=== PATIENT | male | born 1955 | race Caucasian/White ===

== ENCOUNTER 2019-07-28 12:46 | Outpatient (RCR) | payer OTHER, SELFPAY ==
[2019-07-28 13:01] VITALS: BMI 48.0
== END 2019-10-26 23:59 | disposition home or self-care (01) ==
LOC: ANHDMC 12:46
PROVIDERS: PCP Internal Medicine; Visit Provider Internal Medicine Endocrinology, Diabetes & Metabolism
DX: E11.65 Type 2 diabetes mellitus with hyperglycemia (principal); Z71.3 Dietary counseling and surveillance
CPT/HCPCS: 97802

== ENCOUNTER 2020-04-01 16:06 | Emergency (ER) | payer OTHER, SELFPAY ==
--- NOTE | ~2020-04-01 | XR_ITS ---
EXAMINATION: XR chest 2V DATE: 04/01/2020 18:16 INDICATION: Chest pain. TECHNIQUE: Frontal and lateral views of the chest were obtained. COMPARISON: Chest 2 views 03/15/2011 FINDINGS: The chest demonstrates clear lungs without pneumonia, pleural effusion, or pneumothorax. Th e heart size is normal. IMPRESSION: 1. No acute cardiopulmonary disease. Reviewed, dictated and finalized at location A.
[2020-04-01 16:33] VITALS: BP 143/88; PULSE 99; RESP 20; TEMP 36.3; O2SAT 98
--- NOTE | 2020-04-01 16:39 | ECG_ITS ---
Measurements Intervals [place] Rate: 92 P: 24 MS: 147 QRS: -38 QRSD: 88 T: 37 QT: 340 QTc: 422 Interpretive Statements SINUS RHYTHM LEFT AXIS DEVIATION LOW QRS VOLTAGE IN PRECORDIAL LEADS POOR R WAVE PROGRESSION, ANTERIOR LEADS BORDERLINE ECG Electronically Signed On 04-01-2020 20:28:48 CDT by Wai Bernal D.O.
[2020-04-01 16:51] LABS: Basophils Absolute Auto 0.1 K/mm3 (0.0-0.1); Basophils Percent Auto 0.6 % (0.2-1.2); Eosinophils Absolute Auto 0.3 K/mm3 (0-0.3); Eosinophils Percent Auto 3.8 % (0-4.4); Hematocrit 42.1 % (42.0-52.0); Hemoglobin 14.5 g/dL (14.0-18.0); Immature Granulocyte Absolute 0.02 K/mm3 (0.00-0.031); Immature Granulocyte Percent A 0.2 % (0-0.5); Lymphocytes Absolute Auto 3.57 K/mm3 (0.9-3.2); Lymphocytes Percent Auto 43.8 % (18.3-44.2); Mean Corpuscular HGB Conc 34.4 g/dl (32-36); Mean Corpuscular Hemoglobin 31.6 pg (26-34); Mean Corpuscular Volume 91.7 fl (80-100); Mean Platelet Volume 9.6 fl (7.4-10.4); Monocytes Absolute Auto 0.8 K/mm3 (0.1-0.6); Monocytes Percent Auto 9.2 % (2.6-8.5); Neutrophils Absolute Auto 3.5 K/mm3 (1.3-6.7); Neutrophils Percent Auto 42.4 % (45.5-73.1); Platelet Count Result 265 k/mm3 (150-375); Red Blood Count 4.59 M/mm3 (4.6-6.20); Red Cell Distribution Width 12.6 % (11.5-14.5); White Blood Count 8.2 K/mm3 (4.5-10.0)
[2020-04-01 17:02] LABS: Prothrombin Time 13.1 Seconds (11.1-14.7)
[2020-04-01 17:03] LABS: Partial Thromboplastin Time 30.9 SECONDS (22.3-36.8)
[2020-04-01 17:06] LABS: Anion Gap 10 mmol/L (8-16); Blood Urea Nitrogen 20 mg/dL (9-20); Calcium 10.3 mg/dL (8.4-10.2); Carbon Dioxide 24 mmol/L (22-30); Chloride 103 mmol/L (98-107); Estimated CRCL calculation 104 ml/min; Estimated Glomerular Filt Rate > 60; Glucose 203 mg/dL (75-110); Potassium 4.2 mmol/L (3.4-5.0); Sodium 137 mmol/L (137-145)
[2020-04-01 17:17] LABS: Troponin I < 0.012 ng/mL (0.000-0.034)
--- NOTE | 2020-04-01 18:50 | PC.NURSE ---
PT REFUSING IV AT THIS TIME DESPITE HAVING RATIONALE FOR IV IN CARDIAC PT EXPLAINED
--- NOTE | 2020-04-01 18:51 | ED.ARRPALP ---
HPI - Arrhythmia/Palpitations General Chief Complaint: Arrhythmia/Palpitations Stated Complaint: heart racing Time Seen by Provider: 04/01/20 18:40 Source: patient Mode of arrival: ambulatory Limitations: no limitations History of Present Illness HPI narrative: Patient is a 64-year-old male who presents to emergency department for evaluation of an episode of feeling like his heart was racing after walking from the bathroom to the bedroom lasted 20 minutes and resolved patient notes he felt slightly dyspneic during this.. Patient notes he has had resolution of his symptoms since then denies any complaints at this time symptoms occurred at approximately 3:00 today. Related Data Home Medications Medication Instructions Recorded Confirmed aspirin 81 mg tablet,delayed 81 mg PO DAILY 07/27/19 12/29/19 release glucosamine sulfate 500 mg tablet 500 mg PO DAILY tablet 07/27/19 12/29/19 Allergies Allergy/AdvReac Type Severity Reaction Status Date / Time No Known Allergies Allergy Verified 04/01/20 18:52 Review of Systems Review of Systems: All systems reviewed & are unremarkable except as noted in HPI and below PMFSH Social History Social History Smoking packs per day: 3 Smoking cigarettes per day: 60.0 Years smoked: 45 Smoking pack-years: 135.00 Smoking status: Current every day smoker Tobacco type: cigarettes Second hand tobacco smoke exposure: Yes Alcohol intake: never Gender identity (if verbalized by the patient): Male Sexual Orientation (if Verbalized by the Patient): Straight or Heterosexual Spiritual care concerns: No Exam Narrative: Exam Narrative: GENERAL: Well-appearing, obese, and in no acute distress. HEAD: Normocephalic, atraumatic. EYES: PERRLA and EOMI. ENT: Nares clear, no rhinorrhea or epistaxis. Mucous membranes moist. Oropharynx without tonsillar hypertrophy exudate or other lesions. NECK: Supple. No adenopathy or masses. No carotid bruits or JVD CHEST: Clear to auscultation. No respiratory distress. No wheezes rales or rhonchi HEART: Regular rate and rhythm. No murmur heard. Normal peripheral pulses. ABDOMEN: Soft, nontender, nondistended EXTREMITIES: Normal range of motion. No edema. SKIN: Warm, dry, no rash. NEURO: No focal deficits. Alert and oriented x3. Cranial nerves II through XII grossly intact PSYCH: Normal mood and affect. Course Course Emergency Course: Has been asymptomatic since onset felt appropriate for outpatient reevaluation made aware of case findings treatment plan and diagnosis patient in the room in no distress Vital Signs Vital signs: Vital Signs Temperature 97.3 F L 04/01/20 16:33 Pulse Rate 99 04/01/20 16:33 Respiratory Rate 20 04/01/20 16:33 Blood Pressure 143/88 H 04/01/20 16:33 Pulse Oximetry 98 04/01/20 16:33 Temperature 97.3 F L 04/01/20 16:33 Pulse Rate 82 04/01/20 18:54 Respiratory Rate 16 04/01/20 18:54 Blood Pressure 157/98 H 04/01/20 18:54 Pulse Oximetry 98 04/01/20 18:54 MDM - Arrhythmia/Palpitations MDM Narrative Medical decision making narrative: Patients EKGs and labs are without significant high risk changes. Cardiac risk factors were reviewd. Pain was not suddne or maximal in onset without tearing or ripping. quality. No other signs or symptoms to suggest aortic dissection. A low-risk Wells criteria is noted. PE is felt to be unlikely. No pneumonia or URI symptoms were seen on evaluation today. Patient is felt to b resonable for continued evaluation as an outpatient. Lab Data Result diagrams: 04/01/20 16:42 04/01/20 16:42 Labs: Lab Results 04/01/20 04/01/20 04/01/20 Range/Units 16:42 16:42 16:42 WBC 8.2 (4.5-10.0) K/mm3 RBC 4.59 L (4.6-6.20) M/mm3 Hgb 14.5 (14.0-18.0) g/dL Hct 42.1 (42.0-52.0) % MCV 91.7 (80-100) fl MCH 31.6 (26-34) pg MCHC 34.4 (32-36) g/dl
[2020-04-01 18:54] VITALS: BP 157/98; PULSE 82; RESP 16; O2SAT 98
[2020-04-01 19:57] LABS: Troponin I 0.025 ng/mL (0.000-0.034)
[2020-04-01 20:16] VITALS: BP 148/86; PULSE 78; RESP 16; TEMP 36.7; O2SAT 98
== END 2020-04-01 20:33 | disposition home or self-care (01) ==
PROVIDERS: Emergency Medicine; Emergency Provider Emergency Medicine; PCP Internal Medicine
DX: R00.2 Palpitations (principal); F17.210 Nicotine dependence, cigarettes, uncomplicated; Z79.82 Long term (current) use of aspirin; R07.9 Chest pain, unspecified
CPT/HCPCS: 36415; 71046; 80048; 84484; 85025; 85610; 85730; 93005; 99284

== ENCOUNTER 2020-06-15 13:45 | Outpatient (CLI) | payer OTHER, SELFPAY ==
--- NOTE | ~2020-06-15 | CT_ITS ---
EXAMINATION: CT abdomen pelvis wo/w con DATE: 06/15/2020 14:44 INDICATION: Gross hematuria TECHNIQUE: Computed tomography (CT) of the abdomen and pelvis was performed without intravenous contr ast. CT of the abdomen and pelvis was then performed with a total of 130 mL Omnipaque-350 intravenous contrast using a double-bolus technique for simultaneous opacification of the renal parenchyma and r enal collecting system. Automated exposure control and iterative reconstruction technique were employ ed. The dose-length product was 2837.50 mGy-cm. COMPARISON: 08/23/2016 FINDINGS: Lung bases are clear. Heart size is normal. No pericardial or pleural effusion. Liver, gallbladder, s pleen, pancreas and bilateral adrenal glands are normal. There is mild colonic diverticulosis with a sigmoid predominance. There is no adjacent inflammatory change to suggest diverticulitis. Small marilee l and a tiny appendix are normal. Fat-containing umbilical hernia measuring 5 x 4 x 3.8 cm. No free i ntraperitoneal gas or fluid. No pathologically enlarged abdominal or pelvic lymphadenopathy. Moderate to severe lower lumbar facet osteoarthritis. [place]'s disease. There are bridging osteophytes at mu ltiple levels in the lower thoracic spine, consistent with diffuse idiopathic skeletal hyperostosis ( DISH). Bilateral nephrolithiasis. There are couple obstructing 4 mm stones in the proximal right ureter with moderate right hydronephrosis. There are numerous (likely 20-30) 1-3 mm stones in the dependent aspe ct of both a middle and lower calyx of the right kidney. 5 mm nonobstructing stone at the left ureter opelvic junction with no left-sided hydronephrosis. Additional 1 mm stone at a lower pole of the left kidney. Bilateral kidneys enhance symmetrically. 1.4 cm right renal cyst. There is a small amount of excreted contrast layering in the dependent calyces and renal pelvis of the right kidney. The left r enal collecting system proximal to mid left ureter beyond the stone at the ureterovesicular junction are opacified with contrast and appear unremarkable with no urothelial irregularities. Bladder is nor mal. IMPRESSION: 1. Bilateral nephrolithiasis with large numerous 1-3 mm right renal stones and a couple larger 4 mm o bstructing stones in the proximal right ureter resulting in moderate right hydronephrosis. 2. 5 mm nonobstructing stone at the left ureteropelvic junction with only a single additional 1 mm le ft renal stone. 3. Moderate-sized fat-containing umbilical hernia. Reviewed, dictated and finalized at location A. TAL CAMPAIGN FUNDRAISER IMPRESSION: 1. Bilateral nephrolithiasis with large numerous 1-3 mm right renal stones and a couple larger 4 mm obstructing stones in the proximal right ureter resulting in moderate right hydronephrosis. 2. 5 mm nonobstructing stone at the left ureteropelvic junction with only a sin gle additional 1 mm left renal stone. 3. Moderate-sized fat-containing umbilical hernia.
--- NOTE | ~2020-06-15 | XR_ITS ---
XR abdomen/kub 1V 06/15/2020 14:11 INDICATION: Gross hematuria TECHNIQUE: KUB COMPARISON: Comparison to multiple prior studies sequentially, with oldest reviewed study dated 10/31. FINDINGS: Bowel gas pattern is normal. There is no evidence of free air, mass, organomegaly, ascites or obstruction. There are calcifications on the right at the L4 level, compatible with ureteral ston es. The bones appear intact. Lung bases are unremarkable. There are clustered stones in the lower amos e of the right kidney. IMPRESSION: 1: Right mid ureteral stones at the L4 level. 2: Right renal stones.. Reviewed, dictated and finalized at location B. TYPE MACHINIST
[2020-06-15 14:25] LABS: Estimated Glomerular Filt Rate > 60
== END 2020-06-15 13:46 | disposition home or self-care (01) ==
PROVIDERS: PCP Internal Medicine; Visit Provider Nurse Practitioner Adult Health
DX: N13.4 Hydroureter (principal); K42.9 Umbilical hernia without obstruction or gangrene; N20.2 Calculus of kidney with calculus of ureter
CPT/HCPCS: 74018; 74178; Q9967

== ENCOUNTER 2020-06-24 13:02 | Outpatient (CLI) | payer OTHER, SELFPAY ==
[2020-06-24 13:49] LABS: INR 0.9; Prothrombin Time 13.2 Seconds (11.1-14.7)
[2020-06-24 13:50] LABS: Partial Thromboplastin Time 32.6 SECONDS (22.3-36.8)
[2020-06-24 13:57] LABS: Anion Gap 10 mmol/L (8-16); Blood Urea Nitrogen 19 mg/dL (9-20); Carbon Dioxide 28 mmol/L (22-30); Chloride 101 mmol/L (98-107); Estimated Glomerular Filt Rate > 60; Glucose 263 mg/dL (75-110); Potassium 4.3 mmol/L (3.4-5.0); Sodium 139 mmol/L (137-145)
== END 2020-06-24 13:03 | disposition home or self-care (01) ==
LOC: ANHSURGERY 13:03
PROVIDERS: Anesthesiology; PCP Internal Medicine; Visit Provider Urology
DX: Z01.818 Encounter for other preprocedural examination (principal); E11.65 Type 2 diabetes mellitus with hyperglycemia; N20.1 Calculus of ureter
CPT/HCPCS: 36415; 80048; 85610; 85730; 87086; 87088

== ENCOUNTER 2020-06-28 02:19 | Outpatient (CLI) | payer OTHER, SELFPAY ==
[2020-06-28 22:41] LABS: SARS-CoV-2 RNA PCR Negative
== END 2020-06-28 02:20 | disposition home or self-care (01) ==
LOC: ANHCOVIDDT 02:19
PROVIDERS: PCP Internal Medicine; Visit Provider Urology
DX: Z01.812 Encounter for preprocedural laboratory examination (principal); Z20.828 Contact with and (suspected) exposure to other viral communicable diseases
CPT/HCPCS: 87635; C9803; U0003

== ENCOUNTER 2020-07-26 01:29 | Outpatient (CLI) | payer OTHER, SELFPAY ==
[2020-07-26 19:22] LABS: SARS-CoV-2 RNA PCR Negative
== END 2020-07-26 01:30 | disposition home or self-care (01) ==
LOC: ANHCOVIDDT 01:30
PROVIDERS: PCP Internal Medicine; Visit Provider Urology
DX: Z01.812 Encounter for preprocedural laboratory examination (principal); Z20.822 Contact with and (suspected) exposure to COVID-19
CPT/HCPCS: C9803; U0003; U0005

== ENCOUNTER 2020-07-26 08:57 | Outpatient (CLI) | payer OTHER, SELFPAY ==
[2020-07-26 09:32] LABS: Prothrombin Time 13.3 Seconds (11.1-14.7)
[2020-07-26 09:33] LABS: Partial Thromboplastin Time 29.6 SECONDS (22.3-36.8)
== END 2020-07-26 08:58 | disposition home or self-care (01) ==
LOC: ANHSURGERY 08:59
PROVIDERS: PCP Internal Medicine; Visit Provider Urology
DX: Z01.818 Encounter for other preprocedural examination (principal); N20.1 Calculus of ureter
CPT/HCPCS: 36415; 85610; 85730; 87086; C9803; U0003; U0005

== ENCOUNTER 2020-07-29 02:30 | Day surgery (SDC) | payer OTHER, SELFPAY ==
[2020-06-22 15:33] VITALS: BMI 47.7
--- NOTE | 2020-06-30 10:00 | WPDANESEPPF ---
Anes - Initial Pre Proc Eval Procedure: Operation Date: 07/01/20 07:30 Proposed Procedures p Right Extracorporeal Shock Wave Lithotripsy - Timur Romo MD s Possible Cystoscopy, Possible Bilateral Ureteroscopy with Stone Extraction,Possible Bilateral Retrograde Pyelogram - Timur Romo MD s Possible Holmium Laser Procedure, Possible Bilateral Stent Placement - Timur Romo MD Date/Time: 06/30/20 10:00 Surgeon: Timur Romo MD Pre Op Diagnosis: bilateral ureteral stones Patient Data Age: 64 Gender: M Height: 1.68 m Weight: 134 kg Allergies Allergy/AdvReac Type Severity Reaction Status Date / Time No Known Allergies Allergy Verified 06/22/20 15:29 Home Medications Medication Instructions Recorded Confirmed Type blood sugar diagnostic #300 each 07/24/19 06/21/20 Rx aspirin 81 mg tablet,delayed 81 mg PO DAILY 07/27/19 06/22/20 History release glucosamine sulfate 500 mg tablet 500 mg PO HS tablet 07/27/19 06/22/20 History lancets 33 gauge See Rx Instructions .ROUTE 10/26/19 06/22/20 Rx .COMPLEX #300 unspecified metformin 500 mg tablet,extended 1,000 mg PO BID #360 tablet 03/28/20 06/22/20 Rx release 24 hr atorvastatin 10 mg PO QAM 06/22/20 06/22/20 History cetirizine [All Day Allergy 10 mg PO HS 06/22/20 06/22/20 History (cetirizine)] meloxicam 15 mg PO HS 06/22/20 06/22/20 History ycxxnwrf-pwb-CM-lycopen-lutein 1 tablet PO DAILY 06/22/20 06/22/20 History [Centrum Silver Men] quinapril-hydrochlorothiazide 1 tablet PO HS 06/22/20 06/22/20 History PMFSH Past Medical History Medical History (Updated 06/30/20 @ 10:00 by Maximo Vega DO) Benign essential hypertension Hyperlipidemia LDL goal <100 Morbid obesity Obstructive sleep apnea CPAP Type 2 diabetes mellitus with hyperglycemia Family History Family History Sibling Diabetes mellitus Patient's sister is in good health Patient's brother is in good health Family history of cardiovascular disease Father Family history of cardiovascular disease, Onset Age: 80 Mother Family history of cardiovascular disease, Onset Age: 90 Other Cerebrovascular accident Family history of arthritis Family history of lung disease Hypertension Social History Social History Smoking packs per day: 3 Smoking cigarettes per day: 60.0 Years smoked: 45 Smoking pack-years: 135.00 Smoking status: Current every day smoker Tobacco type: cigarettes Second hand tobacco smoke exposure: Yes Additional smoking assessment comments: STATES SMOKES 3-4 CIGS/DAY/45-50YRS Alcohol intake: never Substance use: never Substance use type: does not use Gender identity (if verbalized by the patient): Male Spiritual care concerns: No Anes - Eval Final PreProcedure Day of Procedure 06/30/20 10:00 Patient weight: morbidly obese Heart: regular rate and rhythm Lungs: clear to auscultation and normal air movement Airway: Mallampati scale class II Neurological: alert and oriented Last oral intake: >/= 8 hours ASA classification: III Emergent: no Anesthetic plan: proceed Anesthesia type and monitoring: general LMA and standard monitoring Informed Consent: The patient's anesthetic plan and its attendant risks and benefits were discussed with the patient/family/POA. Questions were solicited and answers provided to the satisfaction of the patient/family/POA.
[2020-07-25 15:58] VITALS: BMI 45.8
[2020-07-29] VITALS (7 sets, daily range): BP systolic 120–171; BP diastolic 67–98; PULSE 64–75; RESP 12–20; TEMP 36.1–36.6; O2SAT 94–99
--- NOTE | ~2020-07-29 | XR_ITS ---
EXAMINATION: XR abdomen/kub 1V INDICATION: Urolithiasis and hematuria TECHNIQUE: Supine views of the abdomen were obtained on 2 radiographs. COMPARISON: CT, 06/15/2020 FINDINGS: An 8 mm stone projects in the expected location of the left ureteropelvic junction. Stones measuring 2.8 and 2.2 cm are seen in the lower pole of the right kidney. Two adjacent stones measurin g 10 mm in total size project in the right mid ureter between the L4 and L5 transverse processes. The bowel gas pattern is normal. Prostatic calcifications are noted. IMPRESSION: 1. Stones at the left ureteropelvic junction, in the right mid ureter, and in the right kidney lower pole. Reviewed, dictated and finalized at location A. T PLANNER IMPRESSION: 1. Stones at the left ureteropelvic junction, in the right mid ureter, and in t he right kidney lower pole.
--- NOTE | 2020-07-29 06:55 | PM.HPGS ---
History of Present Illness History of Present Illness Consent: Risks, benefits, and alternatives have been discussed and questions answered. Patient agrees to proceed with procedure. Chief complaint: bilateral ureteral stones Narrative: Adi Estrella Jr. is a 64 year old male who recently underwent evaluation for hematuria. CT scan of the abdomen and pelvis revealed multiple renal and ureteral calculi. Specifically he has multiple small stones right kidney, an obstructing 6-7 mm right mid ureteral stone and a 5 mm left renal pelvic stone. Review of Systems Cardiovascular: Cardiovascular: Denies chest pain, Denies lightheadedness, Denies palpitations and Denies dyspnea Respiratory: Respiratory: Denies dyspnea Gastrointestinal: Gastrointestinal: Denies diarrhea, Denies nausea and Denies vomiting Genitourinary: Genitourinary: Denies hematuria and Denies dysuria Endocrine: Endocrine: Denies palpitations [facility] Past Medical History Medical History Benign essential hypertension Hyperlipidemia LDL goal <100 Morbid obesity Obstructive sleep apnea CPAP Type 2 diabetes mellitus with hyperglycemia Family History Family History Sibling Diabetes mellitus Patient's sister is in good health Patient's brother is in good health Family history of cardiovascular disease Father Family history of cardiovascular disease, Onset Age: 80 Mother Family history of cardiovascular disease, Onset Age: 90 Other Cerebrovascular accident Family history of arthritis Family history of lung disease Hypertension Social History Social History Smoking packs per day: 0.25 Smoking cigarettes per day: 5.0 Years smoked: 50 Smoking pack-years: 12.50 Smoking status: Current every day smoker Tobacco type: cigarettes Second hand tobacco smoke exposure: Yes Additional smoking assessment comments: STATES SMOKES 3-4 CIGS/DAY/45-50YRS Alcohol intake: never Alcohol use details: SOCIALLY YEARS AGO Substance use: never Substance use type: does not use Living arrangements: with family Additional living arrangements comments: Gender identity (if verbalized by the patient): Male Spiritual care concerns: No Meds Home Medications and Allergies Home Medications Medication Instructions Recorded Confirmed Type blood sugar diagnostic #300 each 07/24/19 07/25/20 Rx aspirin 81 mg tablet,delayed 81 mg PO DAILY 07/27/19 07/25/20 History release glucosamine sulfate 500 mg tablet 500 mg PO HS tablet 07/27/19 07/25/20 History lancets 33 gauge See Rx Instructions .ROUTE 10/26/19 07/25/20 Rx .COMPLEX #300 unspecified atorvastatin 10 mg PO QAM 06/22/20 07/25/20 History cetirizine [All Day Allergy 10 mg PO HS 06/22/20 07/25/20 History (cetirizine)] meloxicam 15 mg PO HS 06/22/20 07/25/20 History pzkdrogh-ydn-PZ-lycopen-lutein 1 tablet PO DAILY 06/22/20 07/25/20 History [Centrum Silver Men] quinapril-hydrochlorothiazide 1 tablet PO HS 06/22/20 07/25/20 History metformin 500 mg tablet,extended 1,000 mg PO BID #360 tablet 07/11/20 07/25/20 Rx release 24 hr Allergies Allergy/AdvReac Type Severity Reaction Status Date / Time No Known Allergies Allergy Verified 07/25/20 15:53 Exam Const: General: no acute distress Resp: Effort & Inspection: normal respiratory effort GI: Inspection: non-distended GI Palp: No abdominal tenderness and No Guarding due to palpation present (GI) Auscultation: normal bowel sounds Assessment and Plan Assessment and plan (1) Bilateral renal stones: Code(s): N20.0 - Calculus of kidney Status: Acute (2) Right ureteral stone: Code(s): N20.1 - Calculus of ureter Status: Acute Assessment and Plan: Cystoscopy, right ureteral stent plac
[2020-07-29 07:55] LABS: Glucose Point of Care 155 (65-105)
[2020-07-29] MEDS: LACTATED RINGERS 1,000 ML 30 ML IV CONT ×2 (08:06→11:14)
--- NOTE | 2020-07-29 08:25 | WPDHPUPDATE1 ---
History and Physical Update Update Date/Time: 07/29/20 08:25 History and Physical has been reviewed, including an updated exam of the patient. There are NO changes in the patient's condition. Risks, benefits, and alternatives have been discussed and questions answered. Patient agrees to proceed with procedure.
--- NOTE | 2020-07-29 09:08 | WPDANESEPPF ---
Anes - Initial Pre Proc Eval Procedure: Operation Date: 07/29/20 09:30 Proposed Procedures p Right Extracorporeal Shock Wave Lithotripsy - Timur Romo MD s Possible Cystoscopy, Possible Bilateral Ureteroscopy with Stone Extraction,Possible Bilateral Retrograde Pyelogram - Timur Romo MD s Possible Holmium Laser Procedure, Possible Bilateral Stent Placement - Timur Romo MD Date/Time: 07/29/20 09:08 Surgeon: Timur Romo MD Pre Op Diagnosis: bilateral ureteral stones Patient Data Age: 64 Gender: M Height: 5 ft 6 in Weight: 131.2 kg Last Vital Signs Temp 36.6 C 07/29/20 08:12 Pulse 75 07/29/20 08:12 Resp 16 07/29/20 08:12 BP 150/78 H 07/29/20 08:12 Pulse Ox 97 07/29/20 08:12 Allergies Allergy/AdvReac Type Severity Reaction Status Date / Time No Known Allergies Allergy Verified 07/29/20 07:45 Home Medications Medication Instructions Recorded Confirmed Type blood sugar diagnostic #300 each 07/24/19 07/25/20 Rx aspirin 81 mg tablet,delayed 81 mg PO DAILY 07/27/19 07/29/20 History release glucosamine sulfate 500 mg tablet 500 mg PO HS tablet 07/27/19 07/29/20 History lancets 33 gauge See Rx Instructions .ROUTE 10/26/19 07/25/20 Rx .COMPLEX #300 unspecified atorvastatin 10 mg PO QAM 06/22/20 07/29/20 History cetirizine [All Day Allergy 10 mg PO DAILY 06/22/20 07/29/20 History (cetirizine)] meloxicam 15 mg PO HS 06/22/20 07/29/20 History dgewskxt-phi-IA-lycopen-lutein 1 tablet PO DAILY 06/22/20 07/29/20 History [Centrum Silver Men] quinapril-hydrochlorothiazide 1 tablet PO DAILY 06/22/20 07/29/20 History metformin 500 mg tablet,extended 1,000 mg PO BID #360 tablet 07/11/20 07/29/20 Rx release 24 hr Laboratory Tests 07/29/20 07:53 POC Capillary Glucose 155 mg/dl H mg/dl (65-105) Patient hx anesthesia problems: none Family hx anesthesia problems: none PMFSH Past Medical History Medical History Benign essential hypertension Hyperlipidemia LDL goal <100 Morbid obesity Obstructive sleep apnea CPAP Type 2 diabetes mellitus with hyperglycemia Family History Family History Sibling Diabetes mellitus Patient's sister is in good health Patient's brother is in good health Family history of cardiovascular disease Father Family history of cardiovascular disease, Onset Age: 80 Mother Family history of cardiovascular disease, Onset Age: 90 Other Cerebrovascular accident Family history of arthritis Family history of lung disease Hypertension Social History Social History Smoking packs per day: 0.25 Smoking cigarettes per day: 5.0 Years smoked: 50 Smoking pack-years: 12.50 Smoking status: Current every day smoker Tobacco type: cigarettes Second hand tobacco smoke exposure: Yes Additional smoking assessment comments: STATES SMOKES 3-4 CIGS/DAY/45-50YRS Alcohol intake: never Alcohol use details: SOCIALLY YEARS AGO Substance use: never Substance use type: does not use Living arrangements: with family Additional living arrangements comments: Gender identity (if verbalized by the patient): Male Spiritual care concerns: No Anes - Eval Final PreProcedure Day of Procedure 07/29/20 09:08 Patient weight: morbidly obese Heart: regular rate and rhythm Lungs: clear to auscultation Airway: Mallampati scale class II Neurological: alert and oriented Last oral intake: >/= 8 hours ASA classification: III Emergent: no Anesthetic plan: proceed Anesthesia type and monitoring: general LMA and standard monitoring Informed Consent: The patient's anesthetic plan and its attendant risks and benefits were discussed with the patient/family/POA. Questions were solicited and answers provided to the satisfaction of t
[2020-07-29] MEDS: ceFAZolin 3 GM/D5W 100 ML 100 ML IVPB (09:41)
[2020-07-29] MEDS: LIDOCAINE HCL 2% GEL UROJET 10 ML PKG MUCOUS MEM (10:00)
--- NOTE | 2020-07-29 10:56 | PM.PROC ---
Procedure Note - Detailed Date of procedure: 07/29/20 Pre-op diagnosis: bilateral ureteral stones Post-op diagnosis: same Procedure performed: 1. Cystoscopy with left ureteroscopy, laser lithotripsy and stone extraction 2. Bilateral ureteral stent placement 3. Right ureteral ESWL Description of procedure: patient is brought to the operative suite where he has prepped and draped in routine sterile fashion while in a dorsal lithotomy position. 2% xylocaine jelly was introduced intraurethrally and general anesthesia administered per the anesthesia department. Twenty-one F rigid cystoscope was placed in his bladder. He has moderate lateral lobe hyperplasia without a significant median lobe. There is no intravesical foreign body or neoplasm. His a single orthotopic ureteral orifice bilaterally. A 0.035 in glidewire was advanced into the left renal pelvis under fluoroscopy. Distal ureters dilated with an 8 F / 10 F dilator and a 12 F/ 14 F ureteral access sheath is placed. Left ureteroscopy was undertaken with a 7.5 F flexible ureteral scope. His 6-7 mm left UPJ stone is changed into a mid-pole calyx. Using a 273 micron holmium laser fiber fractured into tiny pieces in removed all sizable pieces with a 1.9 F disposable Escape basket. I then placed bilateral 4.8 F ureteral stents with the proximal coils in the renal pelvis and distal coils in the bladder. He has and placed in a supine position in the focal point of the Lithotripter was placed in his 7 mm right mid ureteral calculus. Total of 3000 shocks were delivered at a power setting of 5. Patient tolerated this procedure well was taken recovery room good condition. Anesthesia: GLMA Surgeon: Timur Romo MD Estimated blood loss (mL): 0 Drains: Yes (Bilateral 4.8F ureteral stents) Packing: No Pathology: none sent Complications: No immediate complications Condition: stable Disposition: PACU
[2020-07-29 11:24] LABS: Glucose Point of Care 139 (65-105)
== END 2020-07-29 13:05 | disposition home or self-care (01) ==
PROVIDERS: PCP Internal Medicine; Visit Provider Urology
PROC: (CPT 50590; principal; 2020-07-29 09:30)
PROC: (CPT 52352; 2020-07-29 09:30)
PROC: (CPT 50590; 2020-07-29 09:30)
DX: N20.2 Calculus of kidney with calculus of ureter (principal); Z79.82 Long term (current) use of aspirin; F17.210 Nicotine dependence, cigarettes, uncomplicated; I10 Essential (primary) hypertension; G47.33 Obstructive sleep apnea (adult) (pediatric); E11.65 Type 2 diabetes mellitus with hyperglycemia; E78.5 Hyperlipidemia, unspecified; E66.8 Other obesity; Z68.42 Body mass index [BMI] 45.0-49.9, adult; Z79.84 Long term (current) use of oral hypoglycemic drugs
CPT/HCPCS: 50590; 52332; 52356; 74018; 82365; 88300; A9270; C1769; C1894; C2617; J0690; J2250; J2405; J2704; J3010; J7120; Q9966

== ENCOUNTER 2020-08-09 11:33 | Outpatient (CLI) | payer OTHER, SELFPAY ==
--- NOTE | ~2020-08-09 | XR_ITS ---
EXAMINATION: XR abdomen/kub 1V EXAM DATE: 08/09/2020 11:50 INDICATION: Bilateral kidney stones. TECHNIQUE: Frontal projection of the upper abdomen, frontal projection lower abdomen/pelvis for inter pretation. Comparison is made to prior examination from 07/29/2019. FINDINGS: There are multiple stone fragments identified in right calyces and also along the proximal aspect of the right ureteral stent. Both right and left ureteral stents appear in expected position. Nonobstructive bowel gas pattern. Mild to moderate bony degenerative changes. IMPRESSION: Right proximal ureteral, inferior calyceal stone fragments. Reviewed, dictated and finalized at location A. PORTER
== END 2020-08-09 11:34 | disposition home or self-care (01) ==
PROVIDERS: Family Provider Internal Medicine; PCP Internal Medicine; Visit Provider Nurse Practitioner Adult Health
DX: N20.2 Calculus of kidney with calculus of ureter (principal)
CPT/HCPCS: 74018

== ENCOUNTER 2020-09-08 16:14 | Outpatient (CLI) | payer OTHER, SELFPAY ==
--- NOTE | ~2020-09-08 | XR_ITS ---
EXAMINATION: XR abdomen/kub 1V DATE: 09/08/2020 17:08 INDICATION: Left kidney stone. TECHNIQUE: A supine view of the abdomen on 2 radiographs was obtained. COMPARISON: CT abdomen and pelvis 06/15/2020 FINDINGS: There are no dilated loops of bowel. There is a right internal ureteral stent in expected p osition. There are approximately 3 stones in proximal right ureter measuring up to 5 mm. There are in numerable stones measuring up to 3 mm in right kidney lower pole. IMPRESSION: 1. Stones in the proximal right ureter and right kidney. Right internal ureteral stent in expected po sition. Reviewed, dictated and finalized at location A. PER OPERATOR IMPRESSION: 1. Stones in the proximal right ureter and right kidney. Right internal uretera l stent in expected position.
== END 2020-09-08 16:15 | disposition home or self-care (01) ==
PROVIDERS: PCP Internal Medicine; Visit Provider Urology
DX: N20.0 Calculus of kidney (principal)
CPT/HCPCS: 74018

== ENCOUNTER 2020-10-03 12:32 | Outpatient (CLI) | payer OTHER, SELFPAY ==
--- NOTE | ~2020-10-03 | XR_ITS ---
XR abdomen/kub 1V DATE: 10/03/2020 12:44 INDICATION: Ureteral calculus TECHNIQUE: AP projection, 2 views COMPARISON: 09/08/2020 KUB FINDINGS: A right internal urinary stent is present, the proximal pigtail overlying the superior pole infundibulum of the right kidney, the distal pigtail overlying the right side of the urinary bladder . There is an approximately 6.7 cm linear array of calculi at the proximal right ureter (Steinstrasse). There are innumerable calcified calculi of the lower pole of the right kidney. The psoas shadows are intact. There is a prominent amount of fecal material in the right and transver se colon. No bowel obstruction is evident. Diffuse idiopathic skeletal hyperostosis of the thoracic spine. IMPRESSION: Numerous right lower pole renal calcified calculi 6.7 cm [address] of proximal right ureter Right internal urinary stent Reviewed, dictated and finalized at [facility]. Reviewed, dictated and finalized at [facility].
== END 2020-10-03 12:33 | disposition home or self-care (01) ==
LOC: ANHIMG 12:34
PROVIDERS: PCP Internal Medicine; Visit Provider Urology
DX: N20.1 Calculus of ureter (principal); N20.0 Calculus of kidney; Z96.0 Presence of urogenital implants
CPT/HCPCS: 74018

== ENCOUNTER 2020-10-28 14:21 | Outpatient (CLI) | payer OTHER, SELFPAY ==
[2020-10-28 15:01] LABS: Anion Gap 8 mmol/L (8-16); Blood Urea Nitrogen 18 mg/dL (9-20); Calcium 9.8 mg/dL (8.4-10.2); Carbon Dioxide 28 mmol/L (22-30); Chloride 105 mmol/L (98-107); Estimated Glomerular Filt Rate > 60; Glucose 234 mg/dL (75-110); Potassium 4.3 mmol/L (3.4-5.0); Sodium 141 mmol/L (137-145)
[2020-10-28 15:02] LABS: Prothrombin Time 13.8 Seconds (11.1-14.7)
[2020-10-28 15:03] LABS: Partial Thromboplastin Time 27.9 SECONDS (22.3-36.8)
== END 2020-10-28 14:22 | disposition home or self-care (01) ==
PROVIDERS: Anesthesiology; PCP Internal Medicine; Visit Provider Urology
DX: Z01.818 Encounter for other preprocedural examination (principal); N20.1 Calculus of ureter; E11.9 Type 2 diabetes mellitus without complications
CPT/HCPCS: 36415; 80048; 85610; 85730; 87086; 87088

== ENCOUNTER → 2020-11-01 03:44 | Outpatient (CLI) | payer OTHER, SELFPAY ==
[2020-11-01 20:31] LABS: SARS-CoV-2 RNA PCR Negative
== END ==
PROVIDERS: PCP Internal Medicine; Visit Provider Urology
DX: Z01.812 Encounter for preprocedural laboratory examination (principal); Z20.822 Contact with and (suspected) exposure to COVID-19
CPT/HCPCS: C9803; U0003; U0005

== ENCOUNTER 2020-11-04 02:02 | Day surgery (SDC) | payer OTHER, SELFPAY ==
[2020-10-25 13:31] VITALS: BMI 21.3
--- NOTE | 2020-10-27 08:09 | PM.HPGS ---
History of Present Illness History of Present Illness Consent: Risks, benefits, and alternatives have been discussed and questions answered. Patient agrees to proceed with procedure. Chief complaint: right ureteral steinstrasse Narrative: Adi Estrella Jr. is a 65 year old male with recurrent urolithiasis. In July 2020 he underwent left ureteroscopy with stone extraction and right ESWL. Unfortunately, the stone fragments in the right mid ureter have failed to pass and he presents now for a 2nd ESWL treatment. He is aware of the risk including, limited to, retroperitoneal bleeding, injury to the kidney, persistent fragments. Review of Systems Cardiovascular: Cardiovascular: Denies chest pain, Denies lightheadedness, Denies palpitations and Denies dyspnea Respiratory: Respiratory: Denies dyspnea Gastrointestinal: Gastrointestinal: Denies diarrhea, Denies nausea and Denies vomiting Genitourinary: Genitourinary: Denies hematuria and Denies dysuria Endocrine: Endocrine: Denies palpitations PMFSH Past Medical History Medical History Benign essential hypertension Hyperlipidemia LDL goal <100 Morbid obesity Obstructive sleep apnea CPAP Type 2 diabetes mellitus with hyperglycemia Family History Family History Sibling Diabetes mellitus Patient's sister is in good health Patient's brother is in good health Family history of cardiovascular disease Father Family history of cardiovascular disease, Onset Age: 80 Mother Family history of cardiovascular disease, Onset Age: 90 Other Cerebrovascular accident Family history of arthritis Family history of lung disease Hypertension Social History Social History Smoking packs per day: 0.25 Smoking cigarettes per day: 5.0 Years smoked: 50 Smoking pack-years: 12.50 Smoking status: Current every day smoker Tobacco type: cigarettes Second hand tobacco smoke exposure: Yes Additional smoking assessment comments: STATES SMOKED 3-4 CIGARETTS/DAY/45-50YRS Alcohol intake: never Substance use: never Substance use type: does not use Additional living arrangements comments: Gender identity (if verbalized by the patient): Male Spiritual care concerns: No Meds Home Medications and Allergies Home Medications Medication Instructions Recorded Confirmed Type blood sugar diagnostic #300 each 07/24/19 10/25/20 Rx aspirin 81 mg tablet,delayed 81 mg PO DAILY 07/27/19 10/25/20 History release glucosamine sulfate 500 mg tablet 500 mg PO HS tablet 07/27/19 10/25/20 History lancets 33 gauge See Rx Instructions .ROUTE 10/26/19 10/25/20 Rx .COMPLEX #300 unspecified All Day Allergy (cetirizine) 10 mg PO DAILY 06/22/20 10/25/20 History Centrum Silver Men 1 tablet PO DAILY 06/22/20 10/25/20 History meloxicam 15 mg PO HS 06/22/20 10/25/20 History quinapril-hydrochlorothiazide 1 tablet PO DAILY 06/22/20 10/25/20 History metformin 500 mg tablet,extended 1,000 mg PO BID #360 tablet 10/03/20 10/25/20 Rx release 24 hr atorvastatin 10 mg tablet 10 mg PO QAM #90 tablet 10/18/20 10/25/20 Rx Allergies Allergy/AdvReac Type Severity Reaction Status Date / Time No Known Allergies Allergy Verified 10/25/20 13:25 Exam Const: General: no acute distress Resp: Effort & Inspection: normal respiratory effort GI: Inspection: non-distended GI Palp: No abdominal tenderness and No Guarding due to palpation present (GI) Auscultation: normal bowel sounds Assessment and Plan Assessment and plan (1) Right ureteral stone: Code(s): N20.1 - Calculus of ureter Status: Acute Assessment and Plan: Right ESWL
--- NOTE | 2020-11-03 10:06 | WPDANESEPPF ---
Anes - Initial Pre Proc Eval Procedure: Operation Date: 11/04/20 08:30 Proposed Procedures p Right Extracorporeal Shock Wave Lithotripsy - Timur Romo MD Date/Time: 11/03/20 10:06 Surgeon: Timur Romo MD Pre Op Diagnosis: right ureteral steinstrasse Patient Data Age: 65 Gender: M Height: 1.68 m Weight: 60 kg Allergies Allergy/AdvReac Type Severity Reaction Status Date / Time No Known Allergies Allergy Verified 11/04/20 07:15 Home Medications Medication Instructions Recorded Confirmed Type blood sugar diagnostic #300 each 07/24/19 11/04/20 Rx aspirin 81 mg tablet,delayed 81 mg PO DAILY 07/27/19 11/04/20 History release glucosamine sulfate 500 mg tablet 500 mg PO HS tablet 07/27/19 11/04/20 History lancets 33 gauge See Rx Instructions .ROUTE 10/26/19 11/04/20 Rx .COMPLEX #300 unspecified All Day Allergy (cetirizine) 10 mg PO DAILY 06/22/20 11/04/20 History Centrum Silver Men 1 tablet PO DAILY 06/22/20 11/04/20 History meloxicam 15 mg PO HS 06/22/20 11/04/20 History quinapril-hydrochlorothiazide 1 tablet PO DAILY 06/22/20 11/04/20 History metformin 500 mg tablet,extended 1,000 mg PO BID #360 tablet 10/03/20 11/04/20 Rx release 24 hr atorvastatin 10 mg tablet 10 mg PO QAM #90 tablet 10/18/20 11/04/20 Rx Patient hx anesthesia problems: none Family hx anesthesia problems: none PMFSH Past Medical History Medical History Benign essential hypertension Hyperlipidemia LDL goal <100 Morbid obesity Obstructive sleep apnea CPAP Type 2 diabetes mellitus with hyperglycemia Family History Family History Sibling Diabetes mellitus Patient's sister is in good health Patient's brother is in good health Family history of cardiovascular disease Father Family history of cardiovascular disease, Onset Age: 80 Mother Family history of cardiovascular disease, Onset Age: 90 Other Cerebrovascular accident Family history of arthritis Family history of lung disease Hypertension Social History Social History Smoking packs per day: 0.25 Smoking cigarettes per day: 5.0 Years smoked: 50 Smoking pack-years: 12.50 Smoking status: Current every day smoker Tobacco type: cigarettes Second hand tobacco smoke exposure: Yes Additional smoking assessment comments: STATES SMOKED 3-4 CIGARETTS/DAY/45-50YRS Alcohol intake: never Substance use: never Substance use type: does not use Living arrangements: with family Additional living arrangements comments: Gender identity (if verbalized by the patient): Male Spiritual care concerns: No Anes - Eval Final PreProcedure Day of Procedure 11/03/20 10:06 Patient weight: obese Heart: regular rate and rhythm Lungs: clear to auscultation and normal air movement Airway: Mallampati scale class II Neurological: alert and oriented Last oral intake: >/= 8 hours ASA classification: III Emergent: no Anesthetic plan: proceed Anesthesia type and monitoring: general LMA Informed Consent: The patient's anesthetic plan and its attendant risks and benefits were discussed with the patient/family/POA. Questions were solicited and answers provided to the satisfaction of the patient/family/POA.
[2020-11-04] VITALS (7 sets, daily range): BP systolic 126–155; BP diastolic 67–92; PULSE 66–82; RESP 12–26; TEMP 37–37.3; O2SAT 96–99
--- NOTE | ~2020-11-04 | XR_ITS ---
XR abdomen/kub 1V DATE: 11/04/2020 06:35 INDICATION: Lithotripsy TECHNIQUE: 2 AP views of the abdomen COMPARISON: 10/03/2020 KUB FINDINGS: A right internal urinary stent is again noted, the proximal pigtail overlying the right christian al pelvis, distal pigtail overlying the urinary bladder right of midline. There are innumerable calcifications overlying the lower pole of the right kidney. There are numerous calcifications overlying the right ureteropelvic and proximal ureteral area (Steinstrasse). No left renal calcifications are evident. The psoas shadows are intact. No visceromegaly is evident. The bowel gas pattern is unremarkable, wit hout evidence of obstruction. IMPRESSION: Right internal urinary stent Numerous right lower pole renal calcifications, numerous calcifications the right ureteropelvic junct ion and proximal right ureter (Steinstrasse) Reviewed, dictated and finalized at [facility]. Reviewed, dictated and finalized at [facility]. IMPRESSION: Right internal urinary stent Numerous right lower pole renal calcifications, numerous calcifications the rig ht ureteropelvic junction and proximal right ureter (Steinstrasse)
--- NOTE | 2020-11-04 07:00 | WPDHPUPDATE1 ---
History and Physical Update Update Date/Time: 11/04/20 07:00 History and Physical has been reviewed, including an updated exam of the patient. There are NO changes in the patient's condition. Risks, benefits, and alternatives have been discussed and questions answered. Patient agrees to proceed with procedure.
[2020-11-04] MEDS: LACTATED RINGERS 1,000 ML 30 ML IV CONT (07:03)
[2020-11-04 07:06] LABS: Glucose Point of Care 120 (65-105)
[2020-11-04] MEDS: ceFAZolin 3 GM/D5W 100 ML 100 ML IVPB (08:38)
--- NOTE | 2020-11-04 08:55 | PM.PROC ---
Procedure Note - Detailed Date of procedure: 11/04/20 Pre-op diagnosis: right ureteral steinstrasse Post-op diagnosis: same Procedure performed: Right ESWL Description of procedure: The patient was brought to the operative suite where he was placed in the supine position on the Dornier lithotripsy table. The focal point of the lithotripter was placed at 2 contiguous 4-5mm continguous stone fragments. A total of 3000 shocks were delivered at a power setting of 6. There appeared to be good fragmentation of the stone. The patient tolerated the procedure well and was taken to the recovery room in good condition. Anesthesia: GLMA Surgeon: Timur Romo MD Drains: No Packing: No Pathology: none sent Complications: No immediate complications Condition: stable Disposition: PACU
[2020-11-04 09:36] LABS: Glucose Point of Care 140 (65-105)
== END 2020-11-04 11:01 | disposition home or self-care (01) ==
PROVIDERS: PCP Internal Medicine; Visit Provider Urology
PROC: (CPT 50590; principal; 2020-11-04 08:30)
DX: N20.1 Calculus of ureter (principal); E78.5 Hyperlipidemia, unspecified; G47.33 Obstructive sleep apnea (adult) (pediatric); E11.65 Type 2 diabetes mellitus with hyperglycemia; F17.210 Nicotine dependence, cigarettes, uncomplicated; Z79.82 Long term (current) use of aspirin; Z79.84 Long term (current) use of oral hypoglycemic drugs; E66.9 Obesity, unspecified; Z68.42 Body mass index [BMI] 45.0-49.9, adult; I10 Essential (primary) hypertension
CPT/HCPCS: 50590; 36415; 74018; 80048; 82948; 85610; 85730; 87086; 87088; C9803; J0690; J1100; J2405; J2704; J7120; U0003; U0005

== ENCOUNTER 2020-11-18 12:06 | Outpatient (CLI) | payer OTHER, SELFPAY ==
--- NOTE | ~2020-11-18 | XR_ITS ---
EXAMINATION: XR abdomen/kub 1V DATE: 11/18/2020 12:21 INDICATION: Right ureteral Steinstrasse TECHNIQUE: A supine view of the abdomen on 2 radiographs was obtained. COMPARISON: CT abdomen and pelvis 06/15/2020, abdomen radiographs 11/04/2020 FINDINGS: There are no dilated loops of bowel. There is a right internal ureteral stent in expected p osition. There are innumerable stones in right kidney. There are multiple stones in proximal right ur eter measuring up to 5 mm. IMPRESSION: 1. Stones in the right kidney and proximal right ureter with right internal ureteral stent in expecte d position. Reviewed, dictated and finalized at [facility]. IMPRESSION: 1. Stones in the right kidney and proximal right ureter with right internal ure teral stent in expected position.
== END 2020-11-18 12:07 | disposition home or self-care (01) ==
LOC: ANHIMG 12:11
PROVIDERS: PCP Internal Medicine; Visit Provider Urology
DX: N20.1 Calculus of ureter (principal); N20.0 Calculus of kidney; Z96.0 Presence of urogenital implants
CPT/HCPCS: 74018

== ENCOUNTER 2020-12-07 12:50 | Outpatient (CLI) | payer OTHER, SELFPAY ==
--- NOTE | ~2020-12-07 | XR_ITS ---
EXAMINATION: XR abdomen/kub 1V DATE: 12/07/2020 13:07 INDICATION: Ureteral calculus with right flank pain and hematuria post recent right-sided lithotripsy . TECHNIQUE: A supine view of the abdomen on 2 radiographs was obtained. COMPARISON: 11/18/2020 FINDINGS: Unchanged right internal ureteral stent with loops formed over the expected location of the right christian al pelvis and the bladder. Innumerable small round stone/stone fragments are seen clustered in dilate d calyces in the mid and inferior right kidney which appear to measure between 1 mm and 4 mm in maxim al diameter. There are a pair of 4-5 mm stones in the proximal left ureter and pair of 5 mm and 7 mm stones are also seen along side the catheter in the mid right ureter. No definitive left-sided urolit hiasis. Normal bowel gas pattern. Visualized lung bases are clear. There are bridging osteophytes at multiple levels in the spine, consistent with diffuse idiopathic skeletal hyperostosis (DISH). Severe lower lumbar facet osteoarthritis. IMPRESSION: 1. Right internal ureteral stent remains in expected position with no significant interval change in multiple stones in the proximal to mid right ureter and in dilated calyces in the mid to lower right kidney. Reviewed, dictated and finalized at [facility]. IMPRESSION: 1. Right internal ureteral stent remains in expected position with no significa nt interval change in multiple stones in the proximal to mid right ureter and i n dilated calyces in the mid to lower right kidney.
== END 2020-12-07 12:51 | disposition home or self-care (01) ==
LOC: ANHIMG 12:54
PROVIDERS: PCP Internal Medicine; Visit Provider Urology
DX: N20.1 Calculus of ureter (principal); M47.816 Spondylosis without myelopathy or radiculopathy, lumbar region
CPT/HCPCS: 74018

== ENCOUNTER 2020-12-29 10:26 | Outpatient (CLI) | payer OTHER, SELFPAY ==
[2020-12-29 10:52] LABS: Anion Gap 10 mmol/L (8-16); Blood Urea Nitrogen 19 mg/dL (9-20); Carbon Dioxide 26 mmol/L (22-30); Chloride 105 mmol/L (98-107); Estimated Glomerular Filt Rate > 60; Glucose 201 mg/dL (75-110); Potassium 4.2 mmol/L (3.4-5.0); Sodium 141 mmol/L (137-145)
== END 2020-12-29 10:27 | disposition home or self-care (01) ==
LOC: ANHSURGERY 10:29
PROVIDERS: Anesthesiology; PCP Internal Medicine; Visit Provider Urology
DX: Z01.812 Encounter for preprocedural laboratory examination (principal); E11.9 Type 2 diabetes mellitus without complications
CPT/HCPCS: 36415; 80048

== ENCOUNTER → 2021-01-02 00:29 | Outpatient (CLI) | payer OTHER, SELFPAY ==
[2021-01-04 13:25] LABS: SARS-CoV-2 RNA PCR Negative
== END ==
PROVIDERS: PCP Internal Medicine; Visit Provider Urology
DX: Z01.812 Encounter for preprocedural laboratory examination (principal); Z20.822 Contact with and (suspected) exposure to COVID-19
CPT/HCPCS: C9803; U0003; U0005

== ENCOUNTER 2021-01-05 00:57 | Day surgery (SDC) | payer OTHER, SELFPAY ==
[2020-12-22 14:05] VITALS: BMI 43.5
--- NOTE | 2021-01-02 16:13 | PM.HPGS ---
History of Present Illness History of Present Illness Consent: Risks, benefits, and alternatives have been discussed and questions answered. Patient agrees to proceed with procedure. Chief complaint: right ureteral stones Narrative: Adi Estrella Jr. is a 65 year old male who has undergone ESWL to a large right renal calculus on 2 occasions. He has residual stone fragments along the right ureter which have failed to pass despite a course of conservative management. He continues to have an indwelling right ureteral stent. Review of Systems Cardiovascular: Cardiovascular: Denies chest pain, Denies lightheadedness, Denies palpitations and Denies dyspnea Respiratory: Respiratory: Denies dyspnea Gastrointestinal: Gastrointestinal: Denies diarrhea, Denies nausea and Denies vomiting Genitourinary: Genitourinary: Denies hematuria and Denies dysuria Endocrine: Endocrine: Denies palpitations PMFSH Past Medical History Medical History Benign essential hypertension Hyperlipidemia LDL goal <100 Morbid obesity Obstructive sleep apnea CPAP Right ureteral stone Type 2 diabetes mellitus with hyperglycemia Family History Family History Sibling Diabetes mellitus Patient's sister is in good health Patient's brother is in good health Family history of cardiovascular disease Father Family history of cardiovascular disease, Onset Age: 80 Mother Family history of cardiovascular disease, Onset Age: 90 Other Cerebrovascular accident Family history of arthritis Family history of lung disease Hypertension Social History Social History Smoking packs per day: 0.5 Smoking cigarettes per day: 10.0 Years smoked: 50 Smoking pack-years: 25.00 Smoking status: Current every day smoker Tobacco type: cigarettes Second hand tobacco smoke exposure: Yes Additional smoking assessment comments: CURRENTLY SMOKES 3-5 CIGARETTES PER DAY Alcohol intake: never Substance use: never Substance use type: does not use Additional living arrangements comments: Gender identity (if verbalized by the patient): Male Spiritual care concerns: No Meds Home Medications and Allergies Home Medications Medication Instructions Recorded Confirmed Type blood sugar diagnostic #300 each 07/24/19 12/20/20 Rx aspirin 81 mg tablet,delayed 81 mg PO DAILY 07/27/19 12/22/20 History release glucosamine sulfate 500 mg tablet 1,000 mg PO HS tablet 07/27/19 12/22/20 History All Day Allergy (cetirizine) 10 mg PO DAILY 06/22/20 12/22/20 History Centrum Silver Men 1 tablet PO DAILY 06/22/20 12/22/20 History meloxicam 15 mg PO HS 06/22/20 12/22/20 History quinapril-hydrochlorothiazide 1 tablet PO DAILY 06/22/20 12/22/20 History metformin 500 mg tablet,extended 1,000 mg PO BID #360 tablet 10/03/20 12/22/20 Rx release 24 hr atorvastatin 10 mg tablet 10 mg PO QAM #90 tablet 10/18/20 12/22/20 Rx Allergies Allergy/AdvReac Type Severity Reaction Status Date / Time No Known Allergies Allergy Verified 12/22/20 13:48 Exam Const: General: no acute distress Resp: Effort & Inspection: normal respiratory effort GI: Inspection: non-distended GI Palp: No abdominal tenderness and No Guarding due to palpation present (GI) Auscultation: normal bowel sounds Assessment and Plan Assessment and plan (1) Right ureteral calculus: Code(s): N20.1 - Calculus of ureter Status: Acute Assessment and Plan: Cystoscopy, right ureteroscopy with stone extraction and possible stent replacement
--- NOTE | 2021-01-04 13:16 | WPDANESEPPF ---
Anes - Initial Pre Proc Eval Procedure: Operation Date: 01/05/21 13:15 Proposed Procedures p Cystoscopy, Right Ureteroscopy, - Timur Romo MD s Holmium Laser Lithotripsy with Right Stone Extraction - Timur Romo MD Date/Time: 01/04/21 13:16 Surgeon: Timur Romo MD Pre Op Diagnosis: right ureteral stones Patient Data Age: 65 Gender: M Height: 1.68 m Weight: 122.47 kg Allergies Allergy/AdvReac Type Severity Reaction Status Date / Time No Known Allergies Allergy Verified 12/22/20 13:48 Home Medications Medication Instructions Recorded Confirmed Type blood sugar diagnostic #300 each 07/24/19 12/20/20 Rx aspirin 81 mg tablet,delayed 81 mg PO DAILY 07/27/19 12/22/20 History release glucosamine sulfate 500 mg tablet 1,000 mg PO HS tablet 07/27/19 12/22/20 History All Day Allergy (cetirizine) 10 mg PO DAILY 06/22/20 12/22/20 History Centrum Silver Men 1 tablet PO DAILY 06/22/20 12/22/20 History meloxicam 15 mg PO HS 06/22/20 12/22/20 History quinapril-hydrochlorothiazide 1 tablet PO DAILY 06/22/20 12/22/20 History metformin 500 mg tablet,extended 1,000 mg PO BID #360 tablet 10/03/20 12/22/20 Rx release 24 hr atorvastatin 10 mg tablet 10 mg PO QAM #90 tablet 10/18/20 12/22/20 Rx Patient hx anesthesia problems: none Family hx anesthesia problems: none PMFSH Past Medical History Medical History Benign essential hypertension Hyperlipidemia LDL goal <100 Morbid obesity Obstructive sleep apnea CPAP Right ureteral stone Type 2 diabetes mellitus with hyperglycemia Family History Family History Sibling Diabetes mellitus Patient's sister is in good health Patient's brother is in good health Family history of cardiovascular disease Father Family history of cardiovascular disease, Onset Age: 80 Mother Family history of cardiovascular disease, Onset Age: 90 Other Cerebrovascular accident Family history of arthritis Family history of lung disease Hypertension Social History Social History Smoking packs per day: 0.5 Smoking cigarettes per day: 10.0 Years smoked: 50 Smoking pack-years: 25.00 Smoking status: Current every day smoker Tobacco type: cigarettes Second hand tobacco smoke exposure: Yes Additional smoking assessment comments: CURRENTLY SMOKES 3-5 CIGARETTES PER DAY Alcohol intake: never Substance use: never Substance use type: does not use Living arrangements: with family Additional living arrangements comments: Gender identity (if verbalized by the patient): Male Spiritual care concerns: No Anes - Eval Final PreProcedure Day of Procedure 01/04/21 13:16 Patient weight: morbidly obese Heart: regular rate and rhythm Lungs: clear to auscultation and normal air movement Airway: Mallampati scale class II Neurological: alert and oriented Last oral intake: >/= 8 hours ASA classification: III Emergent: no Anesthetic plan: proceed Anesthesia type and monitoring: general LMA Informed Consent: The patient's anesthetic plan and its attendant risks and benefits were discussed with the patient/family/POA. Questions were solicited and answers provided to the satisfaction of the patient/family/POA.
[2021-01-05] VITALS (7 sets, daily range): BP systolic 134–165; BP diastolic 69–94; PULSE 65–79; RESP 14–20; TEMP 35.9–36.2; O2SAT 94–100
--- NOTE | ~2021-01-05 | XR_ITS ---
EXAMINATION: XR retrograde pyelo w/stent RT DATE: 01/05/2021 13:42 INDICATION: Right internal ureteral stent placement. TECHNIQUE: Fluoroscopic images from a right internal ureteral stent placement are submitted for luis e watt 125 seconds of fluoroscopy time. FINDINGS: There is a right double-J internal ureteral stent projecting in expected position, with proximal [place] loop at the level of the renal pelvis and distal loop in the pelvis within the bladder lumen. IMPRESSION: 1. Right internal ureteral stent placement. Please refer to real-time procedural findings for russel ls. Reviewed, dictated and finalized at [facility]. IMPRESSION: 1. Right internal ureteral stent placement. Please refer to real-time procedu ral findings for details.
--- NOTE | 2021-01-05 06:24 | WPDHPUPDATE1 ---
History and Physical Update Update Date/Time: 01/05/21 06:24 History and Physical has been reviewed, including an updated exam of the patient. There are NO changes in the patient's condition. Risks, benefits, and alternatives have been discussed and questions answered. Patient agrees to proceed with procedure.
[2021-01-05] MEDS: LACTATED RINGERS 1,000 ML 30 ML IV CONT (12:04)
[2021-01-05 12:08] LABS: Glucose Point of Care 174 mg/dl (65-105)
[2021-01-05] MEDS: ceFAZolin 3 GM/D5W 100 ML 100 ML IVPB (12:39)
--- NOTE | 2021-01-05 13:39 | W.PM.PROC2 ---
Procedure Note - Detailed Date of Procedure 01/05/21 Pre-op Diagnosis Right ureteral stones Post-op Diagnosis same Procedure Performed Cystoscopy, right ureteral stent removal, right ureteroscopy with laser lithotripsy, right retrograde pyelogram, stone extraction and stent replacement Surgeon Timur Romo MD Anesthesia general Findings Retained right mid ureteral stone fragments Description of Procedure Patient brought to the op suite was prepped draped in routine sterile fashion while in dorsal lithotomy position after the uneventful induction of a general LMA anesthetic. Cystoscopy is undertaken with the 19 F rigid cystoscope. The tip of the indwelling stent was grasped and is brought to the external urethral meatus and removed with ease. 0.035 in glidewire was advanced in the right renal pelvis. Distal ureters dilated with an 8 F 10 F dilator and a 12 14 F ureteral access sheath was placed. A did distal ureteroscopy with the aid of a semi rigid ureteral scope. There were no notable fragments in the distal ureter. Replaced that with 7.5 F flexible ureteral scope. The couple mid ureteral fragments which were fraction use of holmium laser into multiple tiny pieces. A couple pieces were removed left in the rest washed either with irrigation or back into the renal pelvis and should pass easily with time. I performed a retrograde pyelogram to ensure that a 4.8 F ureteral stent was positioned with the proximal coil collecting system and distal coil in the bladder. Scopes were removed and the patient was taken recovery room good condition Estimated Blood Loss 0 Drains Yes (4.8F right ureteral stent) Packing No Pathology yes Complications No immediate complications Condition stable Disposition PACU
[2021-01-05 13:53] LABS: Glucose Point of Care 147 mg/dl (65-105)
== END 2021-01-05 15:04 | disposition home or self-care (01) ==
PROVIDERS: PCP Internal Medicine; Visit Provider Urology
PROC: (CPT 52352; principal; 2021-01-05 13:15)
PROC: (CPT 52356; 2021-01-05 13:15)
DX: N20.1 Calculus of ureter (principal); I10 Essential (primary) hypertension; E78.5 Hyperlipidemia, unspecified; G47.33 Obstructive sleep apnea (adult) (pediatric); E11.9 Type 2 diabetes mellitus without complications; E66.01 Morbid (severe) obesity due to excess calories; Z68.42 Body mass index [BMI] 45.0-49.9, adult; Z79.82 Long term (current) use of aspirin; Z79.84 Long term (current) use of oral hypoglycemic drugs; F17.210 Nicotine dependence, cigarettes, uncomplicated
CPT/HCPCS: 52356; 36415; 74420; 80048; 82365; 82948; 88300; A9270; C1769; C1887; C1894; C2617; C9803; J0690; J2250; J3010; J7120; U0003; U0005

== ENCOUNTER 2021-01-23 15:44 | Outpatient (CLI) | payer OTHER, SELFPAY ==
--- NOTE | ~2021-01-23 | XR_ITS ---
EXAMINATION: XR abdomen/kub 1V DATE: 01/23/2021 16:04 INDICATION: Calculus of ureter. TECHNIQUE: A supine view of the abdomen on 2 radiographs was obtained. COMPARISON: Abdomen radiographs 12/07/2020, CT abdomen and pelvis 06/15/2020 FINDINGS: There are no dilated loops of bowel. There is a right internal ureteral stent in expected p osition. There are greater than 10 stones in a cluster in proximal right ureter measuring up to at le ast 3 mm. There are greater than 20 stones in right kidney measuring up to at least 4 mm. IMPRESSION: 1. Stones in the right kidney and proximal right ureter with right internal ureteral stent in expecte d position. Reviewed, dictated and finalized at location [facility]. IMPRESSION: 1. Stones in the right kidney and proximal right ureter with right internal ure teral stent in expected position.
== END 2021-01-23 15:45 | disposition home or self-care (01) ==
LOC: ANHIMG 15:48
PROVIDERS: PCP Internal Medicine; Visit Provider Urology
DX: N20.2 Calculus of kidney with calculus of ureter (principal)
CPT/HCPCS: 74018

== ENCOUNTER 2021-02-07 00:28 | Observation (INO) | payer OTHER, SELFPAY ==
[2021-02-07] VITALS (13 sets, daily range): BP systolic 125–159; BP diastolic 66–95; PULSE 80–205; RESP 12–33; TEMP 36.6–37.4; O2SAT 94–98
--- NOTE | 2021-02-07 | ECHO_ITS ---
Patient Info Name: Adi Estrella Age: 65 years : 1955 Gender: Male Ht: 67 in Wt: 292 lbs BSA: 2.57 m2 HR: 84 bpm BP: 129 / 66 mmHg Heart Rhythm: Sinus Rhythm Exam Date: 02/07/2021 11:26 AM Exam Location: [facility] Pulmonary Patient Status: Inpatient Admit Date: 02/07/2021 Staff Ordering Physician: Agnes Newman MD Collar Separator: Td Santoyo RDCS, RT Attending Provider: Kenny Andrade MD Exam Type: CA echo dop color flow w con Study Info Indications I21.4 - Non-ST elevation (NSTEMI) myocardial infarction Complete two-dimensional, color flow and Doppler transthoracic echocardiogram is performed with contrast to opacify the left ventricle and to improve the deliniation of the left ventricle endocardial borders. Summary 1. Left ventricular chamber size, systolic function and diastolic function are normal with no regional wall motion abnormalities with an estimated ejection fraction of >70%. Moderate LVH is present. 2. Borderline pulmonary hypertension, estimated pulmonary arterial systolic pressure is 36 mmHg. 3. No significant valve disease. 4. Normal sinus rhythm. Left Ventricle Left ventricular chamber dimension is normal. Left ventricular systolic function is normal, estimated at >70%. There is moderately increased left ventricular wall thickness. Left ventricular septal wall motion is normal. The left ventricular diastolic function is normal. Left ventricular chamber size, systolic function and diastolic function are normal with no regional wall motion abnormalities with an estimated ejection fraction of >70%. Moderate LVH is present. Right Ventricle Right ventricular chamber dimension is normal. Right ventricular systolic function is normal. Left Atria Left atrial chamber dimension is normal. Right Atria Right atrial chamber dimension is normal. Aortic Valve The aortic valve is trileaflet. There is no aortic valve sclerosis. There is no aortic valve stenosis. There is no aortic valve regurgitation. Pulmonic Valve The pulmonic valve is normal. There is no pulmonic valve stenosis. There is no pulmonic regurgitation. Mitral Valve The mitral valve has normal leaflets. There is no mitral valve stenosis. There is no mitral valve regurgitation. Tricuspid Valve The tricuspid valve leaflets are normal. There is no significant tricuspid valve stenosis. There is trace tricuspid valve regurgitation. Borderline pulmonary hypertension, estimated pulmonary arterial systolic pressure is 36 mmHg. Pericardium/Pleural The pericardium appears normal. There is no pericardial effusion. Inferior Vena Cava Normal inferior vena cava with >50% collapse upon inspiration consistent with Empty right atrial pressure, 10 mmHg. Aorta The aortic root size at the sinus of Valsalva is normal. The prox ascending aorta size is normal. Left Ventricular Outflow Tract Name Value Normal LVOT 2D LVOT Diameter 2.06 cm LVOT Doppler LVOT Peak Gradient 3 mmHg LVOT Mean Gradient 2 mmHg LVOT VTI 15.86 cm
--- NOTE | ~2021-02-07 | XR_ITS ---
XR chest 2V 02/07/2021 01:44 Indication: SVT. Midsternal chest pain. Procedure: PA and lateral views of the chest Comparison: 04/01/2020 Findings: Heart size normal. No focal air space disease, pulmonary edema, pleural effusion or suspect ed pneumothorax. No acute osseous abnormality. Impression: 1: No acute cardiopulmonary disease. Reviewed, dictated and finalized at location A. Impression: 1: No acute cardiopulmonary disease.
--- NOTE | ~2021-02-07 | NM_ITS ---
EXAMINATION: NM brianne stress w perfusion DATE: 02/07/2021 16:53 INDICATION: Chest pain. Elevated troponins. TECHNIQUE: Rest images were obtained following intravenous administration of 9.735 mCi Tc99m tetrofos min (Myoview). The patient was infused intravenously with Lexiscan (Regadenoson). Then, 30.4 mCi Tc99 m tetrofosmin (Myoview) was administered intravenously, and stress images were obtained. Data was rec onstructed into short axis and horizontal and vertical long axis SPECT images. Gated SPECT images wer e also obtained. COMPARISON: None. FINDINGS: There is no definite reversible or fixed perfusion abnormality to suggest ischemia or infar ction. There is normal left ventricular chamber size, wall motion and ejection fraction. Left ventr icular ejection fraction measures >70%. IMPRESSION: 1. Normal myocardial perfusion at rest and during stress. 2. Left ventricular ejection fraction measuring >70%. Reviewed, dictated and finalized at location A.
--- NOTE | 2021-02-07 00:43 | ECG_ITS ---
Measurements Intervals [place] Rate: 198 P: [place]: 0 QRS: -52 QRSD: 120 T: 12 QT: 254 QTc: 462 Interpretive Statements WIDE COMPLEX TACHYCARDIA, PROBABLY SUPRAVENTRICULAR TACHYCARDIA RIGHT BUNDLE BRANCH BLOCK BASELINE ARTIFACT- II, V3-V6 ABNORMAL ECG Electronically Signed On 02-07-2021 6:35:13 CDT by Wai Bernal D.O.
--- NOTE | 2021-02-07 00:45 | ED.SOB ---
HPI - SOB/Dyspnea General Chief Complaint: Shortness of Breath/Dyspnea Stated Complaint: SOB Time Seen by Provider: 02/07/21 00:43 Source: patient Mode of arrival: ambulatory Limitations: no limitations History of Present Illness HPI Narrative: Patient is a 65-year-old male with history of hypertension, type 2 diabetes who presents for evaluation of shortness of breath. Patient states he has been feeling unwell over the past 36 hours, states that he felt slightly febrile with chills yesterday. Thought perhaps his blood sugar was low, but never ended up checking it. Today, he has had increasing shortness of breath this evening. He denies any palpitations. He does report chest tightness. He denies any nausea or vomiting. Patient denies any history of heart attack or heart problems. States he has been compliant with his medications. Patient states that he was outside mowing the grass today, states the chest tightness did begin after he was mowing, and did resolve when he came into rest. Of note, patient states this happened once previously, by the time they came to the emergency department, patient felt improved and was told his EKG was normal. Related Data Home Medications Medication Instructions Recorded Confirmed aspirin 81 mg tablet,delayed 81 mg PO DAILY 07/27/19 01/05/21 release glucosamine sulfate 500 mg tablet 1,000 mg PO HS tablet 07/27/19 01/05/21 All Day Allergy (cetirizine) 10 mg PO DAILY 06/22/20 01/05/21 Centrum Silver Men 1 tablet PO DAILY 06/22/20 01/05/21 meloxicam 15 mg PO HS 06/22/20 01/05/21 Allergies Allergy/AdvReac Type Severity Reaction Status Date / Time No Known Allergies Allergy Verified 01/05/21 12:08 [facility] Past Medical History Medical History Benign essential hypertension Hyperlipidemia LDL goal <100 Morbid obesity Obstructive sleep apnea CPAP Right ureteral stone Type 2 diabetes mellitus with hyperglycemia Family History Family History Sibling Diabetes mellitus Patient's sister is in good health Patient's brother is in good health Family history of cardiovascular disease Father Family history of cardiovascular disease, Onset Age: 80 Mother Family history of cardiovascular disease, Onset Age: 90 Other Cerebrovascular accident Family history of arthritis Family history of lung disease Hypertension Social History Social History Smoking packs per day: 0.5 Smoking cigarettes per day: 10.0 Years smoked: 50 Smoking pack-years: 25.00 Smoking status: Current every day smoker Tobacco type: cigarettes Second hand tobacco smoke exposure: Yes Additional smoking assessment comments: CURRENTLY SMOKES 3-5 CIGARETTES PER DAY Alcohol intake: never Alcohol use details: SOCIALLY YEARS AGO Substance use: never Substance use type: does not use Additional living arrangements comments: Gender identity (if verbalized by the patient): Male Spiritual care concerns: No Exam Narrative: Exam Narrative: GENERAL: Awake, alert, conversant HEAD: Normocephalic, atraumatic. EYES: PERRLA and EOMI. ENT: Nares clear, no rhinorrhea or epistaxis. Mucous membranes moist. NECK: Supple. CHEST: No respiratory distress, mild tachypnea, breathing is even, no wheezing or crackles HEART: Tachycardic rate ABDOMEN:Non distended, non tender EXTREMITIES: Normal range of motion. No edema. No calf tenderness bilaterally. SKIN: Warm, dry, no rash. NEURO:No focal deficits. Alert and oriented x3 Course Vital Signs Vital signs: Vital Signs Pulse Rate 205 H 02/07/21 00:31 Respiratory Rate 32 H 02/07/21 00:31 Blood Pressure 158/95 H 02/07/21 00:31 Pulse Oximetry 97 02/07/21 00:31 Temperature 36.6 C 02/07/21 01:31 Pulse Rate 103 H 02/07/21 01:03 Respirator
[2021-02-07 00:51] LABS: Glucose Point of Care 250 mg/dl (65-105)
[2021-02-07] MEDS: SODIUM CHLORIDE 0.9% IV 1,000 ML 999 ML IV CONT (00:51)
[2021-02-07 00:59] LABS: Basophils Absolute Auto 0.1 K/mm3 (0.0-0.1); Basophils Percent Auto 0.3 % (0.2-1.2); Eosinophils Percent Auto 0.2 % (0-4.4); Hemoglobin 13.2 g/dL (14.0-18.0); Immature Granulocyte Absolute 0.09 K/mm3 (0.00-0.031); Immature Granulocyte Percent A 0.5 % (0-0.5); Lymphocytes Absolute Auto 4.17 K/mm3 (0.9-3.2); Lymphocytes Percent Auto 21.4 % (18.3-44.2); Mean Corpuscular Hemoglobin 29.7 pg (26-34); Mean Corpuscular Volume 89.9 fl (80-100); Mean Platelet Volume 9.9 fl (7.4-10.4); Monocytes Percent Auto 10.3 % (2.6-8.5); Neutrophils Absolute Auto 13.1 K/mm3 (1.3-6.7); Neutrophils Percent Auto 67.3 % (45.5-73.1); Platelet Count Result 295 k/mm3 (150-375); Red Blood Count 4.45 M/mm3 (4.6-6.20); Red Cell Distribution Width 12.9 % (11.5-14.5); White Blood Count 19.5 K/mm3 (4.5-10.0)
--- NOTE | 2021-02-07 01:02 | PC.NURSE ---
gave pt. 6mg of adenosine per YIN Box.
[2021-02-07 01:09] LABS: Anion Gap 16 mmol/L (8-16); Blood Urea Nitrogen 27 mg/dL (9-20); Calcium 10.3 mg/dL (8.4-10.2); Carbon Dioxide 18 mmol/L (22-30); Chloride 103 mmol/L (98-107); Estimated Glomerular Filt Rate > 60; Glucose 262 mg/dL (65-110); Potassium 4.1 mmol/L (3.4-5.0); Sodium 137 mmol/L (137-145)
[2021-02-07 01:12] LABS: Prothrombin Time 12.7 Seconds (11.1-14.7)
[2021-02-07 01:13] LABS: Partial Thromboplastin Time 30.5 SECONDS (22.3-36.8)
[2021-02-07 01:34] LABS: NT Pro B Type Natriuretic Pept 739 pg/mL (5-100); Troponin I 0.084 ng/mL (0.000-0.034)
--- NOTE | 2021-02-07 03:17 | PM.IMHP ---
H&P: HPI History of Present Illness Date/Time: 02/07/21 03:17 Chief Complaint: CHEST PAIN Narrative: THIS IS A 65-YEAR-OLD MALE WITH PAST MEDICAL HISTORY SIGNIFICANT FOR HYPERTENSION ON TYPE 2 DIABETES MELLITUS DEGENERATIVE JOINT DISEASE. PATIENT PRESENTED TO THE EMERGENCY ROOM DUE TO CHEST PAIN HE WAS MOWING THE LAWN PRIOR TO THESE FELT INTENSE HEAT AND ONCE INSIDE THE HOUSE FELT CHEST PAIN HE THOUGHT THAT HE WAS GETTING BRONCHITIS DUE TO THE CHANGE OF HOT TO COLD. THE PAIN WENT AWAY AND HE DECIDED TO GO BACK OUTSIDE WHEN HE FELT PAIN AGAIN THEN DECIDED TO COME TO THE EMERGENCY ROOM UPON ARRIVAL TO THE EMERGENCY ROOM HE WAS FOUND TO HAVE A HEART RATE OF 198 HE RECEIVED AT LEXIE VELÁSQUEZ 6 MG WHICH BROKE THE RHYTHM AND HE WAS BACK TO [facility]. PATIENT STATES THAT HE HAD A SIMILAR EPISODE A FEW DAYS AGO BUT DID NOT THOUGHT MUCH OF IT. HE DENIES ANY KNOWN NAUSEA VOMITING DIARRHEA ABDOMINAL PAIN SYNCOPE OR NEAR SYNCOPE DIZZINESS LIGHTHEADEDNESS PND OR ORTHOPNEA NO LEG SWELLING NO CLAUDICATION NO COUGH NO SPUTUM PRODUCTION NO FEVERS NO RIGORS NO CHILLS. PRELIMINARY WORKUP IN EMERGENCY ROOM WAS ESSENTIALLY NONREVEALING. Review of Systems Review of Systems: Narrative: CHEST PAIN Constitutional: Constitutional: Denies chills, Denies fever(s), Denies malaise, Denies night sweats and Denies weakness Eyes: Eyes: Denies change in vision ENT: Denies dysphagia, Denies vertigo and Denies dizziness Cardiovascular: Cardiovascular: Reports chest pain, Denies syncope, Denies pedal edema, Denies irregular heart rhythm, Denies claudication, Denies lightheadedness, Denies radiating jaw, neck or arm pain, Denies palpitations, Denies dyspnea on exertion and Denies orthopnea Respiratory: Respiratory: Denies cough and Denies dyspnea Gastrointestinal: Gastrointestinal: Denies dyspepsia, Denies heartburn, Denies nausea and Denies vomiting Genitourinary: Genitourinary: Reports no additional male genitourinary complaints Musculoskeletal: Musculoskeletal: Reports no additional musculoskeletal complaints Integumentary/Breasts: Skin/Breast: Reports system reviewed and no additional complaints, except as docu Neurologic: Reports system reviewed and no additional complaints, except as documented Psychiatric: Psychiatric: Reports no additional psychiatric complaints Endocrine: Endocrine: Reports no additional endocrine complaints Hematologic/Lymphatic: Hematologic/Lymphatic: Reports no additional hematologic/lymphatic complaints Allergic/Immunologic: Allergic/Immunologic: Reports no additional allergic/immunologic complaints PMFSH Past Medical History Medical History Benign essential hypertension Hyperlipidemia LDL goal <100 Morbid obesity Obstructive sleep apnea CPAP Right ureteral stone Type 2 diabetes mellitus with hyperglycemia Family History Family History Sibling Diabetes mellitus Patient's sister is in good health Patient's brother is in good health Family history of cardiovascular disease Father Family history of cardiovascular disease, Onset Age: 80 Mother Family history of cardiovascular disease, Onset Age: 90 Other Cerebrovascular accident Family history of arthritis Family history of lung disease Hypertension Social History Social History Smoking packs per day: 0.5 Smoking cigarettes per day: 10.0 Years smoked: 50 Smoking pack-years: 25.00 Smoking status: Current every day smoker Tobacco type: cigarettes Second hand tobacco smoke exposure: Yes Additional smoking assessment comments: CURRENTLY SMOKES 3-5 CIGARETTES PER DAY Alcohol intake: never Alcohol use details: SOCIALLY YEARS AGO Substance use: never Substance use type: does not use Additional living arrangements comments: Gender identity (if roosevelt
--- NOTE | 2021-02-07 04:02 | PC.NURSE ---
notified pediatric doctor of pt in room
--- NOTE | 2021-02-07 04:31 | PC.NURSE ---
This patient, Adi Estrella Jr., was admitted to IMU Room 206-02 on 02/07/21 at 0430. Patient/family oriented to hospital policies and general routines including ID bracelet, bed and alarms, visiting hours, pain management, procedures, bathroom and other care routines, personal items, smoking policy, room service/diet, and visiting hours. Information on how to activate the Rapid Response Team has been discussed. Patient/Family are encouraged to report perceived risks to care and to ask questions if they do not understand what they are told or what they should do.
[2021-02-07 05:31] LABS: Troponin I 0.116 ng/mL (0.000-0.034)
[2021-02-07 08:08] LABS: Troponin I 0.142 ng/mL (0.000-0.034)
[2021-02-07 08:09] LABS: Glucose Point of Care 184 mg/dl (65-105)
--- NOTE | 2021-02-07 10:38 | ECG_ITS ---
Measurements Intervals [place] Rate: 105 P: 41 NM: 140 QRS: -28 QRSD: 88 T: -38 QT: 283 QTc: 375 Interpretive Statements SINUS TACHYCARDIA NONSPECIFIC ST & T-WAVE ABNORMALITY- LAT/HIGH LAT LEADS BASELINE ARTIFACT- II, III, AVR, AVF, V2-V6 ABNORMAL ECG Electronically Signed On 02-07-2021 10:45:44 CDT by Wai Bernal D.O.
[2021-02-07] MEDS: PERFLUTREN LIPID MICROSPHERES 1.5 ML VIAL DILUTED TO 10 ML TOTAL VOLUME IV PUSH (12:14)
[2021-02-07 12:38] LABS: Glucose Point of Care 145 mg/dl (65-105)
[2021-02-07] MEDS: ENOXAPARIN 100 MG/ML SYRINGE SUB-Q (12:44)
[2021-02-07] MEDS: ATORVASTATIN 10 MG TABLET PO (12:45)
[2021-02-07] MEDS: hydroCHLOROthiazide 12.5 MG CAPSULE PO (12:45)
[2021-02-07] MEDS: ENOXAPARIN 30 MG/0.3 ML SYRINGE SUB-Q (12:45)
[2021-02-07] MEDS: lisinopriL 20 MG TABLET PO (12:45)
--- NOTE | 2021-02-07 13:11 | PM.CNCAR ---
Assessment and Plan Assessment and plan (1) SVT (supraventricular tachycardia): Code(s): I47.1 - Supraventricular tachycardia Status: Acute Assessment and Plan: Patient admitted with very rapid SVT Which responded promptly to Adenocard. Surprisingly did not feel any palpitations. Unusual that patient should have new onset of SVT this late in life but possible. Might have had 1 episode in March 2020 which resolved by the time he came to the ER. It is unclear when the SVT started; whether the entire episode of chest tightness etc. was from SVT or whether the SVT occurred later in the course of the day. Discussed treatment of SVT with medication (beta-isaac, Cardizem or verapamil) versus ablation. For now I think we can discharge him with low-dose beta-isaac (metoprolol succ 25 mg qd) and if his echo and adenosine stress test are okay, for outpatient follow-up. If significant reversible ischemia, then consider heart cath. (2) Type 2 NV (myocardial infarction): Code(s): I21.A1 - Myocardial infarction type 2 Status: Acute Assessment and Plan: Probable type 2 NV secondary to SVT. However he has multiple risk factors for CAD and is possible he may have had myocardial ischemia provoking the chest tightness, and SVT. Discussed with patient, I have ordered a Lexiscan for today. (3) Type 2 diabetes mellitus: Qualifiers: Diabetes mellitus fdc insulin use: without fdc use Diabetes mellitus complication status: without complication Qualified Code(s): E11.9 - Type 2 diabetes mellitus without complications Code(s): E11.9 - Type 2 diabetes mellitus without complications Status: Acute Assessment and Plan: Treatment per hospitalist (4) Benign essential hypertension: Code(s): I10 - Essential (primary) hypertension Status: Acute Assessment and Plan: controlled (5) Tobacco use: Code(s): Z72.0 - Tobacco use Status: Acute Assessment and Plan: Encouraged to quit smoking completely. History of Present Illness History of Present Illness Consult date/time: 02/07/21 13:11 Requesting physician: Kenny Andrade MD Consult reason: Other (Arrhythmia) Reason For Visit: SVT Narrative: Adi Estrella Is a 65-year-old male whom I was asked to see at the request of the hospitalist for my advice and opinion regarding his arrhythmia, in consultation Pt was in his normal state of health yesterday morning. Around 10:00 a.m. he went outside to cut his grass with a riding mower. He worked about 3 hours but felt overheated. He came in and undress for continued to feel hot, and then developed tightness in his chest. The tightness persisted. Around 7:00 p.m. he went outside to put away his lawn care equipment and felt bad, with ongoing tightness and sweats. It felt like he had a bronchial problems so he tried some cough drops and decongestants as well as Sprite and Tylenol. He felt a little lightheaded and his breathing did not feel right. He never felt any palpitations at all. He went to bed but could not sleep so asked his to take him to the emergency room. In the ER he was in SVT rate 198, he was given Adenocard and converted to sinus rhythm. His troponins have been rising, now up to 0.14. No history of thyroid disease, excessive caffeine or alcohol use. Patient came to the emergency room in March 2020 for palpitations at that time he was in sinus rhythm with heart rate in the 90s. however that felt different, with no tightness, and he could feel fast heartbeats. He has been able to cut his grass this and summer with no trouble with chest tightness before. No history of heart disease but does have hypertension, hyperlipidemia and diabetes. Family history of some heart
--- NOTE | 2021-02-07 13:50 | EST_ITS ---
Patient Info Name: Adi Estrella Age: 65 years : 1955 Gender: Male Ht: 67 in Wt: 285 lbs BSA: 2.54 m2 HR: 82 bpm BP: 115 / 67 mmHg Heart Rhythm: Sinus Rhythm Exam Date: 02/07/2021 3:58 PM Exam Location: [facility] Stress Patient Status: Inpatient Admit Date: 02/07/2021 Staff Ordering Physician: Ashley Roman MD Attending Provider: Kenny Andrade MD Exercise Technologist: My Wolfe CT Exercise Physician: Ashley Roman MD Exam Type: CA stress brianne w NM Study Info A regadenoson stress test was performed. Summary 1. No abnormal ST-T wave changes with lexiscan. 2. Nuclear test results to follow. Protocol: Lexiscan Stress ECG Details Stage: REST Duration (min): 1 min : 26 sec HR (bpm): 82 SBP (mmHg): 115 DBP (mmHg): 67 Stage: REST Duration (min): 6 min : 48 sec HR (bpm): 82 SBP (mmHg): 115 DBP (mmHg): 67 Stage: STAGE 1 Duration (min): 1 min : 0 sec HR (bpm): 95 SBP (mmHg): 114 DBP (mmHg): 57 Stage: RECOVERY Duration (min): 1 min : 0 sec HR (bpm): 94 SBP (mmHg): 114 DBP (mmHg): 57 Stage: RECOVERY Duration (min): 2 min : 0 sec HR (bpm): 94 SBP (mmHg): 114 DBP (mmHg): 57 Stage: RECOVERY Duration (min): 3 min : 0 sec HR (bpm): 92 SBP (mmHg): 147 DBP (mmHg): 66 Stage: RECOVERY Duration (min): 3 min : 10 sec HR (bpm): 91 SBP (mmHg): 147 DBP (mmHg): 66 Rest HR: 82 bpm Peak HR: 96 bpm Rest Sys BP: 115 mmHg Peak Sys BP: 147 mmHg Max Pred HR: 153 bpm % Max Pred HR: 63 % Target HR: 130 bpm Max RPP: 14,112 bpm*mmHg BP Response: Normal blood pressure response Termination Reason: Completed protocol Cardiac Symptoms: None Total Time: 1 min : 0 sec Rest Moser BP: 67 mmHg Peak Moser BP: 66 mmHg Total Dose: 0.4 mg Resting ECG Normal sinus rhythm low voltage. Stress ECG No abnormal ST/T wave changes with exercise. Arrhythmias None. Report Signatures
[2021-02-07 17:14] LABS: Glucose Point of Care 177 mg/dl (65-105)
--- NOTE | 2021-02-07 18:16 | PM.DS ---
DS: Admitting Diagnosis Admitting Diagnosis SVT NSTEMI Chest pain HTN DM DS: Discharge Diagnosis Discharge Diagnosis (1) SVT (supraventricular tachycardia): Code(s): I47.1 - Supraventricular tachycardia Status: Acute Assessment and Plan: Responded well to adenosine. No further recurrence. Remained on telemetry Seen by cardiology who recommended to start low dose metoprolol 25mg QD Stress test was negative for any reversible ischemia ECHO done with pending read from cardiology (2) Elevated troponin: Code(s): R77.8 - Other specified abnormalities of plasma proteins Status: Acute Assessment and Plan: troponin plateued He was started on ASA and lovenox. Processing Associate has recommended stress test which was negative for reversible ischemia. EF 75% ECHO was done which is pending read from cardiogist. (3) Leukocytosis: Code(s): D72.829 - Elevated white blood cell count, unspecified Status: Acute Assessment and Plan: NO SIGNS OR SYMPTOMS OF INFECTION LIKELY TO BE REACTIVE CXR negative for any PNA UA, urine and blood cultures sent tonsil hospital is in lab Temp max was 99.4. Hx of ureteric stent with chronic urgency. No dysuria He was asked to stay for 24 hours for observation but he wanted to go home today. He was encouraged to come to ED/Call PCP if he has any fever or other symptoms. (4) Obstructive sleep apnea: Code(s): G47.33 - Obstructive sleep apnea (adult) (pediatric) Status: Acute Assessment and Plan: CONTINUE CPAP (5) Type 2 diabetes mellitus: Qualifiers: Diabetes mellitus mcfp insulin use: without rn long term care use Diabetes mellitus complication status: without complication Qualified Code(s): E11.9 - Type 2 diabetes mellitus without complications Code(s): E11.9 - Type 2 diabetes mellitus without complications Status: Acute Assessment and Plan: INSULIN SLIDING SCALE NEEDED He will continue metformin at the time of discharge. CARB CONSISTENT DIET DS: Summary Hospital Course Reason for hospitalization: Chest pain Hospital Course: as above Time Spent with Patient Time attestation: Total time spent providing and/or coordinating discharge services: Exam Narrative: Exam Narrative: General awake and alert not in acute distress Eyes PERRLA normal conjunctiva no discharge HEENT no discharge Neck supple dull tenderness no deformity JVD not elevated CVS S1-S2 no murmur Respiratory no wheezes or crepitation respiration nonlabored GI soft nontender nondistended no hepatosplenomegaly Chest wall no tenderness or deformity Back nontender no deformity [employer] alert oriented x3 and grossly nonfocal neurological exam Psychiatric cooperative appropriate mood and affect Musculoskeletal normal range of motion or joint swelling no rashes Extremities no edema DS: Data Data Completed and Pending Labs on day of discharge: Labs from last 24 hours 02/07/21 02/07/21 02/07/21 18:07 17:10 12:27 WBC RBC Hgb Hct MCV MCH MCHC RDW Plt Count MPV Immature Gran % (Auto) Neut % (Auto) Lymph % (Auto) [place] % (Auto) Eos % (Auto) Baso % (Auto) Lymph # (Auto) [place] # (Auto) Eos # (Auto) Baso # (Auto) Abs Immat Gran (auto) Absolute Neuts (auto) Absolute Nucleated RBC Nucleated RBC % PT INR APTT Sodium Potassium Chloride Carbon Dioxide Anion Gap BUN Creatinine Estim Creat Clear Calc Estimated GFR Glucose POC Capillary Glucose 177 H 145 H Calcium Troponin I NT-Pro-B Natriuret Pep TSH Urine Color Pending Urine Appearance Pending Urine pH Pending Ur Specific [place] Pending Urine Protein Pending Urine Glucose (UA) Pending Urine Ketones Pending Ur Blood (Man) Pending Urine Nitrate Pending Urine Bilirubin Pending Urine U
[2021-02-07 18:31] LABS: Add Urine Microscopic? YES; Appearance Urine Cloudy (Clear); Bilirubin Urine Negative (Negative); Blood Urine 3+ (Negative); Glucose Urine UA 1+ mg/dL (Negative); Ketones Urine Negative (Negative); Leukocyte Esterase Ur 2+ LEU/UL (Negative); Mucus Urine Rare /lpf; Nitrate Urine Negative (Negative); Protein Urine 2+ mg/dL (Negative); RBC Urine >75 /hpf (0-2); Specific Grav Ur 1.024 (1.001-1.035); Squamous Epithelial Cell Urine Rare /hpf (Few); Urobilinogen Urine Negative mg/dL (<2.0); WBC Urine 51-75 /hpf
[2021-02-07 18:32] LABS: Color Urine Light Orange (Yellow)
== END 2021-02-07 19:30 | disposition home or self-care (01) ==
LOC: ANHED 02:10 → ANHIMU 04:29
PROVIDERS: Admitting Provider Internal Medicine; Emergency Provider Emergency Medicine; PCP Internal Medicine; Visit Provider Internal Medicine Critical Care Medicine
DX: I47.1 Supraventricular tachycardia (principal); R77.8 Other specified abnormalities of plasma proteins; D72.829 Elevated white blood cell count, unspecified; G47.33 Obstructive sleep apnea (adult) (pediatric); I10 Essential (primary) hypertension; E11.65 Type 2 diabetes mellitus with hyperglycemia; E78.5 Hyperlipidemia, unspecified; F17.210 Nicotine dependence, cigarettes, uncomplicated; R06.02 Shortness of breath; Z79.84 Long term (current) use of oral hypoglycemic drugs
CPT/HCPCS: 36415; 71046; 78452; 80048; 81001; 82948; 83880; 84443; 84484; 85025; 85610; 85730; 87040; 87086; 93005; 93017; 93306; 96361; 96372; 96374; 99285; A9270; A9502; C8929; G0378; J0153; J1650; J2785; J7030; Q9957

== ENCOUNTER 2021-04-05 12:25 | Outpatient (CLI) | payer OTHER, SELFPAY ==
--- NOTE | ~2021-04-05 | XR_ITS ---
EXAMINATION: XR abdomen/kub 1V DATE: 04/05/2021 12:41 INDICATION: Ureteral calculus TECHNIQUE: A supine view of the abdomen on 2 radiographs was obtained. COMPARISON: 01/23/2021 FINDINGS: Right internal ureteral stent which remains in expected position with loops formed at the right renal pelvis and at the bladder. No significant change in a stippled appearing cluster of what appear to b e numerous 2-3 mm stones/stone fragments in an approximately 3 x 1.3 cm collection along the proximal right ureter and approximately 3 cm collections in a couple dilated calyces at the lower pole of the right kidney. No evident left-sided nephrolithiasis. No dilated bowel to suggest obstruction.. IMPRESSION: 1. Persistent collections of multiple small stone/stone fragments in the right kidney and proximal ri ght ureter alongside a right internal ureteral stent which remains in expected position. Reviewed, dictated and finalized at location A. IMPRESSION: 1. Persistent collections of multiple small stone/stone fragments in the right kidney and proximal right ureter alongside a right internal ureteral stent whic h remains in expected position.
== END 2021-04-05 12:26 | disposition home or self-care (01) ==
LOC: ANHIMG 12:27
PROVIDERS: PCP Internal Medicine; Visit Provider Urology
DX: N20.1 Calculus of ureter (principal)
CPT/HCPCS: 74018

== ENCOUNTER 2021-04-19 14:17 | Outpatient (CLI) | payer OTHER, SELFPAY ==
[2021-04-19 14:54] LABS: Anion Gap 10 mmol/L (8-16); Blood Urea Nitrogen 18 mg/dL (9-20); Calcium 10.2 mg/dL (8.4-10.2); Carbon Dioxide 29 mmol/L (22-30); Chloride 101 mmol/L (98-107); Estimated Glomerular Filt Rate > 60; Glucose 202 mg/dL (65-110); Potassium 4.2 mmol/L (3.4-5.0); Sodium 140 mmol/L (137-145)
[2021-04-19 14:58] LABS: Prothrombin Time 12.6 Seconds (11.1-14.7)
[2021-04-19 14:59] LABS: Partial Thromboplastin Time 29.7 SECONDS (22.3-36.8)
== END 2021-04-19 14:18 | disposition home or self-care (01) ==
LOC: ANHSURGERY 14:22
PROVIDERS: Anesthesiology; PCP Internal Medicine; Visit Provider Urology
DX: Z01.818 Encounter for other preprocedural examination (principal); N20.1 Calculus of ureter; I10 Essential (primary) hypertension
CPT/HCPCS: 36415; 80048; 85610; 85730; 87086

== ENCOUNTER 2021-04-28 00:33 | Day surgery (SDC) | payer OTHER, SELFPAY ==
[2021-04-17 11:22] VITALS: BMI 45.6
--- NOTE | 2021-04-24 08:49 | PM.HPGS ---
History of Present Illness History of Present Illness Consent: Risks, benefits, and alternatives have been discussed and questions answered. Patient agrees to proceed with procedure. Chief complaint: right ureteral kidney stone Narrative: Adi Estrella Jr. is a 65 year old male, known recurrent stone former and required multiple prior ESWL in the past. Following recent ESWL for large stones in his right kidney a follow-up KUB shows multiple persistent fragments. After discussion of therapeutic options he elects for 2nd ESWL. Is aware the risk of this procedure as outlined previously, including perinephric hematoma persistent stone fragments. [facility] Past Medical History Medical History Benign essential hypertension Hyperlipidemia LDL goal <100 Morbid obesity Obstructive sleep apnea CPAP Right ureteral stone Tobacco use Type 2 diabetes mellitus with hyperglycemia Family History Family History Sibling Family history of cardiovascular disease Diabetes mellitus Patient's brother is in good health 1 brother has a pacemaker Patient's sister is in good health Father Family history of cardiovascular disease, Onset Age: 80 Family history of lung disease Hypertension History of stroke Mother Family history of cardiovascular disease, Onset Age: 90 Heart disease unsure of type of heart disease Social History Social History Smoking packs per day: 0.5 Smoking cigarettes per day: 10.0 Years smoked: 45 Smoking pack-years: 22.50 Smoking status: Current every day smoker Tobacco type: cigarettes Second hand tobacco smoke exposure: Yes Additional smoking assessment comments: CURRENTLY SMOKES 3-5 CIGARETTES PER DAY Alcohol intake: former Alcohol use details: SOCIALLY YEARS AGO Substance use: never Substance use type: does not use Additional living arrangements comments: Gender identity (if verbalized by the patient): Male Sexual Orientation (if Verbalized by the Patient): Straight or Heterosexual Spiritual care concerns: No Meds Home Medications and Allergies Home Medications Medication Instructions Recorded Confirmed Type blood sugar diagnostic #300 each 07/24/19 04/05/21 Rx aspirin 81 mg tablet,delayed 81 mg PO DAILY 07/27/19 04/17/21 History release All Day Allergy (cetirizine) 10 mg PO HS 06/22/20 04/17/21 History Centrum Silver Men 1 tablet PO DAILY 06/22/20 04/17/21 History meloxicam 15 mg PO QAM 06/22/20 04/17/21 History quinapril 20 1 tablet PO DAILY #90 tablet 02/06/21 04/17/21 Rx mg-hydrochlorothiazide 12.5 mg tablet Glucosamine Chondroitin 2 cap PO DAILY 02/07/21 04/17/21 History metoprolol succinate [Toprol XL] 25 mg PO QAM 30 Days #30 tablet 02/07/21 04/17/21 Rx metformin 500 mg tablet,extended See Rx Instructions .ROUTE 03/28/21 04/17/21 Rx release 24 hr .COMPLEX #360 tablet atorvastatin 10 mg tablet See Rx Instructions .ROUTE 04/07/21 04/17/21 Rx .COMPLEX #90 tablet Allergies Allergy/AdvReac Type Severity Reaction Status Date / Time No Known Allergies Allergy Verified 04/17/21 11:00 Exam Const: General: no acute distress Resp: Effort & Inspection: normal respiratory effort GI: Inspection: non-distended GI Palp: No abdominal tenderness and No Guarding due to palpation present (GI) Auscultation: normal bowel sounds Assessment and Plan Assessment and plan (1) Bilateral renal stones: Code(s): N20.0 - Calculus of kidney Status: Acute Assessment and Plan: Right ESWL
[2021-04-28] VITALS (9 sets, daily range): BP systolic 104–139; BP diastolic 65–82; PULSE 65–82; RESP 14–18; TEMP 36.4; O2SAT 94–98
--- NOTE | ~2021-04-28 | XR_ITS ---
XR abdomen/kub 1V DATE: 04/28/2021 06:05 INDICATION: Lithotripsy TECHNIQUE: 2 AP views COMPARISON: 04/05/2021 KUB FINDINGS: Right internal urinary stent is unchanged in position with proximal pigtail overlying the r ight renal pelvis, distal pigtail overlying the mid aspect of the urinary bladder. Again noted are innumerable small calcified stone fragments of the calyces of the lower pole the righ t kidney and Steinstrasse along the proximal right ureter. No apparent left urinary tract calcified calculi. The psoas shadows are intact. No visceromegaly is detected. No evidence of bowel obstruction. Diffuse idiopathic skeletal hyperostosis of the thoracic spine. IMPRESSION: Innumerable small stone fragments of the calyces of the lower pole the right kidney and p roximal right ureteral Stein[address] Right internal urinary stent Reviewed, dictated and finalized at [facility]. Reviewed, dictated and finalized at location [facility]. IMPRESSION: Innumerable small stone fragments of the calyces of the lower pole the right kidney and proximal right ureteral Stein[address] Right internal urinary stent
[2021-04-28] MEDS: LACTATED RINGERS 1,000 ML 30 ML IV CONT (06:30)
[2021-04-28 06:37] LABS: Glucose Point of Care 135 mg/dl (65-105)
--- NOTE | 2021-04-28 06:52 | WPDHPUPDATE1 ---
History and Physical Update Update Date/Time: 04/28/21 06:52 History and Physical has been reviewed, including an updated exam of the patient. There are NO changes in the patient's condition. Risks, benefits, and alternatives have been discussed and questions answered. Patient agrees to proceed with procedure.
--- NOTE | 2021-04-28 06:59 | WPDANESEPPF ---
Anes - Initial Pre Proc Eval Procedure: Operation Date: 04/28/21 07:30 Proposed Procedures p Right Ureteral Extracorporeal Shock Wave Lithotripsy - Timur Romo MD Date/Time: 04/28/21 06:59 Surgeon: Timur Romo MD Pre Op Diagnosis: right ureteral kidney stone Patient Data Age: 65 Gender: M Height: 1.7 m Weight: 129 kg Last Vital Signs Temp 36.4 C 04/28/21 06:22 Pulse 82 04/28/21 06:22 Resp 18 04/28/21 06:22 BP 133/82 04/28/21 06:22 Pulse Ox 97 04/28/21 06:22 Allergies Allergy/AdvReac Type Severity Reaction Status Date / Time No Known Allergies Allergy Verified 04/28/21 06:11 Home Medications Medication Instructions Recorded Confirmed Type blood sugar diagnostic #300 each 07/24/19 04/05/21 Rx aspirin 81 mg tablet,delayed 81 mg PO DAILY 07/27/19 04/28/21 History release All Day Allergy (cetirizine) 10 mg PO HS 06/22/20 04/28/21 History Centrum Silver Men 1 tablet PO DAILY 06/22/20 04/28/21 History meloxicam 15 mg PO QAM 06/22/20 04/28/21 History quinapril 20 1 tablet PO DAILY #90 tablet 02/06/21 04/28/21 Rx mg-hydrochlorothiazide 12.5 mg tablet Glucosamine Chondroitin 2 cap PO DAILY 02/07/21 04/28/21 History metoprolol succinate [Toprol XL] 25 mg PO QAM 30 Days #30 tablet 02/07/21 04/28/21 Rx metformin 500 mg tablet,extended See Rx Instructions .ROUTE 03/28/21 04/28/21 Rx release 24 hr .COMPLEX #360 tablet atorvastatin 10 mg tablet See Rx Instructions .ROUTE 04/07/21 04/28/21 Rx .COMPLEX #90 tablet Laboratory Tests 04/28/21 06:27 POC Capillary Glucose 135 mg/dl H mg/dl (65-105) Patient hx anesthesia problems: none Family hx anesthesia problems: none Results Review: All pre-operative results and documents have been reviewed as part of the pre-operative evaluation. [facility] Past Medical History Medical History Benign essential hypertension Hyperlipidemia LDL goal <100 Morbid obesity Obstructive sleep apnea CPAP Right ureteral stone Tobacco use Type 2 diabetes mellitus with hyperglycemia Family History Family History Sibling Patient's sister is in good health Patient's brother is in good health Father Family history of cardiovascular disease, Onset Age: 80 Family history of lung disease Hypertension History of stroke Carcinoma of colon Mother Family history of cardiovascular disease, Onset Age: 90 Heart disease unsure of type of heart disease Social History Social History Smoking packs per day: 0.5 Smoking cigarettes per day: 10.0 Years smoked: 50 Smoking pack-years: 25.00 Smoking status: Current every day smoker Tobacco type: cigarettes Second hand tobacco smoke exposure: Yes Additional smoking assessment comments: CURRENTLY SMOKES 3-5 CIGARETTES PER DAY Alcohol intake: former Alcohol use details: SOCIALLY YEARS AGO Substance use: never Substance use type: does not use Living arrangements: with family Additional living arrangements comments: Gender identity (if verbalized by the patient): Male Sexual Orientation (if Verbalized by the Patient): Straight or Heterosexual Spiritual care concerns: No Anes - Eval Final PreProcedure Day of Procedure 04/28/21 06:59 Patient weight: morbidly obese Heart: regular rate and rhythm Lungs: decreased breath sounds Airway: Mallampati scale class III Neurological: alert and oriented Last oral intake: >/= 8 hours ASA classification: III Emergent: no Anesthetic plan: proceed Anesthesia type and monitoring: general LMA and standard monitoring Results Review: All pre-operative results and documents have been reviewed as part of the pre-operative evaluation. Informed Consent: The patient's anesthetic plan and its attendant risks and
[2021-04-28] MEDS: ceFAZolin 3 GM/D5W 100 ML 100 ML IVPB (07:27)
--- NOTE | 2021-04-28 07:58 | W.PM.PROC2 ---
Procedure Note - Detailed Date of Procedure 04/28/21 Pre-op Diagnosis Right ureteral and kidney stones Post-op Diagnosis same Procedure Performed Right ESWL Surgeon Timur Romo MD Anesthesia general Description of Procedure The patient was brought to the operative suite where he was placed in the supine position on the Dornier lithotripsy table. The focal point of the lithotripter was placed first at a couple stone fragments in his proximal right ureter where 500 shocks were delivered at a power setting of 5. The additional 2000 shocks were delivered at residual stone fragments in his right lower pole at a power setting of 4. There appeared to be good fragmentation of the stone. The patient tolerated the procedure well and was taken to the recovery room in good condition. Estimated Blood Loss 0 Drains No Packing No Pathology none sent Complications No immediate complications Condition stable Disposition PACU
[2021-04-28 08:17] LABS: Glucose Point of Care 141 mg/dl (65-105)
== END 2021-04-28 09:54 | disposition home or self-care (01) ==
PROVIDERS: PCP Internal Medicine; Visit Provider Urology
PROC: (CPT 50590; principal; 2021-04-28 07:30)
DX: N20.2 Calculus of kidney with calculus of ureter (principal); Z79.82 Long term (current) use of aspirin; Z79.84 Long term (current) use of oral hypoglycemic drugs; I10 Essential (primary) hypertension; G47.33 Obstructive sleep apnea (adult) (pediatric); E78.5 Hyperlipidemia, unspecified; E11.65 Type 2 diabetes mellitus with hyperglycemia; F17.210 Nicotine dependence, cigarettes, uncomplicated; E66.01 Morbid (severe) obesity due to excess calories; Z68.41 Body mass index [BMI] 40.0-44.9, adult
CPT/HCPCS: 50590; 36415; 74018; 80048; 82948; 85610; 85730; 87086; J0690; J1100; J2250; J2405; J2704; J3010; J7120

== ENCOUNTER 2021-05-09 10:41 | Outpatient (CLI) | payer OTHER, SELFPAY ==
--- NOTE | ~2021-05-09 | XR_ITS ---
EXAMINATION: XR abdomen/kub 1V EXAM DATE: 05/09/2021 11:02 INDICATION: N20.1 - Calculus of ureter Right /Hx Of Lithotripsy . TECHNIQUE: Frontal projection of the upper abdomen, frontal projection lower abdomen/pelvis for inter pretation. Comparison is made to prior examination from 04/28/2021. FINDINGS: There is a right-sided double-J ureteral stent in expected position. Multiple stone fragme nts in the right ureteropelvic junction and right calyces. Given distribution to the stone fragments, hydronephrosis is suspected. Nonobstructive bowel gas pattern. IMPRESSION: 1. Large amount of right renal pelvic, calyceal stones, hydronephrosis. 2. Stent in position. Reviewed, dictated and finalized at location [facility].
== END 2021-05-09 10:42 | disposition home or self-care (01) ==
LOC: ANHIMG 10:44
PROVIDERS: PCP Internal Medicine; Visit Provider Urology
DX: N20.1 Calculus of ureter (principal); N13.30 Unspecified hydronephrosis
CPT/HCPCS: 74018

== ENCOUNTER 2021-05-22 14:13 | Outpatient (CLI) | payer OTHER, SELFPAY ==
--- NOTE | ~2021-05-22 | XR_ITS ---
EXAMINATION: XR abdomen/kub 1V DATE: 05/22/2021 14:30 INDICATION: Calculus of kidney. TECHNIQUE: A supine view of the abdomen on 2 radiographs was obtained. COMPARISON: Abdomen radiographs 05/09/2021, CT abdomen and pelvis 06/15/2020 FINDINGS: There are no dilated loops of bowel. There is a right internal ureteral stent in expected p osition. There are numerable stones in the right kidney and right renal pelvis measuring up to approx imately 4 mm. IMPRESSION: 1. Stones in the right kidney and right renal pelvis with right internal ureteral stent in expected p osition. Reviewed, dictated and finalized at location [facility]. [employer] IMPRESSION: 1. Stones in the right kidney and right renal pelvis with right internal ureter al stent in expected position.
== END 2021-05-22 14:14 | disposition home or self-care (01) ==
LOC: ANHIMG 14:14
PROVIDERS: PCP Internal Medicine; Visit Provider Urology
DX: N20.0 Calculus of kidney (principal); Z96.0 Presence of urogenital implants
CPT/HCPCS: 74018

== ENCOUNTER 2021-05-26 10:24 | Outpatient (CLI) | payer OTHER, SELFPAY ==
[2021-05-26 11:15] LABS: INR 0.9; Prothrombin Time 12.1 Seconds (11.1-14.7)
== END 2021-05-26 10:25 | disposition home or self-care (01) ==
LOC: ANHSURGERY 10:28
PROVIDERS: PCP Internal Medicine; Visit Provider Urology
DX: Z01.812 Encounter for preprocedural laboratory examination (principal); N20.1 Calculus of ureter; Z51.81 Encounter for therapeutic drug level monitoring; Z79.899 Other long term (current) drug therapy
CPT/HCPCS: 36415; 85610; 85730; 87086

== ENCOUNTER 2021-06-02 01:58 | Day surgery (SDC) | payer OTHER, SELFPAY ==
[2021-05-25 13:10] VITALS: BMI 47.0
--- NOTE | 2021-05-25 13:14 | PC.NURSE ---
Report to the Outpatient Waiting Room, entrance under the green pavilion located off [facility], at time _0800 on date06/02/21 . OR Time: _1000 . - You and your visitor will be asked a series of questions to screen for COVID 19 for your protection. - A mask is required within the hospital. - Only one visitor is allowed at this time. Patient visitors will be guided where to wait when not with patient. Preoperative COVID Testing Requirements: No COVID Test needed if: (proof is required; if not received patient will have Rapid Test prior to entry) - Patient has received COVID Vaccine at least 14 days prior to procedure date or - Patient has positive COVID test result within last 90 days of surgery date. COVID Test needed if above criteria is not met If not COVID vaccinated a COVID test must be conducted within 72 hours of surgery and patient is asked to isolate self from time of testing until procedure. You will go to the [facility] for your COVID testing. The [facility] Testing site is located at the corner of [address] from [facility]. You will only be called if COVID results are positive and your surgeon may reschedule your elective surgery date. Patients may have clear liquids (water, carbonated beverages, clear teas, apple juice) until 3 hours prior to surgery with a maximum of 20 ounces. - No food from midnight until time of surgery - Infants may have breast milk until 4 hours before surgery, infant formula 6 hours prior to surgery. - Children will be allowed to drink immediately following surgery. If applicable, please bring a bottle or sippy cup to assist with drinking. Juice, water, soda, and popsicles are readily available. For infants on formula, please bring formula the day of surgery. Pacifiers are allowed. Take the following medications with a SIP of water the morning of surgery: _METOPROLOL Medications to discontinue per physician ___ASPIRIN AND MELOXICAM PER DR RYAN. ALL VITAMINS AND SUPPLEMENTS 3 DAYS PRE OP Date to take last dose___05/29/21 Please no make-up, nail scottish, hairspray, perfume, deodorant, or body powder the day of surgery. No jewelry (including any body piercings) or valuables the day of surgery, leave them at home. Please take a shower or bath the night before, or the morning of, surgery with an antibacterial soap. Wear comfortable, loose fitting clothing. Children are encouraged to wear pajamas. - Jewelry must be removed prior to entering the operating room. Rings and piercings that are not removed may be cut off. - The hospital will not accept responsibility for valuables. - Please leave all valuables, including medications, at home the day of surgery. If you are going home after surgery, a licensed local bulk driver must drive you home. - NO public transportation without another adult. - We recommend that an adult stay with you for 24 hours following discharge. - We also recommend that you do not drive, make important decision, drink alcoholic beverages, or take any drugs that were not prescribed by your health care provider for at least 24 hours after your discharge time. For Pediatric surgeries, we recommend two adults accompany the child home (only one inside the building at this time). Follow any additional instructions given to you from your surgeon. Telephone instructions given to _PATIENT and asked if any additional questions and then verbalized understanding. Patient advised to call surgeon office or pre surgery nurse liaison [phone] if any additional questions.
--- NOTE | 2021-05-30 18:09 | PM.HPGS ---
History of Present Illness History of Present Illness Consent: Risks, benefits, and alternatives have been discussed and questions answered. Patient agrees to proceed with procedure. Chief complaint: right ureteral stone Narrative: Adi Estrella Jr. is a 65 year old male with recurrent urolithiasis. He's s/p recent right ESWL for large right renal stones. Serial imaging shows resolving, but incomplete passage of, residual stone fragments. After a period of observation and consideration of alternative therapeutic options he elects for repeat right ESWL. He is aware this may not completely clear the fragments in the risk of perinephric hematoma. Review of Systems Cardiovascular: Cardiovascular: Denies chest pain, Denies lightheadedness, Denies palpitations and Denies dyspnea Respiratory: Respiratory: Denies dyspnea Gastrointestinal: Gastrointestinal: Denies diarrhea, Denies nausea and Denies vomiting Genitourinary: Genitourinary: Denies hematuria and Denies dysuria Endocrine: Endocrine: Denies palpitations PMFSH Past Medical History Medical History Benign essential hypertension Hyperlipidemia LDL goal <100 Morbid obesity Obstructive sleep apnea CPAP Right ureteral stone Tobacco use Type 2 diabetes mellitus with hyperglycemia Family History Family History Sibling Patient's sister is in good health Patient's brother is in good health Father Family history of cardiovascular disease, Onset Age: 80 Family history of lung disease Hypertension History of stroke Carcinoma of colon Mother Family history of cardiovascular disease, Onset Age: 90 Heart disease unsure of type of heart disease Social History Social History Smoking packs per day: 0.5 Smoking cigarettes per day: 10.0 Years smoked: 50 Smoking pack-years: 25.00 Smoking status: Current every day smoker Tobacco type: cigarettes Second hand tobacco smoke exposure: Yes Additional smoking assessment comments: CURRENTLY SMOKES 5 CIGARETTES PER DAY Alcohol intake: former Alcohol use details: SOCIALLY YEARS AGO Substance use: never Substance use type: does not use Additional living arrangements comments: Gender identity (if verbalized by the patient): Male Sexual Orientation (if Verbalized by the Patient): Straight or Heterosexual Spiritual care concerns: No Meds Home Medications and Allergies Home Medications Medication Instructions Recorded Confirmed Type blood sugar diagnostic #300 each 07/24/19 05/02/21 Rx aspirin 81 mg tablet,delayed 81 mg PO DAILY 07/27/19 05/25/21 History release All Day Allergy (cetirizine) 10 mg PO HS 06/22/20 05/25/21 History Centrum Silver Men 1 tablet PO DAILY 06/22/20 05/25/21 History Glucosamine Chondroitin 2 cap PO DAILY 02/07/21 05/25/21 History metoprolol succinate [Toprol XL] 25 mg PO QAM 30 Days #30 tablet 02/07/21 05/25/21 Rx metformin 500 mg tablet,extended See Rx Instructions .ROUTE 03/28/21 05/25/21 Rx release 24 hr .COMPLEX #360 tablet atorvastatin 10 mg tablet See Rx Instructions .ROUTE 04/07/21 05/25/21 Rx .COMPLEX #90 tablet hydrocodone-acetaminophen 1 - 2 tablet PO Q6H PRN #20 tablet 04/28/21 05/25/21 Rx meloxicam 15 mg tablet 15 mg PO QAM #90 tablet 05/08/21 05/25/21 Rx quinapril 20 1 tablet PO DAILY #90 tablet 05/08/21 05/25/21 Rx mg-hydrochlorothiazide 12.5 mg tablet cyanocobalamin (vitamin B-12) 1,000 mcg PO DAILY 05/25/21 05/25/21 History Allergies Allergy/AdvReac Type Severity Reaction Status Date / Time No Known Allergies Allergy Verified 05/25/21 12:58 Exam Const: General: no acute distress Resp: Effort & Inspection: normal respiratory effort GI: Inspection: non-distended GI Palp: No abdominal tenderness and No Guarding due to
[2021-06-02] VITALS (7 sets, daily range): BP systolic 114–142; BP diastolic 74–84; PULSE 69–84; RESP 10–16; TEMP 36.3–36.6; O2SAT 94–98
--- NOTE | ~2021-06-02 | XR_ITS ---
XR abdomen/kub 1V DATE: 06/02/2021 06:16 INDICATION: Lithotripsy. Nephrolithiasis. TECHNIQUE: AP supine projections COMPARISON: 05/22/2021 through 01/23/2021 KUB examinations FINDINGS: Right internal urinary stent is again noted in expected position, unchanged since 05/22/2021 . Numerous small calcified stones are noted in the right kidney, particularly lower pole as well as rig ht renal pelvis, with little interval change since 05/22/2021. No evidence of bowel obstruction. The psoas shadows are intact. Degenerative changes of the thoracic and lumbar spine. IMPRESSION: Numerous small stones of the right kidney and right renal pelvis persists, relatively unc hanged since 05/22/2021 Right internal urinary stent Reviewed, dictated and finalized at [facility]. Reviewed, dictated and finalized at location [facility]. ITECTURAL TECHNOLOGIST IMPRESSION: Numerous small stones of the right kidney and right renal pelvis pe rsists, relatively unchanged since 05/22/2021 Right internal urinary stent
--- NOTE | 2021-06-02 06:40 | WPDHPUPDATE1 ---
History and Physical Update Update Date/Time: 06/02/21 06:40 History and Physical has been reviewed, including an updated exam of the patient. There are NO changes in the patient's condition. Risks, benefits, and alternatives have been discussed and questions answered. Patient agrees to proceed with procedure.
[2021-06-02] MEDS: LACTATED RINGERS 1,000 ML 30 ML IV CONT (06:52)
--- NOTE | 2021-06-02 06:53 | WPDANESEPPF ---
Anes - Initial Pre Proc Eval Procedure: Operation Date: 06/02/21 07:30 Proposed Procedures p Right Extracorporeal Shock Wave Lithotripsy - Timur Romo MD Date/Time: 06/02/21 06:53 Surgeon: Timur Romo MD Pre Op Diagnosis: right ureteral stone Patient Data Age: 65 Gender: M Height: 1.68 m Weight: 129.5 kg Last Vital Signs Temp 36.6 C 06/02/21 06:25 Pulse 84 06/02/21 06:25 Resp 16 06/02/21 06:25 BP 142/77 H 06/02/21 06:25 Pulse Ox 97 06/02/21 06:25 Allergies Allergy/AdvReac Type Severity Reaction Status Date / Time No Known Allergies Allergy Verified 06/02/21 06:36 Home Medications Medication Instructions Recorded Confirmed Type blood sugar diagnostic #300 each 07/24/19 05/02/21 Rx aspirin 81 mg tablet,delayed 81 mg PO DAILY 07/27/19 06/02/21 History release All Day Allergy (cetirizine) 10 mg PO HS 06/22/20 06/02/21 History Centrum Silver Men 1 tablet PO DAILY 06/22/20 06/02/21 History Glucosamine Chondroitin 2 cap PO DAILY 02/07/21 06/02/21 History metoprolol succinate [Toprol XL] 25 mg PO QAM 30 Days #30 tablet 02/07/21 06/02/21 Rx metformin 500 mg tablet,extended See Rx Instructions .ROUTE 03/28/21 06/02/21 Rx release 24 hr .COMPLEX #360 tablet atorvastatin 10 mg tablet See Rx Instructions .ROUTE 04/07/21 06/02/21 Rx .COMPLEX #90 tablet hydrocodone-acetaminophen 1 - 2 tablet PO Q6H PRN #20 tablet 04/28/21 05/25/21 Rx meloxicam 15 mg tablet 15 mg PO QAM #90 tablet 05/08/21 06/02/21 Rx quinapril 20 1 tablet PO DAILY #90 tablet 05/08/21 06/02/21 Rx mg-hydrochlorothiazide 12.5 mg tablet cyanocobalamin (vitamin B-12) 1,000 mcg PO DAILY 05/25/21 06/02/21 History Patient hx anesthesia problems: none Family hx anesthesia problems: none Results Review: All pre-operative results and documents have been reviewed as part of the pre-operative evaluation. [facility] Past Medical History Medical History Benign essential hypertension Hyperlipidemia LDL goal <100 Morbid obesity Obstructive sleep apnea CPAP Right ureteral stone Tobacco use Type 2 diabetes mellitus with hyperglycemia Family History Family History Sibling Patient's sister is in good health Patient's brother is in good health Father Family history of cardiovascular disease, Onset Age: 80 Family history of lung disease Hypertension History of stroke Carcinoma of colon Mother Family history of cardiovascular disease, Onset Age: 90 Heart disease unsure of type of heart disease Social History Social History Smoking packs per day: 3 Smoking cigarettes per day: 60.0 Years smoked: 50 Smoking pack-years: 150.00 Smoking status: Current every day smoker Tobacco type: cigarettes Second hand tobacco smoke exposure: Yes Additional smoking assessment comments: CURRENTLY SMOKES 5 CIGARETTES PER DAY Alcohol intake: former Alcohol use details: SOCIALLY YEARS AGO Substance use: never Substance use type: does not use Living arrangements: with family Additional living arrangements comments: Gender identity (if verbalized by the patient): Male Sexual Orientation (if Verbalized by the Patient): Straight or Heterosexual Spiritual care concerns: No Anes - Eval Final PreProcedure Day of Procedure 06/02/21 06:53 Patient weight: morbidly obese Heart: regular rate and rhythm Lungs: clear to auscultation Airway: Mallampati scale class III Neurological: alert and oriented Last oral intake: >/= 8 hours ASA classification: III Emergent: no Anesthetic plan: proceed Anesthesia type and monitoring: general LMA and standard monitoring Results Review: All pre-operative results and documents have been reviewed as part of the pre-operative evaluation. Informed Consent: The patie
[2021-06-02 06:54] LABS: Glucose Point of Care 143 mg/dl (65-105)
[2021-06-02] MEDS: ceFAZolin 3 GM/D5W 100 ML 100 ML IVPB (07:29)
--- NOTE | 2021-06-02 07:51 | W.PM.PROC2 ---
Procedure Note - Detailed Date of Procedure 06/02/21 Pre-op Diagnosis Right renal stones Post-op Diagnosis same Procedure Performed Right ESWL Surgeon Timur Romo MD Anesthesia general Description of Procedure The patient was brought to the operative suite where he was placed in the supine position on the Dornier lithotripsy table. On today's KUB there were no stones along the right ureteral stent - all fragments having relocated into the lower and mid-pole calyces. The focal point of the lithotripter was placed at the mid-pole calyceal fragments. A total of 2500 shocks were delivered at a power setting of 4. The patient tolerated the procedure well and was taken to the recovery room in good condition. Drains No Packing No Pathology none sent Complications No immediate complications Condition stable Disposition PACU
[2021-06-02 08:33] LABS: Glucose Point of Care 150 mg/dl (65-105)
== END 2021-06-02 09:50 | disposition home or self-care (01) ==
PROVIDERS: PCP Internal Medicine; Visit Provider Urology
PROC: (CPT 50590; principal; 2021-06-02 07:30)
DX: N20.0 Calculus of kidney (principal); Z79.84 Long term (current) use of oral hypoglycemic drugs; Z79.82 Long term (current) use of aspirin; I10 Essential (primary) hypertension; E78.5 Hyperlipidemia, unspecified; G47.33 Obstructive sleep apnea (adult) (pediatric); E11.65 Type 2 diabetes mellitus with hyperglycemia; F17.210 Nicotine dependence, cigarettes, uncomplicated; E66.9 Obesity, unspecified; Z68.42 Body mass index [BMI] 45.0-49.9, adult
CPT/HCPCS: 50590; 36415; 74018; 82948; 85610; 85730; 87086; J0690; J1100; J2250; J2405; J2704; J3010; J7120

== ENCOUNTER 2021-06-20 11:23 | Outpatient (CLI) | payer OTHER, SELFPAY ==
--- NOTE | ~2021-06-20 | XR_ITS ---
EXAMINATION: XR abdomen/kub 1V EXAM DATE: 06/20/2021 11:41 INDICATION: N20.0 - Calculus of kidney. TECHNIQUE: Frontal projection of the upper abdomen, frontal projection lower abdomen/pelvis for inter pretation. Comparison is made to prior examination from 06/02/2021. FINDINGS: There is a right-sided double-J ureteral stent in expected position. Large amount of small clustered calcifications projecting over right renal calyces. Possible candidates for couple of smal l stones along the course of the ureter. No definite left nephrolithiasis. Nonobstructive bowel gas p attern. IMPRESSION: 1. Large amount of clustered right calyceal stones. 2. Ureteral stent in position. Reviewed, dictated and finalized at location [facility]. OYMENT SERVICE SPECIALIST
== END 2021-06-20 11:24 | disposition home or self-care (01) ==
LOC: ANHIMG 11:27
PROVIDERS: PCP Internal Medicine; Visit Provider Urology
DX: N20.0 Calculus of kidney (principal)
CPT/HCPCS: 74018

== ENCOUNTER 2021-06-20 17:32 | Outpatient (CLI) | payer OTHER, SELFPAY ==
--- NOTE | ~2021-06-20 | CT_ITS ---
EXAMINATION: CT abdomen pelvis wo con EXAM DATE: 06/20/2021 18:25 INDICATION: Kidney stone. TECHNIQUE: Spiral CT of the abdomen and pelvis was performed without contrast. Axial, coronal and sag ittal images were reviewed. The dose-length product (DLP) for this examination was 1118.46 mGy-cm. The exposure was tailored according to patient size (auto mA exposure control), and iterative reconst ruction (ASIR) was used as additional dose reduction technique. Comparison is made to prior examinati on from 06/15/2020. FINDINGS: Right-sided double-J ureteral stent in position. There is severe right-sided hydronephrosis as previously seen. Numerous small right calyceal stones are present about 3 mm in size. No stones i dentified along the course of the ureters. Punctate left superior calyceal stone. The prostate is un remarkable. The bladder is unremarkable. The liver, spleen, adrenal glands and pancreas are unremar kable. Gallbladder is unremarkable. No biliary obstruction. There is no retroperitoneal or pelvic lymphadenopathy. Small to moderate-sized umbilical fat-containing hernia. There are no findings to suggest appendicitis. There is mild sigmoid colonic diverticulosis. There i s no adjacent inflammatory change to suggest diverticulitis. The stomach and small bowel are unremar kable. There is expected amount of colonic stool. No free intraperitoneal gas. The heart is norm al in size. There are no pericardial or pleural effusions. The lung bases are unremarkable. There are no osteoblastic or osteolytic lesions identified. IMPRESSION: 1. Numerous small right calyceal stones, severe hydronephrosis. Stent in position. 2. Punctate left nephrolithiasis. 3. Mild colonic diverticulosis. Reviewed, dictated and finalized at location [facility]. ER PROGRAM CONSULTANT IMPRESSION: 1. Numerous small right calyceal stones, severe hydronephrosis. Stent in positi on. 2. Punctate left nephrolithiasis. 3. Mild colonic diverticulosis.
== END 2021-06-20 17:33 | disposition home or self-care (01) ==
LOC: ANHIMG 17:35
PROVIDERS: PCP Internal Medicine; Visit Provider Urology
DX: N20.0 Calculus of kidney (principal); K57.30 Diverticulosis of large intestine without perforation or abscess without bleeding; K42.9 Umbilical hernia without obstruction or gangrene
CPT/HCPCS: 74018; 74176

== ENCOUNTER 2021-07-12 14:16 | Emergency (ER) | payer OTHER, SELFPAY ==
[2021-07-12 14:24] VITALS: BP 141/68; PULSE 87; RESP 16; TEMP 36.8; O2SAT 98
== END 2021-07-12 15:46 | disposition left against medical advice (07) ==
LOC: EXPBETH 14:19
PROVIDERS: Emergency Provider Nurse Practitioner
DX: Z53.21 Procedure and treatment not carried out due to patient leaving prior to being seen by health care provider (principal)
CPT/HCPCS: 99199

== ENCOUNTER → 2021-07-14 00:57 | Outpatient (CLI) | payer OTHER, SELFPAY ==
[2021-07-14 20:43] LABS: SARS-CoV-2 RNA PCR Negative
== END ==
PROVIDERS: Visit Provider Nurse Practitioner Adult Health
DX: Z20.822 Contact with and (suspected) exposure to COVID-19 (principal)
CPT/HCPCS: C9803; U0003; U0005

== ENCOUNTER 2021-07-14 11:05 | Emergency (ER) | payer OTHER, SELFPAY ==
[2021-07-14 11:13] VITALS: BP 160/76; PULSE 91; RESP 16; TEMP 36.6; O2SAT 98
--- NOTE | 2021-07-14 11:25 | ED.GENADULT ---
HPI - General Adult General Chief complaint: Upper Respiratory Infection Stated complaint: Chest Congestion Time Seen by Provider: 07/14/21 11:22 Source: patient and RN notes reviewed Mode of arrival: ambulatory Limitations: no limitations History of Present Illness HPI narrative: 65-year-old male presents with concern for productive cough and chest congestion. Reports symptoms started earlier this week and have improved with Mucinex DM. He denies any current symptoms. Reports he is having surgery upcoming and had a Covid PCR done this morning, he doesn't know the results. He denies fever, body aches, chills, sweats complaint: Chest congestion Related Data Home Medications Medication Instructions Recorded Confirmed aspirin 81 mg tablet,delayed 81 mg PO DAILY 07/27/19 07/12/21 release Centrum Silver Men 1 tablet PO DAILY 06/22/20 07/12/21 Glucosamine Chondroitin 2 cap PO DAILY 02/07/21 07/12/21 cyanocobalamin (vitamin B-12) 1,000 mcg PO DAILY 05/25/21 07/12/21 metformin 1,000 mg PO DAILY 07/12/21 07/12/21 Allergies Allergy/AdvReac Type Severity Reaction Status Date / Time No Known Allergies Allergy Verified 07/14/21 11:25 Review of Systems Review of Systems: CONSTITUTIONAL: Denies malaise, chills, sweats, or fever. EYES: Denies visual changes, redness, or discharge. ENT: Denies rhinorrhea, congestion, sinus pain, otalgia and sore throat. CARDIOVASCULAR: Denies chest pain, palpitations, or edema. RESPIRATORY: Denies cough. Denies dyspnea. GASTROINTESTINAL: Denies abdominal pain, nausea, vomiting, diarrhea SKIN: Denies rash or itching. MUSCULOSKELETAL: Denies myalgia. NEUROLOGIC: Denies headache. All systems reviewed & are unremarkable except as noted in HPI and below PMFSH Past Medical History Medical History Benign essential hypertension Hyperlipidemia LDL goal <100 Morbid obesity Obstructive sleep apnea CPAP Right ureteral stone Tobacco use Type 2 diabetes mellitus with hyperglycemia Family History Family History Sibling Patient's sister is in good health Patient's brother is in good health Father Family history of cardiovascular disease, Onset Age: 80 Family history of lung disease Hypertension History of stroke Carcinoma of colon Mother Family history of cardiovascular disease, Onset Age: 90 Heart disease unsure of type of heart disease Social History Social History Smoking packs per day: 3 Smoking cigarettes per day: 60.0 Years smoked: 50 Smoking pack-years: 150.00 Smoking status: Current every day smoker Tobacco type: cigarettes Second hand tobacco smoke exposure: Yes Additional smoking assessment comments: STATES CURRENTLY SMOKES ABOUT 5 CIGARETTES A DAY Alcohol intake: former Alcohol use details: SOCIALLY YEARS AGO Substance use: never Substance use type: does not use Additional living arrangements comments: Gender identity (if verbalized by the patient): Male Sexual Orientation (if Verbalized by the Patient): Straight or Heterosexual Spiritual care concerns: No Comments At time of signature, agree with nursing past medical, surgical, social and family history. There is no relevant family history pertinent to the presenting complaint Exam Narrative: GENERAL: Well-appearing, well-nourished, and in no acute distress. HEAD: Normocephalic EYES: PERRLA, conjunctivae clear ENT: Nares clear, no discharge. Mucous membranes moist. TM pearly castillo with dull light reflex bilaterally; no tragal tenderness. Oropharynx not erythematous without lesions. Tonsils not enlarged and without exudate, no drooling, no hoarseness, no trismus, uvula midline. NECK: Supple. No lymphadenopathy CHEST: Clear to auscultation, breath sounds equal. No wheezing, rhonchi, r
== END 2021-07-14 11:39 | disposition home or self-care (01) ==
PROVIDERS: Emergency Provider Nurse Practitioner; PCP Internal Medicine
DX: Z71.1 Person with feared health complaint in whom no diagnosis is made (principal); I10 Essential (primary) hypertension; E78.5 Hyperlipidemia, unspecified; E11.9 Type 2 diabetes mellitus without complications; F17.210 Nicotine dependence, cigarettes, uncomplicated; Z79.82 Long term (current) use of aspirin
CPT/HCPCS: 99211; G0463

== ENCOUNTER 2021-07-24 08:51 | Outpatient (CLI) | payer OTHER, SELFPAY ==
[2021-07-24 10:09] LABS: Prothrombin Time 13.2 Seconds (11.1-14.7)
[2021-07-24 10:10] LABS: Partial Thromboplastin Time 30.6 SECONDS (22.3-36.8)
== END 2021-07-24 08:52 | disposition home or self-care (01) ==
PROVIDERS: PCP Internal Medicine; Visit Provider Urology
DX: Z01.818 Encounter for other preprocedural examination (principal); N20.0 Calculus of kidney
CPT/HCPCS: 36415; 85610; 85730; 87086

== ENCOUNTER 2021-07-28 00:35 | Day surgery (SDC) | payer OTHER, SELFPAY ==
[2021-06-29 15:57] VITALS: BMI 46.1
--- NOTE | 2021-06-29 16:08 | PC.NURSE ---
Report to the Outpatient Waiting Room, entrance under the green pavilion located off [facility], at time ___0730____ on date _07/13/21_. OR Time: _0930 AM___. - You and your visitor will be asked a series of questions to screen for COVID 19 for your protection. - A mask is required within the hospital. - Only one visitor is allowed at this time. Patient visitors will be guided where to wait when not with patient. Preoperative COVID Testing Requirements: No COVID Test needed if: (proof is required; if not received patient will have Rapid Test prior to entry) - Patient has received COVID Vaccine at least 14 days prior to procedure date or - Patient has positive COVID test result within last 90 days of surgery date. COVID Test needed if above criteria is not met If not COVID vaccinated a COVID test must be conducted within 72 hours of surgery and patient is asked to isolate self from time of testing until procedure. You will go to the [facility] for your COVID testing. The [facility] site is located at the corner of [address] [facility]. You will only be called if COVID results are positive and your surgeon may reschedule your elective surgery date. Patients may have clear liquids (water, carbonated beverages, clear teas, apple juice) until 3 hours prior to surgery (0630 AM) with a maximum of 20 ounces. - No food from midnight until time of surgery - Infants may have breast milk until 4 hours before surgery, infant formula 6 hours prior to surgery. - Children will be allowed to drink immediately following surgery. If applicable, please bring a bottle or sippy cup to assist with drinking. Juice, water, soda, and popsicles are readily available. For infants on formula, please bring formula the day of surgery. Pacifiers are allowed. Take the following medications with a SIP of water the morning of surgery: ___METOPROLOL Medications to discontinue per physician ____ASPIRIN & MELOXICAM PER DR. RYAN__- ALL VITAMINS AND SUPPLEMENTS 3 DAYS PRIOR TO SURGERY PER ANESTHESIA__ Date to take last dose__ASPIRIN & MELOXICAM PER DR. RYAN - VITAMINS AND SUPPLEMENTS 07/09/21 Please no make-up, nail macedonian, hairspray, perfume, deodorant, or body powder the day of surgery. No jewelry (including any body piercings) or valuables the day of surgery, leave them at home. Please take a shower or bath the night before, or the morning of, surgery with an antibacterial soap. Wear comfortable, loose fitting clothing. Children are encouraged to wear pajamas. - Jewelry must be removed prior to entering the operating room. Rings and piercings that are not removed may be cut off. - The hospital will not accept responsibility for valuables. - Please leave all valuables, including medications, at home the day of surgery. If you are going home after surgery, a licensed shuttle truck driver must drive you home. - NO public transportation without another adult. - We recommend that an adult stay with you for 24 hours following discharge. - We also recommend that you do not drive, make important decision, drink alcoholic beverages, or take any drugs that were not prescribed by your health care provider for at least 24 hours after your discharge time. For Pediatric surgeries, we recommend two adults accompany the child home (only one inside the building at this time). Follow any additional instructions given to you from your surgeon. Telephone instructions given to __PT and asked if any additional questions and then verbalized understanding. Patient advised to call surgeon office or pre surgery nurse liaison [phone] if any additional questions.
--- NOTE | 2021-07-12 13:41 | WPDANESEPPF ---
Anes - Initial Pre Proc Eval Procedure: Operation Date: 07/13/21 12:00 Proposed Procedures p Laser Lithotripsy Bladder Stone - Timur Romo MD s Extracorporeal Shock Wave Lithotripsy to Retain Right Stent - Timur Romo MD Date/Time: 07/12/21 13:41 Surgeon: Timur Romo MD Pre Op Diagnosis: Gross Hematuria, Kidney Stones Patient Data Age: 65 Gender: M Height: 1.68 m Weight: 129.727 kg Allergies Allergy/AdvReac Type Severity Reaction Status Date / Time No Known Allergies Allergy Verified 06/29/21 15:55 Home Medications Medication Instructions Recorded Confirmed Type blood sugar diagnostic #300 each 07/24/19 06/29/21 Rx aspirin 81 mg tablet,delayed 81 mg PO DAILY 07/27/19 06/29/21 History release All Day Allergy (cetirizine) 10 mg PO HS 06/22/20 06/29/21 History Centrum Silver Men 1 tablet PO DAILY 06/22/20 06/29/21 History Glucosamine Chondroitin 2 cap PO DAILY 02/07/21 06/29/21 History metoprolol succinate [Toprol XL] 25 mg PO QAM 30 Days #30 tablet 02/07/21 06/29/21 Rx metformin 500 mg tablet,extended See Rx Instructions .ROUTE 03/28/21 06/29/21 Rx release 24 hr .COMPLEX #360 tablet atorvastatin 10 mg tablet See Rx Instructions .ROUTE 04/07/21 06/29/21 Rx .COMPLEX #90 tablet meloxicam 15 mg tablet 15 mg PO QAM #90 tablet 05/08/21 06/29/21 Rx quinapril 20 1 tablet PO DAILY #90 tablet 05/08/21 06/29/21 Rx mg-hydrochlorothiazide 12.5 mg tablet cyanocobalamin (vitamin B-12) 1,000 mcg PO DAILY 05/25/21 06/29/21 History Results Review: All pre-operative results and documents have been reviewed as part of the pre-operative evaluation. [facility]LY [facility] Past Medical History Medical History Benign essential hypertension Hyperlipidemia LDL goal <100 Morbid obesity Obstructive sleep apnea CPAP Right ureteral stone Tobacco use Type 2 diabetes mellitus with hyperglycemia Family History Family History Sibling Patient's sister is in good health Patient's brother is in good health Father Family history of cardiovascular disease, Onset Age: 80 Family history of lung disease Hypertension History of stroke Carcinoma of colon Mother Family history of cardiovascular disease, Onset Age: 90 Heart disease unsure of type of heart disease Social History Social History Smoking packs per day: 0.5 Smoking cigarettes per day: 10.0 Years smoked: 50 Smoking pack-years: 25.00 Smoking status: Current every day smoker Tobacco type: cigarettes Second hand tobacco smoke exposure: Yes Additional smoking assessment comments: STATES CURRENTLY SMOKES ABOUT 5 CIGARETTES A DAY Alcohol intake: never Alcohol use details: SOCIALLY YEARS AGO Substance use: never Substance use type: does not use Additional living arrangements comments: Gender identity (if verbalized by the patient): Male Sexual Orientation (if Verbalized by the Patient): Straight or Heterosexual Spiritual care concerns: No Anes - Eval Final PreProcedure Day of Procedure 07/12/21 13:41 Patient weight: obese Heart: regular rate and rhythm Lungs: clear to auscultation and normal air movement Airway: Mallampati scale class II Neurological: alert and oriented Last oral intake: >/= 8 hours ASA classification: III Emergent: no Anesthetic plan: proceed Anesthesia type and monitoring: general LMA Results Review: All pre-operative results and documents have been reviewed as part of the pre-operative evaluation. Informed Consent: The patient's anesthetic plan and its attendant risks and benefits were discussed with the patient/family/POA. Questions were solicited and answers provided to the satisfaction of the patient/family/POA.
--- NOTE | 2021-07-13 06:47 | WPDHPUPDATE1 ---
History and Physical Update Update Date/Time: 07/13/21 06:47 History and Physical has been reviewed, including an updated exam of the patient. There are NO changes in the patient's condition. Risks, benefits, and alternatives have been discussed and questions answered. Patient agrees to proceed with procedure.
--- NOTE | 2021-07-20 07:36 | PM.HPGS ---
History of Present Illness History of Present Illness Consent: Risks, benefits, and alternatives have been discussed and questions answered. Patient agrees to proceed with procedure. Chief complaint: Gross Hematuria, Kidney Stones Narrative: Adi Estrella Jr. is a 65 year old male well known me in this facility with a several recent procedures for large right renal calculi. Stones have fractured into small pieces but I had difficulty removing stent because of encrustation. He now presents for repeat right ESWL to the proximal stent coil and cystoscopy with laser lithotripsy of the bladder coil Review of Systems Cardiovascular: Cardiovascular: Denies chest pain, Denies lightheadedness, Denies palpitations and Denies dyspnea Respiratory: Respiratory: Denies dyspnea Gastrointestinal: Gastrointestinal: Denies diarrhea, Denies nausea and Denies vomiting Genitourinary: Genitourinary: Denies hematuria and Denies dysuria Endocrine: Endocrine: Denies palpitations PMFSH Past Medical History Medical History Benign essential hypertension Hyperlipidemia LDL goal <100 Morbid obesity Obstructive sleep apnea CPAP Right ureteral stone Tobacco use Type 2 diabetes mellitus with hyperglycemia Family History Family History Sibling Patient's sister is in good health Patient's brother is in good health Father Family history of cardiovascular disease, Onset Age: 80 Family history of lung disease Hypertension History of stroke Carcinoma of colon Mother Family history of cardiovascular disease, Onset Age: 90 Heart disease unsure of type of heart disease Social History Social History Smoking packs per day: 3 Smoking cigarettes per day: 60.0 Years smoked: 50 Smoking pack-years: 150.00 Smoking status: Current every day smoker Tobacco type: cigarettes Second hand tobacco smoke exposure: Yes Additional smoking assessment comments: STATES CURRENTLY SMOKES ABOUT 5 CIGARETTES A DAY Alcohol intake: former Alcohol use details: SOCIALLY YEARS AGO Substance use: never Substance use type: does not use Additional living arrangements comments: Gender identity (if verbalized by the patient): Male Sexual Orientation (if Verbalized by the Patient): Straight or Heterosexual Spiritual care concerns: No Meds Home Medications and Allergies Home Medications Medication Instructions Recorded Confirmed Type blood sugar diagnostic #300 each 07/24/19 06/29/21 Rx aspirin 81 mg tablet,delayed 81 mg PO DAILY 07/27/19 07/14/21 History release Centrum Silver Men 1 tablet PO DAILY 06/22/20 07/14/21 History Glucosamine Chondroitin 2 cap PO DAILY 02/07/21 07/14/21 History metoprolol succinate [Toprol XL] 25 mg PO QAM 30 Days #30 tablet 02/07/21 07/14/21 Rx meloxicam 15 mg tablet 15 mg PO QAM #90 tablet 05/08/21 07/14/21 Rx quinapril 20 1 tablet PO DAILY #90 tablet 05/08/21 07/14/21 Rx mg-hydrochlorothiazide 12.5 mg tablet cyanocobalamin (vitamin B-12) 1,000 mcg PO DAILY 05/25/21 07/14/21 History metformin 1,000 mg PO DAILY 07/12/21 07/14/21 History Allergies Allergy/AdvReac Type Severity Reaction Status Date / Time No Known Allergies Allergy Verified 07/14/21 11:25 Assessment and Plan Assessment and plan (1) Right renal stone: Code(s): N20.0 - Calculus of kidney Status: Acute (2) Retained ureteral stent: Code(s): Z96.0 - Presence of urogenital implants Status: Acute Assessment and Plan: Right ESWL, laser lithotripsy of ureteral stent coil in the bladder
--- NOTE | 2021-07-21 10:48 | PC.NURSE ---
Report to the Outpatient Waiting Room, entrance under the green pavilion located off [facility], at time __7:00AM on date __07/28/21 . OR Time: __9:00AM . - You and your visitor will be asked a series of questions to screen for COVID 19 for your protection. - A mask is required within the hospital. - Only one visitor is allowed at this time. Patient visitors will be guided where to wait when not with patient. Preoperative COVID Testing Requirements: No COVID Test needed if: (proof is required; if not received patient will have Rapid Test prior to entry) - Patient has received COVID Vaccine at least 14 days prior to procedure date or - Patient has positive COVID test result within last 90 days of surgery date. COVID Test needed if above criteria is not met If not COVID vaccinated a COVID test must be conducted within 72 hours of surgery and patient is asked to isolate self from time of testing until procedure. You will go to the [facility] for your COVID testing. The [facility] Testing site is located at the corner of [address] from [facility]. You will only be called if COVID results are positive and your surgeon may reschedule your elective surgery date. Patients may have clear liquids (water, carbonated beverages, clear teas, apple juice) until 3 hours prior to surgery with a maximum of 20 ounces. - No food from midnight until time of surgery - Infants may have breast milk until 4 hours before surgery, infant formula 6 hours prior to surgery. - Children will be allowed to drink immediately following surgery. If applicable, please bring a bottle or sippy cup to assist with drinking. Juice, water, soda, and popsicles are readily available. For infants on formula, please bring formula the day of surgery. Pacifiers are allowed. Take the following medications with a SIP of water the morning of surgery: __METOPROLOL Medications to discontinue per physician ALL VITAMINS/SUPPLEMENTS 3 DAYS PRE-OP Date to take last dose 07/24/21 Please no make-up, nail bolivian, hairspray, perfume, deodorant, or body powder the day of surgery. No jewelry (including any body piercings) or valuables the day of surgery, leave them at home. Please take a shower or bath the night before, or the morning of, surgery with an antibacterial soap. Wear comfortable, loose fitting clothing. Children are encouraged to wear pajamas. - Jewelry must be removed prior to entering the operating room. Rings and piercings that are not removed may be cut off. - The hospital will not accept responsibility for valuables. - Please leave all valuables, including medications, at home the day of surgery. If you are going home after surgery, a licensed drive away driver must drive you home. - NO public transportation without another adult. - We recommend that an adult stay with you for 24 hours following discharge. - We also recommend that you do not drive, make important decision, drink alcoholic beverages, or take any drugs that were not prescribed by your health care provider for at least 24 hours after your discharge time. For Pediatric surgeries, we recommend two adults accompany the child home (only one inside the building at this time). Follow any additional instructions given to you from your surgeon. Telephone instructions given to __PATIENT and asked if any additional questions and then verbalized understanding. Patient advised to call surgeon office or pre surgery nurse liaison [phone] if any additional questions.
[2021-07-28] VITALS (8 sets, daily range): BP systolic 146–174; BP diastolic 77–95; PULSE 56–71; RESP 13–18; TEMP 36.2–37; O2SAT 96–100
--- NOTE | ~2021-07-28 | XR_ITS ---
EXAMINATION: XR abdomen/kub 1V DATE: 07/28/2021 07:11 INDICATION: Kidney stone. TECHNIQUE: A supine view of the abdomen on 2 radiographs was obtained. COMPARISON: Abdomen radiographs 06/20/2021, CT abdomen and pelvis 06/20/2021 FINDINGS: There are no dilated loops of bowel. There is a right internal ureteral stent in expected p osition. There are innumerable stones in right kidney and right ureter measuring up to at least 3 mm. IMPRESSION: 1. Innumerable stones in right kidney and right ureter with right internal ureteral stent in expected position. Reviewed, dictated and finalized at location B. INSTALLATION TECHNICIAN IMPRESSION: 1. Innumerable stones in right kidney and right ureter with right internal uret eral stent in expected position.
--- NOTE | 2021-07-28 06:46 | WPDHPUPDATE1 ---
History and Physical Update Update Date/Time: 07/28/21 06:46 History and Physical has been reviewed, including an updated exam of the patient. There are NO changes in the patient's condition. Risks, benefits, and alternatives have been discussed and questions answered. Patient agrees to proceed with procedure. Plan today: Laser Lithotripsy Bladder Stone Extracorporeal Shock Wave Lithotripsy to Retain Right Stent
--- NOTE | 2021-07-28 07:40 | WPDANESEPP ---
Anes - Eval Pre Procedure Procedure: Operation Date: 07/28/21 09:00 Proposed Procedures p Laser Lithotripsy Bladder Stone - Timur Romo MD s Extracorporeal Shock Wave Lithotripsy to Retain Right Stent - Timur Romo MD Date/Time: 07/28/21 07:40 Pre Op Diagnosis: Gross Hematuria, Kidney Stones Patient Data Age: 65 Gender: M Height: 1.68 m Weight: 129.9 kg Allergies Allergy/AdvReac Type Severity Reaction Status Date / Time No Known Allergies Allergy Verified 07/28/21 07:16 Home Medications Medication Instructions Recorded Confirmed Type blood sugar diagnostic #300 each 07/24/19 06/29/21 Rx aspirin 81 mg tablet,delayed 81 mg PO DAILY 07/27/19 07/28/21 History release Centrum Silver Men 1 tablet PO DAILY 06/22/20 07/28/21 History Glucosamine Chondroitin 2 cap PO DAILY 02/07/21 07/28/21 History metoprolol succinate [Toprol XL] 25 mg PO QAM 30 Days #30 tablet 02/07/21 07/28/21 Rx meloxicam 15 mg tablet 15 mg PO QAM #90 tablet 05/08/21 07/28/21 Rx quinapril 20 1 tablet PO DAILY #90 tablet 05/08/21 07/28/21 Rx mg-hydrochlorothiazide 12.5 mg tablet cyanocobalamin (vitamin B-12) 1,000 mcg PO DAILY 05/25/21 07/28/21 History metformin 1,000 mg PO BID 07/12/21 07/28/21 History Patient hx anesthesia problems: none Family hx anesthesia problems: none Results Review: All pre-operative results and documents have been reviewed as part of the pre-operative evaluation. FORMERLY [facility], [facility] Past Medical History Medical History Benign essential hypertension Hyperlipidemia LDL goal <100 Leukocytosis Metabolic syndrome Morbid obesity Obstructive sleep apnea CPAP Retained ureteral stent Right renal stone Right ureteral stone Tobacco use Type 2 diabetes mellitus with hyperglycemia Family History Family History Sibling Patient's sister is in good health Patient's brother is in good health Father Family history of cardiovascular disease, Onset Age: 80 Family history of lung disease Hypertension History of stroke Carcinoma of colon Mother Family history of cardiovascular disease, Onset Age: 90 Heart disease unsure of type of heart disease Social History Social History Smoking packs per day: 3 Smoking cigarettes per day: 60.0 Years smoked: 50 Smoking pack-years: 150.00 Smoking status: Current every day smoker Tobacco type: cigarettes Second hand tobacco smoke exposure: Yes Additional smoking assessment comments: STATES CURRENTLY SMOKES ABOUT 5 CIGARETTES A DAY Alcohol intake: former Alcohol use details: SOCIALLY YEARS AGO Substance use: never Substance use type: does not use Living arrangements: with family Additional living arrangements comments: Gender identity (if verbalized by the patient): Male Sexual Orientation (if Verbalized by the Patient): Straight or Heterosexual Spiritual care concerns: No Exam Day of Procedure 07/28/21 07:40 Patient weight: morbidly obese Heart: regular rate and rhythm Airway: Mallampati scale class III Neurological: alert and oriented
[2021-07-28] MEDS: LACTATED RINGERS 1,000 ML 30 ML IV CONT (07:47)
[2021-07-28 07:56] LABS: Glucose Point of Care 172 mg/dl (65-105)
[2021-07-28] MEDS: ceFAZolin 3 GM/D5W 100 ML 100 ML IVPB (08:56)
--- NOTE | 2021-07-28 09:31 | W.PM.PROC2 ---
Procedure Note - Detailed Date of Procedure 07/28/21 Pre-op Diagnosis Right renal stone fragments and retained right ureteral stent Post-op Diagnosis same Procedure Performed 1. Right renal ESWL 2. Right ureteral stent removal and exchange Surgeon Timur Romo MD Anesthesia general Description of Procedure Patient is brought to the operative suite where he is positioned in a supine position on the [facility] Lithotripter table after the uneventful induction of a general anesthetic. Pj 500 shocks were delivered to the proximal coil of his indwelling ureteral stent. We were then able to remove the stent with ease. Because of some question of stones along the ureter I replaced with a 4.8 F variable length stent. We then finished the additional 2000 shocks to residual fragments in his right mid lower pole calices. Patient tolerated this well was taken recovery room in good condition Estimated Blood Loss 0 Drains Yes Packing No Pathology none sent Complications No immediate complications Condition stable Disposition PACU
[2021-07-28] MEDS: LIDOCAINE HCL 2% GEL UROJET 10 ML PKG MUCOUS MEM (09:38)
[2021-07-28] MEDS: KETOROLAC 15 MG/ML VIAL (*BKC) IV PUSH (09:39)
[2021-07-28 09:58] LABS: Glucose Point of Care 187 mg/dl (65-105)
== END 2021-07-28 11:30 | disposition home or self-care (01) ==
PROVIDERS: PCP Internal Medicine; Visit Provider Urology
PROC: (CPT 50590; 2021-07-28 09:00)
DX: N20.2 Calculus of kidney with calculus of ureter (principal); R31.0 Gross hematuria; Z79.82 Long term (current) use of aspirin; Z79.84 Long term (current) use of oral hypoglycemic drugs; I10 Essential (primary) hypertension; E78.5 Hyperlipidemia, unspecified; D72.829 Elevated white blood cell count, unspecified; E88.81 Metabolic syndrome and other insulin resistance; G47.33 Obstructive sleep apnea (adult) (pediatric); E11.65 Type 2 diabetes mellitus with hyperglycemia; Z87.891 Personal history of nicotine dependence; E66.01 Morbid (severe) obesity due to excess calories; Z68.42 Body mass index [BMI] 45.0-49.9, adult
CPT/HCPCS: 50590; 52332; 36415; 74018; 82948; 85610; 85730; 87086; A9270; C1769; C1887; C2617; J0690; J1100; J1885; J2405; J2704; J3010; J7120

== ENCOUNTER 2021-09-11 09:31 | Outpatient (CLI) | payer OTHER, SELFPAY ==
--- NOTE | ~2021-09-11 | XR_ITS ---
EXAMINATION: XR abdomen/kub 1V EXAM DATE: 09/11/2021 09:45 INDICATION: F/U Post Litho - History Of Kidney Stones. TECHNIQUE: Frontal projection(s) of the abdomen for interpretation. Comparison is made to prior exami nation from 07/28/2021. FINDINGS: Numerous small calcific densities, clusters of densities, stones or stone fragments projec ting over right inferior calyces and also the right ureteropelvic junction no pelvic calcifications. Nonobstructive bowel gas pattern. There are mild bony degenerative changes. IMPRESSION: Large volume of right renal, ureteropelvic junction stone fragments. Reviewed, dictated and finalized at location B. OCK JUDGE IMPRESSION: Large volume of right renal, ureteropelvic junction stone fragment s.
== END 2021-09-11 09:32 | disposition home or self-care (01) ==
LOC: ANHIMG 09:35
PROVIDERS: PCP Internal Medicine; Visit Provider Urology
DX: Z87.442 Personal history of urinary calculi (principal)
CPT/HCPCS: 74018

== ENCOUNTER → 2022-04-02 13:38 | Outpatient (CLI) | payer OTHER, SELFPAY ==
--- NOTE | ~2022-04-02 | CT_ITS ---
EXAMINATION: CT abdomen pelvis wo con DATE: 04/02/2022 13:56 INDICATION: Ureteral calculus TECHNIQUE: Computed tomography (CT) of the abdomen and pelvis was performed without intravenous contr ast. Automated exposure control and iterative reconstruction technique were employed. Exam dose: 104 5.44 mGy-cm total exam DLP. COMPARISON: 09/11/2021 KUB 06/20/2021 CT abdomen pelvis FINDINGS: The lung bases are clear of infiltrate or consolidation. Heart size is normal. No pericardi al or pleural effusion. The gallbladder is contracted. No pericholecystic fluid or fat stranding. No hepatic or splenic, panc reatic, adrenal or renal space-occupying mass lesion is noted with the exception of a probable approx imately 1.8 cm right renal cyst. There is an approximately 4 mm nonobstructing upper pole left renal calculus. Right renal atrophy and scarring. There are innumerable stones of the upper, mid and particularly lower pole the right kidney, multiple stones in the dependent aspect of the right renal pelvis and a 4 mm calculus at the right ureteropel kirstin junction. There is mild right hydronephrosis. Prostate enlargement and calcifications. The urinary bladder is unremarkable. There is atherosclerotic calcification of the abdominal aorta but no abdominal aortic aneurysm. No in traperitoneal or retroperitoneal or pelvic mass lesion or adenopathy or ascites. Diverticulosis of left colon; no CT evidence of diverticulitis. No bowel obstruction, bowel wall thic kening, pneumatosis or intraperitoneal free air. Approximately 3.5 x 4 cm fat-containing umbilical or periumbilical hernia. Diffuse idiopathic skeletal hyperostosis of the thoracic spine. Prominent degenerative changes apophy seal joints of the lumbar spine. No suspicious osteolytic or osteoblastic lesions are noted. IMPRESSION: Extensive right nephrolithiasis including multiple stones in the right renal pelvis and 4 mm calculus at right ureteropelvic junction. Mild right hydronephrosis Right renal atrophy and scarring No obstructing 4 mm upper pole left renal calculus Diverticulosis of left colon; no evidence of diverticulitis Reviewed, dictated and finalized at Location A. Reviewed, dictated and finalized at location B. IMPRESSION: Extensive right nephrolithiasis including multiple stones in the r ight renal pelvis and 4 mm calculus at right ureteropelvic junction. Mild right hydronephrosis Right renal atrophy and scarring No obstructing 4 mm upper pole left renal calculus Diverticulosis of left colon; no evidence of diverticulitis
== END ==
PROVIDERS: PCP Family Medicine; Visit Provider Urology
DX: N20.2 Calculus of kidney with calculus of ureter (principal)
CPT/HCPCS: 74176

== ENCOUNTER 2022-04-06 15:45 | Outpatient (CLI) | payer OTHER, SELFPAY ==
[2022-04-06 18:51] LABS: Alanine Aminotransferase 51 U/L (6-50); Albumin Level 4.7 g/dL (3.5-5.1); Alkaline Phosphatase 90 U/L (38-126); Anion Gap 12 mmol/L (8-16); Aspartate Amino Transferase 53 U/L (17-59); Bilirubin,Total 0.6 mg/dL (0.2-1.3); Blood Urea Nitrogen 20 mg/dL (9-20); Calcium 9.9 mg/dL (8.4-10.2); Carbon Dioxide 25 mmol/L (22-30); Chloride 101 mmol/L (98-107); Cholesterol 138 mg/dL (0-200); Estimated Glomerular Filt Rate > 60; Glucose 224 mg/dL (65-110); HDL Direct 39 mg/dL; Potassium 4.2 mmol/L (3.4-5.0); Sodium 138 mmol/L (137-145); Triglycerides 198 mg/dL (<150)
[2022-04-06 19:02] LABS: LDL Cholesterol Direct 65 mg/dL
[2022-04-06 20:06] LABS: Hemoglobin A1C 8.7 % (<5.7)
== END 2022-04-06 15:46 | disposition home or self-care (01) ==
PROVIDERS: PCP Family Medicine; Visit Provider Family Medicine
DX: E11.65 Type 2 diabetes mellitus with hyperglycemia (principal); I10 Essential (primary) hypertension; E78.5 Hyperlipidemia, unspecified
CPT/HCPCS: 36415; 80053; 80061; 83036

== ENCOUNTER 2022-09-16 13:54 | Outpatient (CLI) | payer OTHER, SELFPAY ==
--- NOTE | ~2022-09-16 | XR_ITS ---
EXAMINATION: XR abdomen/kub 1V INDICATION: History of kidney stones TECHNIQUE: Supine views of the abdomen were obtained on 2 radiographs. COMPARISON: 09/11/2021 FINDINGS: Motion artifact somewhat limits the examination. There are multiple stones or clusters of s tones in the right kidney measuring up to 2 cm. Some stones project in the expected location of the r ight renal pelvis. No left-sided urolithiasis is identified. The bowel gas pattern is normal. IMPRESSION: 1. Right nephrolithiasis with possible stones in the right renal pelvis. Reviewed, dictated and finalized at location F. ARY THERAPIST
== END 2022-09-16 13:55 | disposition home or self-care (01) ==
PROVIDERS: PCP Family Medicine; Visit Provider Urology
DX: N20.0 Calculus of kidney (principal)
CPT/HCPCS: 74018

== ENCOUNTER 2022-09-24 13:41 | Outpatient (CLI) | payer OTHER, SELFPAY ==
--- NOTE | ~2022-09-24 | CT_ITS ---
Non-contrast CT scan of the Abdomen and Pelvis Clinical indication: Calculus of ureter Technique: 2.5 mm axial scans were obtained through the abdomen and pelvis without intravenous or or al contrast. Dose reduction technique was used on this scan by utilizing automated exposure control a nd iterative reconstruction technique. The dose-length product (DLP) was 1306.22 mGy-cm. COMPARISON: 04/02/2022 Findings: Images through the lung bases reveal no abnormalities. There is a 1-2 mm stone at the distal right ureter (axial image 152). There is multiple small stones layering in the dilated right renal pelvis. There is mild to moderate right hydronephrosis and dilata tion of the right renal pelvis, with tapering at the proximal right ureter. No obstructing stone evid ent at this level however. Multiple additional nonobstructing right renal stones are present. Stable nonobstructing left renal stone present. No left ureteral stone or left hydronephrosis. The liver, spleen, pancreas, gallbladder, and adrenals appear normal. There is no aortic aneurysm. There is no evidence of bowel obstruction. Fat-containing umbilical hernia noted. Images through the pelvis were performed. There is no evidence of ascites or lymphadenopathy. Urinary bladder unremarkable. Prostate gland and seminal vesicles are unremarkable. Impression: 1-2 mm distal right ureteral stone. Moderate dilatation of the right renal collecting system and right renal pelvis/proximal ureter, with tapering at the proximal right ureter. No obstructing stone present at the level of tapering at this time. Numerous additional nonobstructing right renal stones. Single nonobstructing left renal stone. Fat-containing umbilical hernia. Reviewed, dictated and finalized at [facility]. Impression: 1-2 mm distal right ureteral stone. Moderate dilatation of the right renal collecting system and right renal pelvis /proximal ureter, with tapering at the proximal right ureter. No obstructing st one present at the level of tapering at this time. Numerous additional nonobstructing right renal stones. Single nonobstructing le ft renal stone. Fat-containing umbilical hernia.
== END 2022-09-24 13:42 | disposition home or self-care (01) ==
PROVIDERS: PCP Family Medicine; Visit Provider Urology
DX: N20.2 Calculus of kidney with calculus of ureter (principal); K42.9 Umbilical hernia without obstruction or gangrene
CPT/HCPCS: 74176

== ENCOUNTER 2022-10-23 14:53 | Outpatient (CLI) | payer OTHER, SELFPAY ==
[2022-10-23 19:19] LABS: Hemoglobin A1C 7.7 % (<5.7)
[2022-10-23 19:24] LABS: Alanine Aminotransferase 40 U/L (6-50); Albumin Level 4.7 g/dL (3.5-5.1); Alkaline Phosphatase 80 U/L (38-126); Anion Gap 4 mmol/L (8-16); Aspartate Amino Transferase 45 U/L (17-59); Bilirubin,Total 0.6 mg/dL (0.2-1.3); Blood Urea Nitrogen 19 mg/dL (9-20); Calcium 9.7 mg/dL (8.4-10.2); Carbon Dioxide 33 mmol/L (22-30); Chloride 102 mmol/L (98-107); Cholesterol 155 mg/dL (0-200); Estimated Glomerular Filt Rate > 60; Glucose 201 mg/dL (65-110); HDL Direct 38 mg/dL; Potassium 4.3 mmol/L (3.4-5.0); Sodium 139 mmol/L (137-145); Triglycerides 255 mg/dL (<150)
[2022-10-23 19:35] LABS: Creatinine Urine 226.8 mg/dL
[2022-10-23 19:42] LABS: MALB Creatinine Ratio 25.6 mg/g (0-30)
[2022-10-23 19:52] LABS: Prostate Specific Antigen 0.7 ng/mL (< OR = 4.0)
[2022-10-23 21:05] LABS: LDL Cholesterol Direct 67 mg/dL
== END 2022-10-23 14:54 | disposition home or self-care (01) ==
LOC: ANHGOSHLAB 14:54
PROVIDERS: PCP Family Medicine; Visit Provider Family Medicine
DX: Z12.5 Encounter for screening for malignant neoplasm of prostate (principal); E11.9 Type 2 diabetes mellitus without complications; E78.5 Hyperlipidemia, unspecified; I10 Essential (primary) hypertension
CPT/HCPCS: 36415; 80053; 80061; 82043; 83036; 84153; G0103

== ENCOUNTER 2023-04-08 18:18 | Emergency (ER) | payer OTHER, SELFPAY ==
[2023-04-08] VITALS (8 sets, daily range): BP systolic 102–150; BP diastolic 64–99; PULSE 82–199; RESP 12–22; TEMP 36.7; O2SAT 96–100
--- NOTE | ~2023-04-08 | XR_ITS ---
EXAMINATION: XR chest 1V portable Exam Date/Time: 04/08/2023 18:40 CDT HISTORY: fast HR (TACHYCARDIA UPON ARRIVAL) STARTED 4-5 HOURS AGO Comparison: 02/07/2021. RESULT: Lines, tubes, and devices: None. Lungs and pleura: Clear. Cardiomediastinal silhouette: Stable. Other: No acute osseous or upper abdominal finding. IMPRESSION: No acute cardiopulmonary process. Reviewed, dictated and finalized at location K.
--- NOTE | 2023-04-08 18:21 | ECG_ITS ---
Measurements Intervals [place] Rate: 197 P: [place]: 0 QRS: -66 QRSD: 123 T: 59 QT: 238 QTc: 431 Interpretive Statements WIDE COMPLEX TACHYCARDIA, PROBABLY SVT RIGHT BUNDLE BRANCH BLOCK LEFT ANTERIOR FASCICULAR BLOCK ANTEROLATERAL INFARCT, AGE INDETERMINATE INFERIOR INFARCT, AGE INDETERMINATE ABNORMAL ECG COMPARED TO ECG 02/07/2021 00:59:19 WIDE COMPLEX TACHYCARDIA NOW PRESENT RIGHT BUNDLE-BRANCH BLOCK NOW PRESENT LEFT ANTERIOR FASCICULAR BLOCK NOW PRESENT Electronically Signed On 04-08-2023 18:53:48 CDT by Wai Bernal D.O.
[2023-04-08] MEDS: ASPIRIN 81 MG CHEWABLE TABLET 324 MG PO (18:39)
--- NOTE | 2023-04-08 18:39 | ECG_ITS ---
Measurements Intervals [place] Rate: 96 P: 17 [place]: 155 QRS: -64 QRSD: 137 T: 17 QT: 350 QTc: 442 Interpretive Statements SINUS RHYTHM VENTRICULAR PREMATURE COMPLEX LEFT AXIS DEVIATION RIGHT BUNDLE BRANCH BLOCK INFERIOR INFARCT, AGE INDETERMINATE BASELINE ARTIFACT- I, III, AVR, AVL, AVF, V1-V4 ABNORMAL ECG COMPARED TO ECG 04/08/2023 18:25:26 SINUS RHYTHM NOW PRESENT Electronically Signed On 04-09-2023 7:00:55 CDT by Wai Bernal D.O.
--- NOTE | 2023-04-08 18:42 | ED.ARRPALP ---
HPI - Arrhythmia/Palpitations General Chief Complaint: Arrhythmia/Palpitations <AMA Ling Last Filed: 04/09/23 01:53> Stated Complaint: fast HR, history of SVT <AMA Ling Last Filed: 04/09/23 01:53> Time Seen by Provider: 04/08/23 18:30 <AMA Ling Last Filed: 04/09/23 01:53> Source: patient and old records reviewed <AMA Ling Last Filed: 04/09/23 01:53> Mode of arrival: ambulatory <AMA Ling Filed: 04/09/23 01:53> Limitations: no limitations <AMA Ling Filed: 04/09/23 01:53> History of Present Illness HPI narrative: Patient is a 67 y/o male who presents to the ED with c/o chest tightness and palpitations. Patient reports approximately 5 hours prior to arrival he began feeling unwell. He states he was walking through a grocery store and had to leave the store because he had developed chest tightness and shortness of breath. He states he felt better at rest. He did feel slight palpitations. He has a history of SVT, with 5 previous episodes, typically all have resolved with vagal maneuvers. He sees Dr. Roman and was recently started on metoprolol to control his heart rate. He takes 25 mg daily. He took an extra metoprolol today when he began feeling unwell, but symptoms persisted which prompted his presentation. Patient denies any recent illness, cough or cold symptoms, nausea, vomiting, abdominal pain, lower extremity pain or swelling. <AMA Ling Last Filed: 04/09/23 01:53> Related Data Home Medications: Home Medications Medication Instructions Recorded Confirmed aspirin 81 mg tablet,delayed 81 mg PO DAILY 07/27/19 02/26/23 release (Adult Low Dose Aspirin) [id number] 300 mcg-K 60 1 tablet PO DAILY 06/22/20 02/26/23 mcg-lycop 600 mcg-lutein 300 mcg tablet (Centrum Silver Men) Glucosamine Chondroitin 2 cap PO DAILY 02/07/21 02/26/23 <Kathryn Gutierrez PA-C - Last Filed: 04/09/23 01:53> Allergies/Adverse Reactions: Allergies Allergy/AdvReac Type Severity Reaction Status Date / Time No Known Allergies Allergy Verified 04/08/23 18:45 <Kathryn Gutierrez PA-C - Last Filed: 04/09/23 01:53> Review of Systems Review of Systems: CONSTITUTIONAL: Denies fever, chills, or sweats. ENT: Denies rhinorrhea, congestion, sore throat. CARDIOVASCULAR: See HPI. RESPIRATORY: See HPI. GASTROINTESTINAL: Denies abdominal pain, nausea, vomiting. MUSCULOSKELETAL: Denies back pain, joint pain, or myalgia. NEUROLOGIC: Denies headache, numbness, or weakness. <Kathryn Gutierrez PA-C - Last Filed: 04/09/23 01:53> All systems reviewed & are unremarkable except as noted in HPI and below <Kathryn Gutierrez PA-C - Last Filed: 04/09/23 01:53> [facility] Past Medical History Medical History: Medical History Benign essential hypertension Hyperlipidemia LDL goal <100 Leukocytosis Metabolic syndrome Morbid obesity Obstructive sleep apnea CPAP Retained ureteral stent Right renal stone Right ureteral stone Tobacco use Type 2 diabetes mellitus with hyperglycemia <Kathryn Gutierrez PA-C - Last Filed: 04/09/23 01:53> Family History Family History: Family History Sibling Patient's sister is in good health Patient's brother is in good health Father Family history of cardiovascular disease, Onset Age: 80 Family history of lung disease Hypertension History of stroke Carcinoma of colon Mother Family history of cardiovascular disease, Onset Age: 90 Heart disease unsure of type of heart disease <Kathryn Gutierrez PA-C - Last Filed: 04/09/23 01:53> Social History Social History: Social History (Reviewed 04/08/23 @ 20:18 by Kathryn Noel
[2023-04-08 18:44] LABS: Basophils Absolute Auto 0.1 K/mm3 (0.0-0.1); Basophils Percent Auto 0.6 % (0.2-1.2); Eosinophils Absolute Auto 0.3 K/mm3 (0-0.3); Eosinophils Percent Auto 1.9 % (0-4.4); Hematocrit 41.6 % (42.0-52.0); Hemoglobin 13.7 g/dL (14.0-18.0); Immature Granulocyte Absolute 0.03 K/mm3 (0.00-0.031); Immature Granulocyte Percent A 0.2 % (0-0.5); Lymphocytes Absolute Auto 6.06 K/mm3 (0.9-3.2); Lymphocytes Percent Auto 43.3 % (18.3-44.2); Mean Corpuscular HGB Conc 32.9 g/dl (32-36); Mean Corpuscular Hemoglobin 31.1 pg (26-34); Mean Corpuscular Volume 94.3 fl (80-100); Mean Platelet Volume 9.4 fl (7.4-10.4); Monocytes Absolute Auto 1.2 K/mm3 (0.1-0.6); Monocytes Percent Auto 8.2 % (2.6-8.5); Neutrophils Absolute Auto 6.4 K/mm3 (1.3-6.7); Neutrophils Percent Auto 45.8 % (45.5-73.1); Platelet Count Result 318 k/mm3 (150-375); Red Blood Count 4.41 M/mm3 (4.6-6.20); Red Cell Distribution Width 12.8 % (11.5-14.5)
[2023-04-08 18:52] LABS: Alanine Aminotransferase 34 U/L (6-50); Alkaline Phosphatase 51 U/L (38-126); Anion Gap 11 mmol/L (8-16); Aspartate Amino Transferase 30 U/L (17-59); Bilirubin,Total 0.7 mg/dL (0.2-1.3); Blood Urea Nitrogen 23 mg/dL (9-20); Calcium 10.3 mg/dL (8.4-10.2); Carbon Dioxide 26 mmol/L (22-30); Chloride 103 mmol/L (98-107); Estimated Glomerular Filt Rate > 60; Glucose 143 mg/dL (65-110); Lipase 148 U/L (23-300); Sodium 140 mmol/L (137-145)
[2023-04-08 18:54] LABS: Prothrombin Time 13.3 Seconds (11.1-14.7)
[2023-04-08 18:55] LABS: Partial Thromboplastin Time 29.9 SECONDS (22.3-36.8)
[2023-04-08 19:04] LABS: Troponin I < 0.012 ng/mL (0.000-0.034)
[2023-04-08 20:14] LABS: Magnesium 1.5 mg/dL (1.6-2.3)
[2023-04-08] MEDS: MAGNESIUM SULF 2 GM/WATER 50ML 2 GM/50 ML BAG IVPB (20:35)
== END 2023-04-08 21:54 | disposition home or self-care (01) ==
PROVIDERS: Emergency Medicine; Emergency Provider Physician Assistant; PCP Family Medicine
DX: I47.1 Supraventricular tachycardia (principal); E83.42 Hypomagnesemia; R94.31 Abnormal electrocardiogram [ECG] [EKG]; F17.210 Nicotine dependence, cigarettes, uncomplicated; E11.9 Type 2 diabetes mellitus without complications; G47.30 Sleep apnea, unspecified; Z87.442 Personal history of urinary calculi; E78.5 Hyperlipidemia, unspecified
CPT/HCPCS: 36415; 71045; 80053; 83690; 83735; 84484; 85025; 85610; 85730; 93005; 96365; 99284; A9270; J3475

== ENCOUNTER 2023-04-13 17:45 | Emergency (ER) | payer OTHER, SELFPAY ==
--- NOTE | ~2023-04-13 | XR_ITS ---
EXAMINATION: XR chest 1V portable Exam Date/Time: 04/13/2023 18:05 CDT HISTORY: chest pain Comparison: 04/08/2023. RESULT: Lines, tubes, and devices: None. Lungs and pleura: Clear. Cardiomediastinal silhouette: Stable. Other: No acute osseous or upper abdominal finding. IMPRESSION: No acute cardiopulmonary process. Reviewed, dictated and finalized at location K.
--- NOTE | 2023-04-13 17:46 | ECG_ITS ---
Measurements Intervals [place] Rate: 200 P: [place]: 0 QRS: -72 QRSD: 122 T: 64 QT: 244 QTc: 445 Interpretive Statements WIDE COMPLEX TACHYCARDIA, PROBABLY SUPRAVENTRICULAR TACHYCARDIA RIGHT BUNDLE BRANCH BLOCK INFERIOR INFARCT, AGE INDETERMINATE ANTEROLATERAL INFARCT, AGE INDETERMINATE BASELINE ARTIFACT- V2 ABNORMAL ECG COMPARED TO ECG 04/08/2023 18:39:19 WIDE COMPLEX TACHYCARDIA, NOW PRESENT Electronically Signed On 04-13-2023 20:36:44 CDT by Wai Bernal D.O.
[2023-04-13 17:55] VITALS: BP 139/97; PULSE 196; RESP 18; TEMP 36.6; O2SAT 97
[2023-04-13 18:03] VITALS: BP 132/97; PULSE 99; RESP 14; O2SAT 96
[2023-04-13 18:04] VITALS: O2SAT 98
--- NOTE | 2023-04-13 18:05 | ECG_ITS ---
Measurements Intervals [employer] Rate: 103 P: 37 PA: 152 QRS: -71 QRSD: 122 T: 16 QT: 340 QTc: 446 Interpretive Statements SINUS TACHYCARDIA FREQUENT VENTRICULAR PREMATURE COMPLEXES LEFT AXIS DEVIATION RIGHT BUNDLE BRANCH BLOCK INFERIOR INFARCT, AGE INDETERMINATE BASELINE ARTIFACT- I, II, III, AVR ABNORMAL ECG COMPARED TO ECG 04/13/2023 17:50:58 SINUS TACHYCARDIA NOW PRESENT Electronically Signed On 04-13-2023 20:37:53 CDT by Wai Bernal D.O.
--- NOTE | 2023-04-13 18:14 | ED.CHESTPAIN ---
HPI - Chest Pain General Chief Complaint: Chest Pain Stated Complaint: chest pain Time Seen by Provider: 04/13/23 17:59 History of Present Illness HPI narrative: Patient is a 67-year-old male who presents to the ED this afternoon complaining of a chest pain and rapid heart rate.? Patient admits having history of SVT and states that he was here last week for the same complaint. Patient believes that this is his fifth time going into SVT and admits that in all of the previous visits he has been responsive to vagal maneuvers.? Patient states that initially his chest pain was severe but now it has significantly improved since he arrived to the emergency department and he rates it at a 3 out of 10 on the pain scale. Patient has seen Dr. Roman and after his last ED visit was scheduled to follow-up with her as an outpatient. Patient was on metoprolol 25 mg prior to his last ED visit and his dose was increased to 25 mg and he admits that he has been taking the full 50 mg since his ED discharge. Patient is currently denying any chest pain, shortness of breath, nausea, vomiting, abdominal pain, dysuria, hematuria, constipation, diarrhea, melena, hematochezia, fevers or chills. He also denies any headaches, dizziness, lightheadedness, blurry visions, dizziness, focal weakness, numbness and or tingling. There are no other modifying, alleviating, or precipitating factors at this time. Related Data Home Medications Medication Instructions Recorded Confirmed aspirin 81 mg tablet,delayed 81 mg PO DAILY 07/27/19 02/26/23 release (Adult Low Dose Aspirin) [id number] 300 mcg-K 60 1 tablet PO DAILY 06/22/20 02/26/23 mcg-lycop 600 mcg-lutein 300 mcg tablet (Centrum Silver Men) Glucosamine Chondroitin 2 cap PO DAILY 02/07/21 02/26/23 Allergies Allergy/AdvReac Type Severity Reaction Status Date / Time No Known Allergies Allergy Verified 04/13/23 18:06 Review of Systems Review of Systems: All systems are reviewed and are negative unless stated otherwise in the HPI. FORMERLY [facility], [facility] Past Medical History Medical History Benign essential hypertension Hyperlipidemia LDL goal <100 Leukocytosis Metabolic syndrome Morbid obesity Obstructive sleep apnea CPAP Retained ureteral stent Right renal stone Right ureteral stone Tobacco use Type 2 diabetes mellitus with hyperglycemia Family History Family History Sibling Patient's sister is in good health Patient's brother is in good health Father Family history of cardiovascular disease, Onset Age: 80 Family history of lung disease Hypertension History of stroke Carcinoma of colon Mother Family history of cardiovascular disease, Onset Age: 90 Heart disease unsure of type of heart disease Social History Social History Smoking packs per day: 3 Smoking cigarettes per day: 60.0 Years smoked: 50 Smoking pack-years: 150.00 Smoking status: Former smoker Tobacco type: cigarettes Second hand tobacco smoke exposure: Yes Additional smoking assessment comments: STATES CURRENTLY SMOKES ABOUT 5 CIGARETTES A DAY Alcohol intake: former Alcohol use details: SOCIALLY YEARS AGO Substance use: never Substance use type: does not use Living arrangements: with family Additional living arrangements comments: Gender identity (if verbalized by the patient): Male Sexual Orientation (if Verbalized by the Patient): Straight or Heterosexual Spiritual care concerns: No Agree to blood products: Yes Exam Narrative: General: Alert, awake, afebrile, in no acute distress. HEENT: PERRL, no rhinorrhea, no post nasal drip, oropharynx clear. Neck: Trachea midline, no JVD, no lymphadenopathy. Cardiovascular: Tachycardic with a regular rhythm, no murmurs, rubs or gallops, no p
[2023-04-13 18:17] LABS: Basophils Absolute Auto 0.1 K/mm3 (0.0-0.1); Basophils Percent Auto 0.4 % (0.2-1.2); Eosinophils Absolute Auto 0.3 K/mm3 (0-0.3); Eosinophils Percent Auto 2.3 % (0-4.4); Hematocrit 41.9 % (42.0-52.0); Hemoglobin 14.1 g/dL (14.0-18.0); Immature Granulocyte Absolute 0.04 K/mm3 (0.00-0.031); Immature Granulocyte Percent A 0.3 % (0-0.5); Lymphocytes Absolute Auto 5.21 K/mm3 (0.9-3.2); Lymphocytes Percent Auto 45.3 % (18.3-44.2); Mean Corpuscular HGB Conc 33.7 g/dl (32-36); Mean Corpuscular Hemoglobin 31.1 pg (26-34); Mean Corpuscular Volume 92.3 fl (80-100); Mean Platelet Volume 9.5 fl (7.4-10.4); Monocytes Absolute Auto 1.1 K/mm3 (0.1-0.6); Monocytes Percent Auto 9.1 % (2.6-8.5); Neutrophils Absolute Auto 4.9 K/mm3 (1.3-6.7); Neutrophils Percent Auto 42.6 % (45.5-73.1); Platelet Count Result 305 k/mm3 (150-375); Red Blood Count 4.54 M/mm3 (4.6-6.20); Red Cell Distribution Width 13.1 % (11.5-14.5); White Blood Count 11.5 K/mm3 (4.5-10.0)
[2023-04-13] MEDS: ASPIRIN 81 MG CHEWABLE TABLET 324 MG PO (18:23)
[2023-04-13 18:28] LABS: Alanine Aminotransferase 35 U/L (6-50); Albumin Level 4.9 g/dL (3.5-5.1); Alkaline Phosphatase 55 U/L (38-126); Anion Gap 12 mmol/L (8-16); Aspartate Amino Transferase 32 U/L (17-59); Bilirubin,Total 0.5 mg/dL (0.2-1.3); Blood Urea Nitrogen 19 mg/dL (9-20); Calcium 10.2 mg/dL (8.4-10.2); Carbon Dioxide 22 mmol/L (22-30); Chloride 104 mmol/L (98-107); Estimated CRCL calculation 89 ml/min; Estimated Glomerular Filt Rate > 60; Glucose 153 mg/dL (65-110); Lipase 126 U/L (23-300); Potassium 4.6 mmol/L (3.4-5.0); Prothrombin Time 13.4 Seconds (11.1-14.7); Sodium 138 mmol/L (137-145)
[2023-04-13 18:29] LABS: Partial Thromboplastin Time 31.3 SECONDS (22.3-36.8)
[2023-04-13 18:39] VITALS: BP 103/69; PULSE 97; RESP 14; O2SAT 95
[2023-04-13 18:40] LABS: Troponin I < 0.012 ng/mL (0.000-0.034)
[2023-04-13 19:20] LABS: Magnesium 1.4 mg/dL (1.6-2.3)
[2023-04-13 19:27] VITALS: BP 106/72; PULSE 92; RESP 15; O2SAT 97
[2023-04-13] MEDS: MAGNESIUM SULF 1 GM/D5W 100 ML 1 GM/100 ML BAG IVPB (19:36)
[2023-04-13 20:43] VITALS: BP 108/76; PULSE 86; RESP 15; O2SAT 97
== END 2023-04-13 20:45 | disposition home or self-care (01) ==
PROVIDERS: Emergency Medicine; Emergency Provider Emergency Medicine; PCP Family Medicine
DX: I47.1 Supraventricular tachycardia (principal); R07.9 Chest pain, unspecified; I10 Essential (primary) hypertension; E78.5 Hyperlipidemia, unspecified; E66.01 Morbid (severe) obesity due to excess calories; Z68.42 Body mass index [BMI] 45.0-49.9, adult; E88.81 Metabolic syndrome and other insulin resistance; G47.33 Obstructive sleep apnea (adult) (pediatric); F17.210 Nicotine dependence, cigarettes, uncomplicated; Z87.442 Personal history of urinary calculi; Z79.82 Long term (current) use of aspirin; Z79.84 Long term (current) use of oral hypoglycemic drugs; I45.10 Unspecified right bundle-branch block; R94.31 Abnormal electrocardiogram [ECG] [EKG]
CPT/HCPCS: 36415; 71045; 80053; 83690; 83735; 84484; 85025; 85610; 85730; 93005; 96365; 99284; A9270; J3475

== ENCOUNTER 2023-07-05 01:41 | Emergency (ER) | payer OTHER, SELFPAY ==
[2023-07-05 01:39] VITALS: BP 138/90; PULSE 98; RESP 16; TEMP 37; O2SAT 100
--- NOTE | 2023-07-05 01:42 | ECG_ITS ---
Measurements Intervals [place] Rate: 96 P: 48 [place]: 151 QRS: -73 QRSD: 140 T: 44 QT: 367 QTc: 464 Interpretive Statements SINUS RHYTHM RIGHT BUNDLE BRANCH BLOCK [120+ ms QRS DURATION, UPRIGHT V1, 40+ ms S IN I/aVL/V4/V5/V6] LEFT ANTERIOR FASCICULAR BLOCK [QRS AXIS <= -45, QR IN I, RS IN II] ABNORMAL ECG COMPARED TO ECG 04/13/2023 18:06:57 PVCS ARE NO LONGER DEMONSTRATED Electronically Signed On 07-05-2023 15:08:36 FIREARMS EXPERT by Julio Cesar Florian M.D.
--- NOTE | 2023-07-05 01:49 | ED.ARRPALP ---
HPI - Arrhythmia/Palpitations General Chief Complaint: Arrhythmia/Palpitations Stated Complaint: palpations Time Seen by Provider: 07/05/23 01:46 History of Present Illness HPI narrative: 67-year-old male with history of paroxysmal SVT present to the ED for evaluation after having episode of SVT. Patient states this was approximately his 5th episode of SVT. Patient has had previous follow-up with Cardiology and does take 50 mg metoprolol daily. Patient was told that when he has an episode of SVT he can take another 25 mg. Patient was resting and watching TV when he had onset of some chest congestion and noticed that he was back in SVT. Patient did try the Valsalva maneuvers of cold water on the face and bearing down with no improvement of his heart rate. Patient called EMS and patient was treated with 6 mg of Adenocard and patient converted back to normal sinus rhythm. Upon arrival to the emergency department patient was in normal sinus rhythm and patient had no complaints. Patient denies any chest pressure chest tightness or chest congestion. Related Data Home Medications Medication Instructions Recorded Confirmed aspirin 81 mg tablet,delayed 81 mg PO DAILY 07/27/19 04/25/23 release (Adult Low Dose Aspirin) [id number]-om-[id number] 300 mcg-K 60 1 tablet PO DAILY 06/22/20 04/25/23 mcg-lycop 600 mcg-lutein 300 mcg tablet (Centrum Silver Men) Glucosamine Chondroitin 2 cap PO DAILY 02/07/21 04/25/23 Allergies Allergy/AdvReac Type Severity Reaction Status Date / Time No Known Allergies Allergy Verified 04/25/23 14:35 Review of Systems Review of Systems: All systems reviewed & are unremarkable except as noted in HPI and below [facility] Past Medical History Medical History Benign essential hypertension Hyperlipidemia LDL goal <100 Leukocytosis Metabolic syndrome Morbid obesity Obstructive sleep apnea CPAP Retained ureteral stent Right renal stone Right ureteral stone Tobacco use Type 2 diabetes mellitus with hyperglycemia Family History Family History Sibling Patient's sister is in good health Patient's brother is in good health Father Family history of cardiovascular disease, Onset Age: 80 Family history of lung disease Hypertension History of stroke Carcinoma of colon Mother Family history of cardiovascular disease, Onset Age: 90 Heart disease unsure of type of heart disease Social History Social History Smoking packs per day: 3 Smoking cigarettes per day: 60.0 Years smoked: 50 Smoking pack-years: 150.00 Smoking status: Former smoker Tobacco type: cigarettes Second hand tobacco smoke exposure: Yes Additional smoking assessment comments: STATES CURRENTLY SMOKES ABOUT 5 CIGARETTES A DAY Alcohol intake: former Alcohol use details: SOCIALLY YEARS AGO Substance use: never Substance use type: does not use Living arrangements: with family Additional living arrangements comments: Gender identity (if verbalized by the patient): Male Sexual Orientation (if Verbalized by the Patient): Straight or Heterosexual Spiritual care concerns: No Agree to blood products: Yes Exam Narrative: APPEARANCE: Well appearing, no pain, no distress, well-nourished. HEAD: normocephalic, atraumatic. EYES: PERRLA/EOMI, conjunctivae clear. NOSE: Normal no drainage EARS:TMS clear with good light reflex. THROAT: Pharynx clear, no exudate. NECK: Supple. No adenopathy, no masses. RESPIRATORY: Airway patent, respirations nonlabored. Clear to auscultation bilaterally, no rales, rhonchi, wheezing. CARDIOVASCULAR: Regular rate and rhythm without murmurs rubs or gallops. ABDOMINAL: Soft, nontender, nondistended, normal bowel sounds MUSCULOSKELETAL: Moves all extremities. Strength/ROM intact, No edema
[2023-07-05 01:55] LABS: Basophils Percent Auto 0.5 % (0.2-1.2); Eosinophils Absolute Auto 0.4 K/mm3 (0-0.3); Eosinophils Percent Auto 4.3 % (0-4.4); Hematocrit 40.6 % (42.0-52.0); Immature Granulocyte Absolute 0.02 K/mm3 (0.00-0.031); Immature Granulocyte Percent A 0.2 % (0-0.5); Lymphocytes Absolute Auto 4.05 K/mm3 (0.9-3.2); Mean Corpuscular Hemoglobin 30.8 pg (26-34); Mean Corpuscular Volume 96.2 fl (80-100); Mean Platelet Volume 9.3 fl (7.4-10.4); Monocytes Absolute Auto 0.8 K/mm3 (0.1-0.6); Neutrophils Absolute Auto 3.5 K/mm3 (1.3-6.7); Platelet Count Result 246 k/mm3 (150-375); Red Blood Count 4.22 M/mm3 (4.6-6.20); Red Cell Distribution Width 12.8 % (11.5-14.5); White Blood Count 8.8 K/mm3 (4.5-10.0)
[2023-07-05 02:07] LABS: Alanine Aminotransferase 31 U/L (6-50); Albumin Level 4.6 g/dL (3.5-5.1); Alkaline Phosphatase 68 U/L (38-126); Anion Gap 11 mmol/L (8-16); Aspartate Amino Transferase 27 U/L (17-59); Bilirubin,Total 0.4 mg/dL (0.2-1.3); Blood Urea Nitrogen 21 mg/dL (9-20); Calcium 9.8 mg/dL (8.4-10.2); Carbon Dioxide 19 mmol/L (22-30); Chloride 109 mmol/L (98-107); Estimated CRCL calculation 106 ml/min; Estimated Glomerular Filt Rate > 60; Glucose 161 mg/dL (65-110); Magnesium 1.6 mg/dL (1.6-2.3); Potassium 4.4 mmol/L (3.4-5.0); Sodium 139 mmol/L (137-145)
[2023-07-05 02:40] VITALS: BP 144/84; PULSE 90; RESP 16; O2SAT 98
== END 2023-07-05 02:41 | disposition home or self-care (01) ==
LOC: ANHED 02:35
PROVIDERS: Emergency Provider Emergency Medicine; PCP Family Medicine
DX: I47.10 Supraventricular tachycardia, unspecified (principal); I10 Essential (primary) hypertension; E78.5 Hyperlipidemia, unspecified; E11.9 Type 2 diabetes mellitus without complications; G47.33 Obstructive sleep apnea (adult) (pediatric); Z79.82 Long term (current) use of aspirin; E66.01 Morbid (severe) obesity due to excess calories; Z87.891 Personal history of nicotine dependence
CPT/HCPCS: 36415; 80053; 83735; 84443; 85025; 93005; 99283

== ENCOUNTER 2023-07-19 11:41 | Emergency (ER) | payer OTHER, SELFPAY ==
[2023-07-19] VITALS (13 sets, daily range): BP systolic 123–152; BP diastolic 73–102; PULSE 77–190; RESP 13–20; TEMP 36.4; O2SAT 96–99
--- NOTE | ~2023-07-19 | XR_ITS ---
XR chest 1V portable DATE: 07/19/2023 12:28 INDICATION: Tachycardia TECHNIQUE: Portable AP chest on 07/19/2023 1224 hours COMPARISON: 04/13/2023 portable AP chest at 1810 hours FINDINGS: Normal heart size. No hilar or mediastinal enlargement. No pulmonary infiltrate or consolid ation, pleural effusion or pulmonary vascular congestion or pneumothorax is detected. Degenerative spurring of the thoracic spine. IMPRESSION: Limited portable single view revealing no apparent active cardiopulmonary disease Reviewed, dictated and finalized at location B. L FRONT DESK ATTENDANT IMPRESSION: Limited portable single view revealing no apparent active cardiopul monary disease
--- NOTE | 2023-07-19 11:54 | ECG_ITS ---
Measurements Intervals [place] Rate: 194 P: NC: 0 QRS: 133 QRSD: 130 T: -9 QT: 262 QTc: 471 Interpretive Statements WIDE COMPLEX TACHYCARDIA, CONSIDER SUPRAVENTRICULAR TACHYCARDIA RIGHT BUNDLE BRANCH BLOCK LEFT POSTERIOR FASCICULAR BLOCK ANTEROLATERAL INFARCT, AGE INDETERMINATE ST-T WAVE ABNORMALITY IN INFERIOR LEADS- CONSIDER ISCHEMIA OR RATE RELATED BASELINE WANDER- V1-V3 ABNORMAL ECG COMPARED TO ECG 07/05/2023 01:46:17 WIDE COMPLEX TACHYCARDIA NOW PRESENT LEFT POSTERIOR FASCICULAR BLOCK NOW PRESENT MYOCARDIAL INFARCT FINDING NOW PRESENT Electronically Signed On 07-19-2023 12:39:25 UM RN by Wai Bernal D.O.
--- NOTE | 2023-07-19 11:54 | ECG_ITS ---
Measurements Intervals [place] Rate: 94 P: 31 [place]: 160 QRS: 131 QRSD: 134 T: 22 QT: 360 QTc: 450 Interpretive Statements SINUS RHYTHM RIGHT BUNDLE BRANCH BLOCK LEFT POSTERIOR FASCICULAR BLOCK CONSIDER ANTERIOR INFARCT, AGE INDETERMINATE BASELINE WANDER- I, III, V1-V6 ABNORMAL ECG COMPARED TO ECG 07/05/2023 01:46:17 LEFT POSTERIOR FASCICULAR BLOCK NOW PRESENT Electronically Signed On 07-19-2023 12:37:50 SWITCHBOARD OPERATOR RECEPTIONIST by Wai Bernal D.O.
[2023-07-19] MEDS: ADENOSINE IV SOLN 6 MG/2 ML VIAL IV PUSH (11:55)
--- NOTE | 2023-07-19 11:57 | ED.ARRPALP ---
HPI - Arrhythmia/Palpitations General Chief Complaint: Arrhythmia/Palpitations <AMA Finn Last Filed: 07/19/23 14:07> Stated Complaint: svt <AMA Finn Last Filed: 07/19/23 14:07> Time Seen by Provider: 07/19/23 11:57 <AMA Finn Last Filed: 07/19/23 14:07> Source: patient <AMA Finn Last Filed: 07/19/23 14:07> Mode of arrival: ambulatory <AMA Finn Last Filed: 07/19/23 14:07> Limitations: no limitations <AMA Finn Last Filed: 07/19/23 14:07> History of Present Illness HPI narrative: This is a 67 year old male that presents to the ER for elevated heart rate. Reports history of SVT. Reports he started to feel like his heart was racing about an hour ago. Reports it was in the 180s at home which prompted him to be seen. He has had several previous episodes of SVT. His nurse clinical is Dr. Roman. He has an appointment to see an Site Coordinator this month at [facility]. He did take his Metoprolol this morning. Denies chest pain or shortness of breath. <AMA Finn Last Filed: 07/19/23 14:07> Related Data Home Medications: Home Medications Medication Instructions Recorded Confirmed aspirin 81 mg tablet,delayed 81 mg PO DAILY 07/27/19 04/25/23 release (Adult Low Dose Aspirin) [id number]-[id number] 300 mcg-K 60 1 tablet PO DAILY 06/22/20 04/25/23 mcg-lycop 600 mcg-lutein 300 mcg tablet (Centrum Silver Men) Glucosamine Chondroitin 2 cap PO DAILY 02/07/21 04/25/23 <AMA Finn Last Filed: 07/19/23 14:07> Allergies/Adverse Reactions: Allergies Allergy/AdvReac Type Severity Reaction Status Date / Time No Known Allergies Allergy Verified 04/25/23 14:35 <AMA Finn Last Filed: 07/19/23 14:07> Review of Systems Review of Systems: CONSTITUTIONAL: Denies fever CARDIOVASCULAR: Reports palpitations. Denies chest pain RESPIRATORY: Denies dyspnea. <Reshma Bynum PA-C - Last Filed: 07/19/23 14:07> All systems reviewed & are unremarkable except as noted in HPI and below <Reshma Bynum PA-C - Last Filed: 07/19/23 14:07> [facility] Past Medical History Medical History: Medical History (Updated 07/19/23 @ 14:02 by Reshma Bynum PA-C) Benign essential hypertension History of paroxysmal supraventricular tachycardia Hyperlipidemia LDL goal <100 Leukocytosis Metabolic syndrome Morbid obesity Obstructive sleep apnea CPAP Retained ureteral stent Right renal stone Right ureteral stone Tobacco use Type 2 diabetes mellitus with hyperglycemia <Reshma Bynum PA-C - Last Filed: 07/19/23 14:07> Family History Family History: Family History Sibling Patient's sister is in good health Patient's brother is in good health Father Family history of cardiovascular disease, Onset Age: 80 Family history of lung disease Hypertension History of stroke Carcinoma of colon Mother Family history of cardiovascular disease, Onset Age: 90 Heart disease unsure of type of heart disease <Reshma Bynum PA-C - Last Filed: 07/19/23 14:07> Social History Social History: Social History Smoking packs per day: 3 Smoking cigarettes per day: 60.0 Years smoked: 50 Smoking pack-years: 150.00 Smoking status: Former smoker Tobacco type: cigarettes Second hand tobacco smoke exposure: Yes Additional smoking assessment comments: STATES CURRENTLY SMOKES ABOUT 5 CIGARETTES A DAY Alcohol intake: former Alcohol use details: SOCIALLY YEARS AGO Substance use: never Substance use type: does not use Living arrangements: with family Additional living arrangements comments: Gender identity (if verbalized by the patient): Male Sexual Orientation (if Verbalized by the Patient): Str
[2023-07-19 12:08] LABS: Basophils Percent Auto 0.4 % (0.2-1.2); Eosinophils Absolute Auto 0.6 K/mm3 (0-0.3); Eosinophils Percent Auto 5.8 % (0-4.4); Hematocrit 41.3 % (42.0-52.0); Hemoglobin 13.7 g/dL (14.0-18.0); Immature Granulocyte Absolute 0.02 K/mm3 (0.00-0.031); Immature Granulocyte Percent A 0.2 % (0-0.5); Lymphocytes Absolute Auto 4.92 K/mm3 (0.9-3.2); Lymphocytes Percent Auto 48.7 % (18.3-44.2); Mean Corpuscular HGB Conc 33.2 g/dl (32-36); Mean Corpuscular Hemoglobin 31.5 pg (26-34); Mean Corpuscular Volume 94.9 fl (80-100); Mean Platelet Volume 9.5 fl (7.4-10.4); Monocytes Absolute Auto 0.9 K/mm3 (0.1-0.6); Monocytes Percent Auto 8.4 % (2.6-8.5); Neutrophils Absolute Auto 3.7 K/mm3 (1.3-6.7); Neutrophils Percent Auto 36.5 % (45.5-73.1); Platelet Count Result 260 k/mm3 (150-375); Red Blood Count 4.35 M/mm3 (4.6-6.20); Red Cell Distribution Width 12.6 % (11.5-14.5); White Blood Count 10.1 K/mm3 (4.5-10.0)
[2023-07-19 12:19] LABS: Alanine Aminotransferase 30 U/L (6-50); Albumin Level 4.6 g/dL (3.5-5.1); Alkaline Phosphatase 58 U/L (38-126); Anion Gap 12 mmol/L (8-16); Aspartate Amino Transferase 28 U/L (17-59); Bilirubin,Total 0.5 mg/dL (0.2-1.3); Blood Urea Nitrogen 18 mg/dL (9-20); Calcium 9.9 mg/dL (8.4-10.2); Carbon Dioxide 22 mmol/L (22-30); Chloride 107 mmol/L (98-107); Estimated CRCL calculation 86 ml/min; Estimated Glomerular Filt Rate > 60; Glucose 184 mg/dL (65-110); Lipase 230 U/L (23-300); Potassium 4.5 mmol/L (3.4-5.0); Sodium 141 mmol/L (137-145)
[2023-07-19 12:20] LABS: INR 0.9; Prothrombin Time 12.9 Seconds (11.1-14.7)
[2023-07-19 12:21] LABS: Partial Thromboplastin Time 30.6 SECONDS (22.3-36.8)
[2023-07-19 12:29] LABS: Troponin I < 0.012 ng/mL (0.000-0.034)
[2023-07-19] MEDS: ASPIRIN 81 MG CHEWABLE TABLET 324 MG PO (12:32)
--- NOTE | 2023-07-19 12:35 | PC.NURSE ---
Pt reports taking 1 baby aspirin daily.
[2023-07-19 12:59] LABS: Magnesium 1.3 mg/dL (1.6-2.3)
[2023-07-19] MEDS: MAGNESIUM SULF 2 GM/WATER 50ML 2 GM/50 ML BAG IVPB (13:13)
== END 2023-07-19 14:16 | disposition home or self-care (01) ==
PROVIDERS: Emergency Medicine; Emergency Provider Physician Assistant; PCP Family Medicine
DX: I47.10 Supraventricular tachycardia, unspecified (principal); E83.42 Hypomagnesemia; I10 Essential (primary) hypertension; E11.9 Type 2 diabetes mellitus without complications; E78.5 Hyperlipidemia, unspecified; E88.810 Metabolic syndrome; G47.33 Obstructive sleep apnea (adult) (pediatric); F17.210 Nicotine dependence, cigarettes, uncomplicated; Z87.442 Personal history of urinary calculi; Z79.82 Long term (current) use of aspirin; Z79.84 Long term (current) use of oral hypoglycemic drugs; I45.2 Bifascicular block; R94.31 Abnormal electrocardiogram [ECG] [EKG]
CPT/HCPCS: 36415; 71045; 80053; 83690; 83735; 84484; 85025; 85610; 85730; 93005; 96365; 96375; 99284; A9270; J0153; J3475

== ENCOUNTER 2023-07-21 06:05 | Emergency (ER) | payer OTHER, SELFPAY ==
[2023-07-21] VITALS (7 sets, daily range): BP systolic 130–140; BP diastolic 74–79; PULSE 90–198; RESP 14–21; TEMP 36.9; O2SAT 98–100
--- NOTE | ~2023-07-21 | XR_ITS ---
XR chest 1V portable DATE: 07/21/2023 06:45 INDICATION: Shortness of breath. Chest palpitations. TECHNIQUE: Portable upright AP chest on 07/21/2023 at 0638 hours COMPARISON: 07/19/2023 portable AP chest FINDINGS: There is mild pulmonary vascular prominence and redistribution compared to 07/19/2023. Heart size is normal. No hilar or mediastinal enlargement. No pleural effusion or pneumothorax. Degenerative spurring of the thoracic spine. IMPRESSION: Mild pulmonary vascular congestion is suggested Reviewed, dictated and finalized at location A. RVISOR DECORATING
--- NOTE | 2023-07-21 06:07 | ECG_ITS ---
Measurements Intervals [place] Rate: 197 P: NC: 0 QRS: -75 QRSD: 117 T: 64 QT: 250 QTc: 453 Interpretive Statements WIDE COMPLEX TACHYCARDIA, CONSIDER SUPRAVENTRICULAR TACHYCARDIA LEFT AXIS DEVIATION RIGHT BUNDLE BRANCH BLOCK CONSIDER INFERIOR INFARCT, AGE INDETERMINATE BASELINE ARTIFACT- I, V1-V3 ABNORMAL ECG COMPARED TO ECG 07/19/2023 11:57:50 WIDE COMPEX TACHYCARDIA NOW PRESENT Electronically Signed On 07-21-2023 9:30:28 STATISTICAL PROGRAMMER ANALYST by Wai Bernal D.O.
--- NOTE | 2023-07-21 06:19 | ED.GENADULT ---
HPI - General Adult General Chief complaint: Arrhythmia/Palpitations Stated complaint: SVT? Time Seen by Provider: 07/21/23 06:18 History of Present Illness HPI narrative: Patient is a 67-year-old gentleman who presents emergency department with chief complaint of SVT. Patient reports he has prior history of supraventricular tachycardia and reports that he started having a fast heart rate last night with a heart rate in the 190s. Patient states he attempted vagal maneuvers at home and came to the emergency department. The patient states that he feels a little short of breath with this and reports he has a little bit of tightness but no true chest pain with it. Related Data Home Medications Medication Instructions Recorded Confirmed aspirin 81 mg tablet,delayed 81 mg PO DAILY 07/27/19 04/25/23 release (Adult Low Dose Aspirin) ghhedkmi-ro-rhjls 300 mcg-K 60 1 tablet PO DAILY 06/22/20 04/25/23 mcg-lycop 600 mcg-lutein 300 mcg tablet (Centrum Silver Men) Glucosamine Chondroitin 2 cap PO DAILY 02/07/21 04/25/23 Allergies Allergy/AdvReac Type Severity Reaction Status Date / Time No Known Allergies Allergy Verified 07/21/23 06:16 Review of Systems Review of Systems: A 10 system review of systems was completed on the patient and is negative except for what is stated in the HPI. Nursing and ancillary documentation was reviewed. [facility] Past Medical History Medical History Benign essential hypertension History of paroxysmal supraventricular tachycardia Hyperlipidemia LDL goal <100 Leukocytosis Metabolic syndrome Morbid obesity Obstructive sleep apnea CPAP Retained ureteral stent Right renal stone Right ureteral stone Tobacco use Type 2 diabetes mellitus with hyperglycemia Family History Family History Sibling Patient's sister is in good health Patient's brother is in good health Father Family history of cardiovascular disease, Onset Age: 80 Family history of lung disease Hypertension History of stroke Carcinoma of colon Mother Family history of cardiovascular disease, Onset Age: 90 Heart disease unsure of type of heart disease Social History Social History Smoking packs per day: 3 Smoking cigarettes per day: 60.0 Years smoked: 50 Smoking pack-years: 150.00 Smoking status: Former smoker Tobacco type: cigarettes Second hand tobacco smoke exposure: Yes Additional smoking assessment comments: STATES CURRENTLY SMOKES ABOUT 5 CIGARETTES A DAY Alcohol intake: former Alcohol use details: SOCIALLY YEARS AGO Substance use: never Substance use type: does not use Living arrangements: with family Additional living arrangements comments: Gender identity (if verbalized by the patient): Male Sexual Orientation (if Verbalized by the Patient): Straight or Heterosexual Spiritual care concerns: No Agree to blood products: Yes Exam Narrative: GENERAL: Well-appearing, well-nourished, and in no acute distress. HEAD: Normocephalic, atraumatic. EYES: PERRLA and EOMI. ENT: Nares clear, no rhinorrhea or epistaxis. Mucous membranes moist. NECK: Supple. CHEST: Clear to auscultation. No respiratory distress. HEART: Tachycardic rate and rhythm. No murmur heard. Normal peripheral pulses. ABDOMEN: Soft, nontender, nondistended, normal active bowel sounds. EXTREMITIES: Normal range of motion. No edema. SKIN: Warm, dry, no rash. NEURO: No focal deficits. Alert and oriented x3. PSYCH: Normal mood and affect. Course Course Emergency Course: Differential diagnosis includes electrolyte abnormality, supraventricular tachycardia, dysrhythmia, EKG showed SVT with a rate of 197 IV access was obtained vagal maneuvers were attempted during IV access.
[2023-07-21] MEDS: ADENOSINE IV SOLN 6 MG/2 ML VIAL IV PUSH (06:29)
[2023-07-21] MEDS: SODIUM CHLORIDE 0.9% IV 1,000 ML 999 ML IV CONT (06:30)
[2023-07-21 06:31] LABS: Basophils Percent Auto 0.3 % (0.2-1.2); Eosinophils Absolute Auto 0.4 K/mm3 (0-0.3); Eosinophils Percent Auto 3.6 % (0-4.4); Hematocrit 39.6 % (42.0-52.0); Hemoglobin 12.5 g/dL (14.0-18.0); Immature Granulocyte Absolute 0.06 K/mm3 (0.00-0.031); Immature Granulocyte Percent A 0.5 % (0-0.5); Lymphocytes Absolute Auto 2.46 K/mm3 (0.9-3.2); Lymphocytes Percent Auto 20.9 % (18.3-44.2); Mean Corpuscular HGB Conc 31.6 g/dl (32-36); Mean Corpuscular Hemoglobin 31.1 pg (26-34); Mean Corpuscular Volume 98.5 fl (80-100); Mean Platelet Volume 9.5 fl (7.4-10.4); Monocytes Absolute Auto 1.1 K/mm3 (0.1-0.6); Monocytes Percent Auto 9.2 % (2.6-8.5); Neutrophils Absolute Auto 7.7 K/mm3 (1.3-6.7); Neutrophils Percent Auto 65.5 % (45.5-73.1); Platelet Count Result 229 k/mm3 (150-375); Red Blood Count 4.02 M/mm3 (4.6-6.20); Red Cell Distribution Width 12.8 % (11.5-14.5); White Blood Count 11.8 K/mm3 (4.5-10.0)
--- NOTE | 2023-07-21 06:31 | PC.NURSE ---
0605- On arrival to room pt HR 192-200. EDP Dr. Linton at bedside. Pt attached to environmental monitoring specialist, defibrillator. IV placed by LESLIE Wynne. 0608 - EDP Dr. Linton attempted vagal maneuvers on pt w no success. 0610 - EDP Dr. Linton VORB IV bolus to be hung, 6mg of adenosine to be pulled. Pt HR 198. Continuous EKG started. 0614 - 6 mg adenosine given by LESLIE Wynne. Pt on continuous monitor. 0616 - Pt converted. Pt HR ranging from 98-106. Second EKG completed.
[2023-07-21] MEDS: ASPIRIN 81 MG CHEWABLE TABLET 324 MG PO (06:39)
[2023-07-21 06:41] LABS: Anion Gap 13 mmol/L (8-16); Blood Urea Nitrogen 17 mg/dL (9-20); Carbon Dioxide 18 mmol/L (22-30); Chloride 110 mmol/L (98-107); Potassium 4.1 mmol/L (3.4-5.0); Sodium 141 mmol/L (137-145)
[2023-07-21 06:42] LABS: Alanine Aminotransferase 24 U/L (6-50); Albumin Level 4.3 g/dL (3.5-5.1); Alkaline Phosphatase 67 U/L (38-126); Aspartate Amino Transferase 23 U/L (17-59); Bilirubin,Total 0.5 mg/dL (0.2-1.3); Calcium 9.5 mg/dL (8.4-10.2); Estimated CRCL calculation 84 ml/min; Estimated Glomerular Filt Rate > 60; Glucose 184 mg/dL (65-110); Lipase 219 U/L (23-300); Prothrombin Time 13.7 Seconds (11.1-14.7)
[2023-07-21 06:43] LABS: Magnesium 1.4 mg/dL (1.6-2.3)
[2023-07-21 06:53] LABS: Troponin I < 0.012 ng/mL (0.000-0.034)
[2023-07-21] MEDS: MAGNESIUM SULF 2 GM/WATER 50ML 2 GM/50 ML BAG IVPB (07:06)
== END 2023-07-21 08:14 | disposition home or self-care (01) ==
PROVIDERS: Emergency Provider Emergency Medicine; PCP Family Medicine
DX: I47.10 Supraventricular tachycardia, unspecified (principal); E83.42 Hypomagnesemia; I10 Essential (primary) hypertension; E11.9 Type 2 diabetes mellitus without complications; E78.5 Hyperlipidemia, unspecified; E88.810 Metabolic syndrome; E66.01 Morbid (severe) obesity due to excess calories; Z68.35 Body mass index [BMI] 35.0-35.9, adult; G47.33 Obstructive sleep apnea (adult) (pediatric); F17.210 Nicotine dependence, cigarettes, uncomplicated; Z87.442 Personal history of urinary calculi; Z79.82 Long term (current) use of aspirin; Z79.85 Long-term (current) use of injectable non-insulin antidiabetic drugs; Z79.84 Long term (current) use of oral hypoglycemic drugs; I45.10 Unspecified right bundle-branch block; R94.31 Abnormal electrocardiogram [ECG] [EKG]; R91.8 Other nonspecific abnormal finding of lung field
CPT/HCPCS: 36415; 71045; 80053; 83690; 83735; 84484; 85025; 85610; 85730; 93005; 96361; 96365; 96375; 99284; A9270; J0153; J3475; J7030

== ENCOUNTER 2023-08-01 19:58 | Emergency (ER) | payer OTHER, SELFPAY ==
[2023-08-01] VITALS (13 sets, daily range): BP systolic 106–152; BP diastolic 68–98; PULSE 92–214; RESP 13–20; TEMP 35.9; O2SAT 97–100
--- NOTE | ~2023-08-01 | XR_ITS ---
EXAMINATION: XR chest 1V portable INDICATION: Chest pressure TECHNIQUE: Portable AP chest at 2056 hours COMPARISON: 07/21/2023 FINDINGS: There is mild diffuse interstitial pattern. No pleural effusion or pneumothorax. The cardio mediastinal silhouette is normal. IMPRESSION: 1. Diffuse interstitial pattern, likely mild pulmonary edema. Reviewed, dictated and finalized at location F. YIST
--- NOTE | 2023-08-01 20:06 | PC.NURSE ---
Attempted oral temp due to low temporal, but did not register.
--- NOTE | 2023-08-01 20:07 | ECG_ITS ---
Measurements Intervals [place] Rate: 206 P: NE: 0 QRS: -75 QRSD: 117 T: 64 QT: 222 QTc: 411 Interpretive Statements WIDE COMPLEX TACHYCARDIA, CONSIDER SUPRAVENTRICULAR TACHYCARDIA LEFT AXIS DEVIATION RIGHT BUNDLE BRANCH BLOCK INFERIOR INFARCT, AGE INDETERMINATE ANTEROLATERAL INFARCT, AGE INDETERMINATE BASELINE WANDER- V1-V6 ABNORMAL ECG COMPARED TO ECG 07/21/2023 06:12:55 NO SIGNIFICANT CHANGES Electronically Signed On 08-02-2023 6:25:15 SCIENTIFIC GLASS BLOWER by Wai Bernal D.O.
--- NOTE | 2023-08-01 20:22 | ECG_ITS ---
Measurements Intervals [place] Rate: 104 P: 32 ND: 156 QRS: -73 QRSD: 129 T: 48 QT: 348 QTc: 458 Interpretive Statements SINUS TACHYCARDIA VENTRICULAR PREMATURE COMPLEXES LEFT AXIS DEVIATION RIGHT BUNDLE BRANCH BLOCK CONSIDER ANTEROLATERAL INFARCT, AGE INDETERMINATE INFERIOR INFARCT, AGE INDETERMINATE BASELINE WANDER- II, III ABNORMAL ECG COMPARED TO ECG 08/01/2023 20:05:55 SINUS TACHYCARDIA NOW PRESENT Electronically Signed On 08-02-2023 6:26:41 STONE CIRCULAR SAWYER by Wai Bernal D.O.
--- NOTE | 2023-08-01 20:30 | PC.NURSE ---
Pt brought back to room @2009. Pts HR 198 when put on night monitor. Pt hooked to continuous EKG, and [place]. Dr. Latif at bedside. Pt a&ox4 through entirety of event. Vagal maneuvers preformed on pt with provider at beside @2022. Pt successfully converted to sinus tach with one attempt of Vagal maneuvers. repeat EKG taken @[address] Latif. No further orders at this time. Pt now has no c/o chest tightness, SOB, palpitations. Pt Hr currently 96.
[2023-08-01 20:31] LABS: Basophils Absolute Auto 0.1 K/mm3 (0.0-0.1); Basophils Percent Auto 0.6 % (0.2-1.2); Eosinophils Absolute Auto 0.4 K/mm3 (0-0.3); Eosinophils Percent Auto 3.1 % (0-4.4); Hematocrit 43.3 % (42.0-52.0); Immature Granulocyte Absolute 0.06 K/mm3 (0.00-0.031); Immature Granulocyte Percent A 0.5 % (0-0.5); Lymphocytes Absolute Auto 5.96 K/mm3 (0.9-3.2); Mean Corpuscular HGB Conc 32.3 g/dl (32-36); Mean Corpuscular Hemoglobin 30.8 pg (26-34); Mean Corpuscular Volume 95.4 fl (80-100); Mean Platelet Volume 9.4 fl (7.4-10.4); Monocytes Absolute Auto 1.3 K/mm3 (0.1-0.6); Monocytes Percent Auto 10.2 % (2.6-8.5); Neutrophils Absolute Auto 4.7 K/mm3 (1.3-6.7); Neutrophils Percent Auto 37.6 % (45.5-73.1); Platelet Count Result 360 k/mm3 (150-375); Red Blood Count 4.54 M/mm3 (4.6-6.20); Red Cell Distribution Width 12.5 % (11.5-14.5); White Blood Count 12.4 K/mm3 (4.5-10.0)
--- NOTE | 2023-08-01 20:35 | ED.ARRPALP ---
HPI - Arrhythmia/Palpitations General Chief Complaint: Arrhythmia/Palpitations Stated Complaint: SVT? Time Seen by Provider: 08/01/23 20:31 Source: patient and family Limitations: no limitations History of Present Illness HPI narrative: Patient is a 67-year-old male presents to the emergency department complaining of SVT. Patient states when he reveals an SVT he typically gets some chest tightness around 7:00 p.m. he felt this incontinence heart rate was high consistent with his history of a CT any tried vagal maneuvers including ice bath and bearing down and was able to get his heart rate down to the 109/1 right back up. Patient states that he is scheduled for an ablation tomorrow at [facility] and was told not to take his metoprolol before this and so he has not taken any metoprolol for the past approximately 36 hours and which he was normally taking 100 mg of metoprolol daily in the morning. Patient denies any pain at this time. Patient denies difficulty breathing, recent illness, recent injuries, illicit drug use, alcohol use, history of thyroid abnormalities, diarrhea, vomiting, numbness, weakness. Related Data Home Medications Medication Instructions Recorded Confirmed aspirin 81 mg tablet,delayed 81 mg PO DAILY 07/27/19 04/25/23 release (Adult Low Dose Aspirin) efvcnjgj-rn-vevpc 300 mcg-K 60 1 tablet PO DAILY 06/22/20 04/25/23 mcg-lycop 600 mcg-lutein 300 mcg tablet (Centrum Silver Men) Glucosamine Chondroitin 2 cap PO DAILY 02/07/21 04/25/23 Allergies Allergy/AdvReac Type Severity Reaction Status Date / Time No Known Allergies Allergy Verified 07/21/23 06:16 Review of Systems Review of Systems: A 10 system review of systems was completed on the patient and is negative except for what is stated in the HPI. Nursing and ancillary documentation was reviewed. [facility] Past Medical History Medical History Benign essential hypertension History of paroxysmal supraventricular tachycardia Hyperlipidemia LDL goal <100 Leukocytosis Metabolic syndrome Morbid obesity Obstructive sleep apnea CPAP Retained ureteral stent Right renal stone Right ureteral stone Tobacco use Type 2 diabetes mellitus with hyperglycemia Family History Family History Sibling Patient's sister is in good health Patient's brother is in good health Father Family history of cardiovascular disease, Onset Age: 80 Family history of lung disease Hypertension History of stroke Carcinoma of colon Mother Family history of cardiovascular disease, Onset Age: 90 Heart disease unsure of type of heart disease Social History Social History Smoking packs per day: 3 Smoking cigarettes per day: 60.0 Years smoked: 50 Smoking pack-years: 150.00 Smoking status: Former smoker Tobacco type: cigarettes Second hand tobacco smoke exposure: Yes Additional smoking assessment comments: STATES CURRENTLY SMOKES ABOUT 5 CIGARETTES A DAY Alcohol intake: former Alcohol use details: SOCIALLY YEARS AGO Substance use: never Substance use type: does not use Living arrangements: with family Additional living arrangements comments: Gender identity (if verbalized by the patient): Male Sexual Orientation (if Verbalized by the Patient): Straight or Heterosexual Spiritual care concerns: No Agree to blood products: Yes Comments At time of signature, I have reviewed and agree with nursing past medical, surgical, social and family history unless otherwise noted. Please see the nursing chart for further information. There is no relevant family history pertinent to the presenting complaint. Exam Narrative: CONST: No acute distress. Well nourished. HENMT: Head is normocephalic and atraumatic. Moist
[2023-08-01] MEDS: SODIUM CHLORIDE 0.9% IV 1,000 ML 999 ML IV CONT (20:43)
[2023-08-01 20:45] LABS: Alanine Aminotransferase 31 U/L (6-50); Albumin Level 4.6 g/dL (3.5-5.1); Alkaline Phosphatase 71 U/L (38-126); Anion Gap 13 mmol/L (8-16); Aspartate Amino Transferase 28 U/L (17-59); Bilirubin,Total 0.5 mg/dL (0.2-1.3); Blood Urea Nitrogen 22 mg/dL (9-20); Calcium 10.1 mg/dL (8.4-10.2); Carbon Dioxide 21 mmol/L (22-30); Chloride 106 mmol/L (98-107); Estimated CRCL calculation 81 ml/min; Estimated Glomerular Filt Rate > 60; Glucose 160 mg/dL (65-110); Magnesium 1.4 mg/dL (1.6-2.3); Potassium 4.5 mmol/L (3.4-5.0); Sodium 140 mmol/L (137-145)
[2023-08-01] MEDS: MAGNESIUM SULF 2 GM/WATER 50ML 2 GM/50 ML BAG IVPB (21:10)
== END 2023-08-01 22:35 | disposition home or self-care (01) ==
PROVIDERS: Emergency Provider Student in an Organized Health Care Education/Training Program; PCP Family Medicine
DX: I47.10 Supraventricular tachycardia, unspecified (principal); E83.42 Hypomagnesemia; I10 Essential (primary) hypertension; E78.5 Hyperlipidemia, unspecified; E11.9 Type 2 diabetes mellitus without complications; E88.810 Metabolic syndrome; E66.01 Morbid (severe) obesity due to excess calories; Z68.42 Body mass index [BMI] 45.0-49.9, adult; G47.33 Obstructive sleep apnea (adult) (pediatric); F17.210 Nicotine dependence, cigarettes, uncomplicated; Z87.442 Personal history of urinary calculi; Z79.85 Long-term (current) use of injectable non-insulin antidiabetic drugs; Z79.82 Long term (current) use of aspirin; I45.10 Unspecified right bundle-branch block; R94.31 Abnormal electrocardiogram [ECG] [EKG]
CPT/HCPCS: 36415; 71045; 80053; 83735; 85025; 93005; 96361; 96365; 99284; J3475; J7030

== ENCOUNTER 2024-01-08 13:29 | Outpatient (CLI) | payer OTHER, SELFPAY ==
--- NOTE | ~2024-01-08 | XR_ITS ---
EXAMINATION: XR knee LT min 4V DATE: 01/08/2024 13:59 INDICATION: Bilateral primary osteoarthritis of knee. TECHNIQUE: 4 views of left knee including weight-bearing views were obtained. COMPARISON: None. FINDINGS: There is varus attenuation the knee. No fracture. There is severe osteoarthritis of medial and patellofemoral compartments and moderate osteoarthritis of lateral compartment. No knee joint eff usion. IMPRESSION: 1. Severe left knee osteoarthritis. Reviewed, dictated and finalized at location A.
--- NOTE | ~2024-01-08 | XR_ITS ---
XR knee RT min 4V Ordering provider: Fili You MD History: . M17.0 - Bilateral primary osteoarthritis of knee, PAIN. F/U . Comparison: March 11, 2019 FINDINGS: BONES: No acute fracture or dislocation. JOINT SPACES: Narrowing of the medial compartment suggestive of osteoarthritic changes. Osteophytes a re also seen in the patella. SOFT TISSUES: Normal. IMPRESSION: No acute osseous abnormality right knee. Severe osteoarthritic changes. Reviewed, dictated and finalized at location A.
== END 2024-01-08 13:30 | disposition home or self-care (01) ==
PROVIDERS: PCP Family Medicine; Visit Provider Orthopaedic Surgery
DX: M17.0 Bilateral primary osteoarthritis of knee (principal)
CPT/HCPCS: 73564

== ENCOUNTER 2024-09-07 15:13 | Outpatient (CLI) | payer OTHER, SELFPAY ==
[2024-09-07 19:26] LABS: Basophils Absolute Auto 0.1 K/mm3 (0.0-0.1); Basophils Percent Auto 0.6 % (0.2-1.2); Eosinophils Absolute Auto 0.4 K/mm3 (0-0.3); Eosinophils Percent Auto 4.6 % (0-4.4); Hematocrit 40.3 % (42.0-52.0); Hemoglobin 13.1 g/dL (14.0-18.0); Immature Granulocyte Absolute 0.02 K/mm3 (0.00-0.031); Immature Granulocyte Percent A 0.2 % (0-0.5); Lymphocytes Absolute Auto 3.81 K/mm3 (0.9-3.2); Lymphocytes Percent Auto 44.7 % (18.3-44.2); Mean Corpuscular HGB Conc 32.5 g/dl (32-36); Mean Corpuscular Hemoglobin 31.6 pg (26-34); Mean Corpuscular Volume 97.1 fl (80-100); Monocytes Absolute Auto 0.8 K/mm3 (0.1-0.6); Monocytes Percent Auto 9.5 % (2.6-8.5); Neutrophils Absolute Auto 3.4 K/mm3 (1.3-6.7); Neutrophils Percent Auto 40.4 % (45.5-73.1); Platelet Count Result 258 k/mm3 (150-375); Red Blood Count 4.15 M/mm3 (4.6-6.20); Red Cell Distribution Width 12.7 % (11.5-14.5); White Blood Count 8.5 K/mm3 (4.5-10.0)
[2024-09-07 20:04] LABS: Alanine Aminotransferase 36 U/L (6-50); Albumin Level 4.5 g/dL (3.5-5.1); Alkaline Phosphatase 52 U/L (38-126); Anion Gap 10 mmol/L (4-12); Aspartate Amino Transferase 47 U/L (17-59); Bilirubin,Total 0.5 mg/dL (0.2-1.3); Blood Urea Nitrogen 25 mg/dL (9-20); Calcium 10.2 mg/dL (8.4-10.2); Carbon Dioxide 28 mmol/L (22-30); Chloride 104 mmol/L (98-107); Estimated Glomerular Filt Rate > 60; Glucose 107 mg/dL (65-110); Potassium 4.9 mmol/L (3.4-5.0); Sodium 142 mmol/L (137-145)
[2024-09-07 20:20] LABS: Creatinine Urine 210.3 mg/dL
[2024-09-07 20:23] LABS: MALB Creatinine Ratio 236.2 mg/g (0-30); Microalbumin Urine Random 496.8 mg/L (0-16.7)
[2024-09-07 20:26] LABS: Prostate Specific Antigen 0.8 ng/mL (< OR = 4.0)
== END 2024-09-07 15:14 | disposition home or self-care (01) ==
PROVIDERS: PCP Clinical Nurse Specialist; Visit Provider Clinical Nurse Specialist
DX: E11.65 Type 2 diabetes mellitus with hyperglycemia (principal); D72.829 Elevated white blood cell count, unspecified; E88.819 Insulin resistance, unspecified; I10 Essential (primary) hypertension; Z12.5 Encounter for screening for malignant neoplasm of prostate
CPT/HCPCS: 36415; 80053; 82043; 82607; 83036; 84153; 85025; G0103

== ENCOUNTER 2024-10-15 12:04 | Emergency (ER) | payer OTHER, SELFPAY ==
--- OUTSIDE RECORDS SUMMARY | 2024-10-15 12:34 | XMS_ITS | Referral Summary ---
Author Organization [facility] [address] Address [address] [place] [address] Care Team Providers Care Component Inspector Name Role Phone Dana Td ROWE Primary Care Provider [phone] Allergies No known active allergies Medications metFORMIN XR (GLUCOPHAGE XR) 500 mg 24 hr tablet Take 2 tablets (1,000 mg total) by mouth 2 (two) times a day 1 Active atorvastatin (LIPITOR) 10 mg tablet Take 1 tablet (10 mg total) by mouth every morning 1 Active meloxicam (MOBIC) 15 mg tablet Take 1 tablet (15 mg total) by mouth daily 1 Active multivitamin capsule Take 1 capsule by mouth daily Active aspirin 81 mg enteric coated tablet Take 1 tablet (81 mg total) by mouth daily Active cetirizine 10 mg capsule Take 1 tablet by mouth nightly Active glucosamine-chond roitin 500-400 mg tablet Take 2 tablets by mouth daily Active cyanocobalamin (Vitamin B-12) 500 mcg tabletIndications :Prevention of Vitamin B12 Deficiency Take 1 tablet (500 mcg total) by mouth daily Active semaglutide (OZEMPIC) 1 mg/dose (2 mg/1.5 mL) pen injector injection Inject 1 mg under the skin once a week Take on 3 Active Contour Next Test Strips strip USE TO CHECK BLOOD SUGAR 3 TIMES DAILY 4 Active TRUEplus Lancets 28 gauge misc USE TO CHECK GLUCOSE 3 TIMES DAILY 3 Active lisinopriL (PRINIVIL,ZESTRIL ) 20 mg tablet 4 Active magnesium oxide 400 mg magnesium capsule Take 1 capsule by mouth daily Active metoprolol XL (TOPROL-XL) 50 mg extended release tabletIndications :Essential hypertension Take 1 tablet (50 mg total) by mouth daily 30 tablet 11 Active Active Problems Problem Noted Date Diagnosed Date SVT (supraventricular tachycardia) 08/02/2023 Morbid (severe) obesity due to excess calories 0 09/11/2022 Body mass index (BMI) 45.0-49.9, adult PSVT (paroxysmal supraventricular tachycardia) 0 08/30/2021 Essential hypertension 08/30/2021 Hyperlipidemia associated with type 2 diabetes m ellitus 08/30/2021 Tobacco use 08/30/2021 Social History Tobacco Use Types Packs/Day Years Used Date Smoking Tobacco: Former Cigarettes Q uit: 2022 Smokeless Tobacco: Never Tobacco Cessation:Counseling Given: Not Answered Personal Safety Answer Date Recorded Have you ever been in or are you currently in a harmful physical or emotional relationship or is someone making you feel afraid or unsafe? Denies 08/14/2023 Sex and Gender Information Value Date Recorded Sex Assigned at Not on file Legal Sex Male 12:38 AM MARSHMALLOW MAKER Gender Identity Not on file Sexual Orientation Not on file Last Filed Vital Signs Vital Sign Reading Time Taken Comments Blood Pressure 118/70 10/18/2023 2:18 PM CDT Pulse 79 10/18/2023 2:18 PM CDT Temperature 36.1 C (97 F) 08/14/2023 10:20 AM MARSHMALLOW MAKER Respiratory Rate 18 09/10/2023 8:41 AM MARSHMALLOW MAKER Oxygen Saturation 95% 10/18/2023 2:18 PM CDT Inhaled Oxygen Concentration - - Weight 131.5 kg (290 lb) 10/18/2023 2:18 PM CDT Height 170.2 cm (5' 7 ) 10/18/2023 2:18 PM CDT Body Mass Index 45.42 10/18/2023 2:18 PM CDT Plan of Treatment Not on file Medical Devices Implanted Type Area Reel Cart Operator Device Identifier Shelf Expiration Date Model / Serial / Lot [employer]andy Vascade Mvp 6-12fr Venous Closure [id number] - [id number] Implanted:Qty: 1 on 08/14/2023 by Tono Morris MD at [facility] 05/15/2025 800-612C-1 [id number] / / [id number] [facility] [employer] Vascade Mvp 6-12fr Venous Closure [id number] - [id number] Implanted:Qty: 1 on 08/14/2023 by Tono Morris MD at [facility] 05/15/2025 800-612C-1 [id number] / / [id number] [facility] Medical [facility] Device Vascular Closure Femoral Artery Bioabsorbable Dual Method Vascade 6-7fr Collagen [id number] - [id number] Implanted:Qty: 1 on 08/14/2023 by Tono Morris MD at [facility] 04/24/2025 700-580I-0 [id number] / / [id number] Procedures Procedure Name Priority Date/Time Associated Diagnosis Comments POCT LIPID PANEL Routine 10/18/2023 2:22 PM CDT Hyperlipidemia associated with type 2 diabetes mellitus (HCC) BASIC METABOLIC PANEL Routine 07/31/2023 2:10 PM MARSHMALLOW MAKER PSVT (paroxysmal supraventricular tachycardia) Pre-procedure lab exam from Last 3 Months or Most Recently Relevant to Health Maintenance Results * POCT lipid panel (10/18/2023 2:22 PM CDT) Cholesterol, POC 140 mg/dL HDL, POC 39 mg/dL Triglycerides, POC 258 mg/dL LDL Cholesterol POC 49 mg/dL Chol/HDL Ratio, POC 1.3 Non-HDL Cholesterol, POC 101 mg/dL Cholesterol Total, POC 140 mg/dL Capillary blood 10/18/2023 2 :22 PM CDT Yanna Parker NP POINT OF CARE TEST ORDERA BLES Final Result * (ABNORMAL) Basic metabolic panel (07/31/2023 2:10 PM MARSHMALLOW MAKER) Glucose 156(H) 65 - 139 mg/dL [facility] Comment: Non-fasting reference interval BUN 21 7 - 25 mg/dL [facility] Creatinine 1.07 0.70 - 1.35 mg/dL [facility] eGFR 75 > OR = 60 mL/min/1.7 3m2 [facility] BUN/creat ratio SEE NOTE: (calc) [facility] Comment: Not Reported: BUN and Creatinine are within reference range. Sodium 139 135 - 146 mmol/L [facility] Potassium, pl 4.9 3.5 - 5.3 mmol/L [facility] Chloride 104 98 - 110 mmol/L [facility] CO2 25 20 - 32 mmol/L [facility] Calcium 10.2 8.6 - 10.3 mg/dL [facility] Blood 07/31/2023 2:10 PM MARSHMALLOW MAKER 07/31/2023 2:10 PM MARSHMALLOW MAKER Narrative [facility] - 08/01/2023 6:22 AM MARSHMALLOW MAKER FASTING:NO FASTING: NO Tono Morris MD LAB BLOOD ORDERABLES F inal Result [facility] [address] [place] [address] from Last 3 Months or Most Recently Relevant to Health Maintenance Insurance [facility] [place] [address] [facility] ADVANTAGE CHOICE PPO Care Teams Component Inspector Relationship Specialty Start Date End Date Td Cortez DO PCP - General Family Medicine 09/11/22
--- OUTSIDE RECORDS SUMMARY | 2024-10-15 12:34 | XMS_ITS | Clinical Summary ---
Author Organization [facility] [address] Address [address] [place] [address] Care Team Providers Care Learning And Development Associate Name Role Phone DanaTd Primary Care Provider [phone] Allergies No known active allergies Medications metFORMIN [...] total) by mouth daily 30 tablet 11 4 Active Active Problems Problem Noted Date Diagnosed Date SVT (supraventricular tachycardia) 08/02/2023 Morbid (severe) obesity due to excess calories 0 09/11/2022 Body mass index (BMI) 45.0-49.9, adult PSVT (paroxysmal supraventricular tachycardia) 0 08/30/2021 Essential hypertension 08/30/2021 Hyperlipidemia associated with type 2 diabetes m ellitus 08/30/2021 Tobacco use 08/30/2021 Surgical History Surgery Date Site/Laterality Comments KIDNEY STONE SURGERY Medical History Medical History Date Comments Diabetes mellitus (HCC) Hypertension Sleep apnea Supraventricular tachycardia PSVT (paroxysmal supraventricular tachycardia) Type 2 diabetes mellitus (HCC) Family History Medical History Relation Name Comments Heart disease Father Lung disease Father Heart disease Mother Relation Name Status Comments Father (Age 84) Mother (Age 92) Social History Tobacco Use Types Packs/Day Years [...] on file Legal Sex Male 12:38 AM YEAST WASHER Gender Identity Not on file Sexual Orientation Not on file Obstetrics History Last Filed Vital Signs Vital Sign Reading Time Taken Comments Blood Pressure 118/70 10/18/2023 2:18 PM CDT Pulse 79 10/18/2023 2:18 PM CDT Temperature 36.1 C (97 F) 08/14/2023 10:20 AM YEAST WASHER Respiratory Rate 18 09/10/2023 8:41 AM YEAST WASHER Oxygen Saturation 95% 10/18/2023 2:18 PM CDT Inhaled Oxygen Concentration - - Weight 131.5 kg (290 lb) 10/18/2023 2:18 PM CDT Height 170.2 cm (5' 7 ) 10/18/2023 2:18 PM CDT Body Mass Index 45.42 10/18/2023 2:18 PM CDT Plan of Treatment Health Maintenance Due Date Last Done Comments Albumin Creatinine Ratio, Urine 1953 Colon Cancer Screening-Colonoscopy 1953 Depression Screening 1953 Hemoglobin A1C 1953 Hepatitis C Screening 1953 Dilated Eye Exam 1953 Foot Exam 1953 DTaP/Tdap/Td Vaccine (1 - Tdap) 1964 Hepatitis B Screening 1971 Pneumococcal vaccine 65+ (1 of 2 - PCV) 1972 Zoster Vaccine (1 of 2) 2003 Abdominal Aortic Aneurysm (A AA) Screen 2018 Well Visit 65+ 2018 Covid-19 Vaccine ( season) 2024, 09/08/2020 Influenza Vaccine (#1) 2024 eGFR 07/31/2024 07/31/2023 Fall Risk Assessment 08/14/2024 08/14/2023 Lipid Panel 10/17/2024 10/18/2023, 08/16, 03/02/2021 Medical Devices Implanted Type Area Train Conductor Device Identifier Shelf Expiration Date Model / Serial / Lot [facility] [employer] [facility] Vascade Mvp 6-12fr Venous Closure [id number] - [id number] Implanted:Qty: 1 on 08/14/2023 by Tono Morris MD at [facility] 05/15/2025 800-612C-1 0U / / [id number] [facility] Medical Inc Vascade Mvp 6-12fr Venous Closure [id number] - [id number] Implanted:Qty: 1 on 08/14/2023 by Tono Morris MD at [facility] 05/15/2025 800-612C-1 0U / / [id number] [facility] Device Vascular Closure Femoral Artery Bioabsorbable Dual Method Vascade 6-7fr Collagen [id number] - [id number] Implanted:Qty: 1 on 08/14/2023 by Tono Morris MD at [facility] 04/24/2025 700-580I-0 5U / / [id number] Procedures Procedure Name Priority Date/Time Associated Diagnosis Comments POCT LIPID PANEL Routine 10/18/2023 2:22 PM CDT Hyperlipidemia associated with type 2 diabetes mellitus (HCC) BASIC METABOLIC PANEL Routine 07/31/2023 2:10 PM YEAST WASHER PSVT (paroxysmal supraventricular tachycardia) Pre-procedure lab exam [...] (ABNORMAL) Basic metabolic panel (07/31/2023 2:10 PM YEAST WASHER) Glucose 156(H) 65 - 139 mg/dL [facility] Comment: Non-fasting reference interval BUN 21 7 - 25 mg/dL [facility] Creatinine 1.07 0.70 - 1.35 mg/dL [facility] eGFR 75 > OR = 60 mL/min/1.7 3m2 [facility] BUN/creat ratio SEE NOTE: 6 - 22 (calc) [facility] Comment: Not Reported: [...] [facility] Blood 07/31/2023 2:10 PM YEAST WASHER 07/31/2023 2:10 PM YEAST WASHER Narrative [facility] - 08/01/2023 6:22 AM YEAST WASHER FASTING:NO FASTING: NO Tono Morris MD LAB BLOOD ORDERABLES F inal Result [facility] [address] [place] [address] from Last 3 Months or Most Recently Relevant to Health Maintenance Insurance [facility] Member Subscriber Plan / Payer (Ef fective 2020-Present) Name:Adi Estrella Relation to Subscriber:Self Name:Adi Estrella Payer ID:[id number] (NAIC) Type:MEDICARE RISK OTHER Address: [place] [id number] [facility] ADVANTAGE CHOICE O Care Teams Learning And Development Associate Relationship Specialty Start Date End Date Td Cortez DO PCP - General Family Medicine 09/11/22
[2024-10-15 13:05] VITALS: BP 132/73; PULSE 85; RESP 20; TEMP 36.8; O2SAT 93
--- NOTE | 2024-10-15 13:27 | ED_ITS ---
HPI - URI/Sore Throat General Chief Complaint: Upper Respiratory Infection Stated Complaint: Sinus Problem Time Seen by Provider: 10/15/24 13:27 Source: patient, RN notes reviewed and old records reviewed Mode of arrival: ambulatory Limitations: no limitations History of Present Illness HPI Narrative: 69-year-old male presents to the [facility] with a 3 day history of sinus drainage, scratchy throat and a cough. Denies fevers, denies chest pain, denies shortness of breath. Related Data Home Medications ?Medication ?Instructions ?Recorded ?Confirmed ?Last Taken ?Type aspirin 81 mg tablet,delayed 81 mg PO DAILY 07/27/19 09/07/24 07/24/21 History release (Adult Low Dose Aspirin) Glucosamine Chondroitin 2 cap PO DAILY 02/07/21 09/07/24 07/24/21 History metoprolol succinate 50 mg 50 mg PO DAILY 11/26/23 09/07/24 Unknown History tablet,extended release 24 hr acetaminophen 500 mg tablet 500 mg PO Q8H PRN 09/07/24 09/07/24 Unknown History cetirizine 10 mg capsule (Zyrtec) 10 mg PO DAILY PRN 09/07/24 09/07/24 Unknown History mecobalamin (vitamin B12) 1,000 1,000 mcg PO DAILY 09/07/24 09/07/24 Unknown History mcg chewable tablet multivitamin (One-A-Day Essential 1 tablet PO DAILY 09/07/24 09/07/24 Unknown History tablet) semaglutide 1 mg/dose (4 mg/3 mL) 1 mg subcut WEEKLY 09/07/24 09/07/24 Unknown History subcutaneous pen injector (Ozempic) Allergies Allergy/AdvReac Type Severity Reaction Status Date / Time No Known Allergies Allergy Verified 09/07/24 14:30 Review of Systems Review of Systems: All systems reviewed & are unremarkable except as noted in HPI and below Constitutional: Constitutional: Reports no additional constitutional complaints ENT: Reports as per HPI, Reports post nasal drip and Reports sore throat Cardiovascular: Cardiovascular: Reports no additional cardiovascular complaints, Denies chest pain and Denies dyspnea Respiratory: Respiratory: Reports as per HPI, Denies chest congestion, Reports cough and Denies dyspnea Musculoskeletal: Musculoskeletal: Reports no additional musculoskeletal complaints Integumentary/Breasts: Skin/Breast: Reports system reviewed and no additional complaints, except as docu PMFSH Past Medical History Medical History History of paroxysmal supraventricular tachycardia Retained ureteral stent Right renal stone Metabolic syndrome Tobacco use Leukocytosis Right ureteral stone Type 2 diabetes mellitus with hyperglycemia Benign essential hypertension Hyperlipidemia LDL goal <100 Morbid obesity Obstructive sleep apnea CPAP Surgical History Surgical History H/O cardiac radiofrequency ablation 07/2023 Family History Family History Sibling Patient's sister is in good health Patient's brother is in good health Father Family history of cardiovascular disease, Onset Age: 80 Family history of lung disease Hypertension History of stroke Carcinoma of colon Mother Family history of cardiovascular disease, Onset Age: 90 Heart disease unsure of type of heart disease Social History Social History Smoking packs per day: 3 Smoking cigarettes per day: 60.0 Years smoked: 50 Smoking pack-years: 150.00 Smoking status: Former smoker Tobacco type: cigarettes Second hand tobacco smoke exposure: Yes Smoking end date: 07/15/22 Alcohol intake: former Alcohol use details: SOCIALLY YEARS AGO Substance use: never Substance use type: does not use Living arrangements: with family Additional living arrangements comments: Gender identity (if verbalized by the patient): Male Sexual Orientation (if Verbalized by the Patient): Straight or Heterosexual Spiritual care concerns: No Agree to blood products: Yes Comments At the time of my signature, I reviewed and agree with the nursing past medical, surgical, social, and family history. There is no relevant family history pertinent to the patient complaint. Exam Const: General: cooperative, healthy appearing, comfortable, no acute distress, well developed, alert and well nourished Nutritional Appearance: well nourished Orientation/consciousness: patient oriented x3 Limitations: no limitations HENMT: Head: normal to inspection Ears: hearing grossly normal bilaterally, external ears normal, TM's normal bilaterally, EAC's normal, mastoids normal and no periauricular adenopathy Face/Nose/Sinus: Normal external nose present, Normal nares present and Nasal discharge present clear bilateral Mouth: Yes Normal oral and palatal mucosa present, Yes lip normal, Yes tongue normal and Yes moist mucous membranes Throat: posterior oropharynx normal, uvula midline, postnasal drainage and no uvular edema Eyes: General: appearance normal, both eyes and all related structures Alig nment and Position: alignment normal Neck: Neck: normal visual inspection, full ROM, no lymphadenopathy and no meningeal signs Chest: Chest palpation & inspection: normal inspection of the chest Resp: Effort & Inspection: normal respiratory effort and able to speak in complete sentences Auscultation: clear to auscultation bilaterally, no crackles, no rales, no rhonchi and no wheezes Cardio: Rate: regular rate Skin: General skin exam: normal color and no rashes or lesions noted Neuro: General: patient oriented x3, gait normal, moves all extremities and no meningeal signs Cognition (Neuro): normal cognition Speech: normal speech Gait exam (Neuro): Normal gait present Extrem: General: normal to inspection, full ROM, capillary refill normal and normal gait Psych: Appearance: grossly normal and well kempt Mental Status: mental status grossly normal Speech and movement: Normal speech and movement present and Clear speech present Affect: normal affect Attitude: cooperative Course Course Level of Care: Express Care Visit Vital Signs Vital signs: Vital Signs Temperature 98.3 F 10/15/24 13:05 Pulse Rate 85 10/15/24 13:05 Respiratory Rate 20 10/15/24 13:05 Blood Pressure 132/73 10/15/24 13:05 Pulse Oximetry 93 10/15/24 13:05 Oxygen Delivery Room Air 10/15/24 13:05 Temperature 98.3 F 10/15/24 13:05 Pulse Rate 85 10/15/24 13:05 Respiratory Rate 20 10/15/24 13:05 Blood Pressure 132/73 10/15/24 13:05 Pulse Oximetry 93 10/15/24 13:05 Oxygen Delivery Room Air 10/15/24 13:05 Reviewed MDM - URI/Sore Throat MDM Narrative Medical decision making narrative: Patient sitting comfortably in exam room. Nontoxic, vitals stable. Patient is in no acute distress. Patient presents with 3 day history of URI symptoms. Patient's flu COVID and strep were negative, will culture COVID. Most likely viral sinusitis. Patient appropriate for outpatient treatment with close follow-up Discharge instructions reviewed with patient, as well as provided in writing per nursing staff. The instructions also include specific and strict return/GO TO THE ER as well as f/u information. All questions have been answered, and the patient deny any further questions with discharge and discharge plan. Some parts of this dictation were generated by voice recognition software and may contain typographical and/or grammatical inaccuracies. Differential Diagnosis Differential diagnosis: Likely upper respiratory infection, otitis media, sinusitis, viral infection, bronchitis and influenza Lab Data Labs: Lab Results 10/15/24 Range/Units 13:30 POC Influenza A Ag Negative (Negative) POC Influenza B Ag Negative (Negative) POC SARS CoV-2 Ag Negative (Negative) POC Grp A Strep Screen Negative (Negative) Reviewed Critical Care Time Critical Care Time Critical Care Time: No Discharge Plan Discharge Clinical Impression: Post-nasal drainage Upper respiratory infection Qualifiers: URI type: unspecified viral URI Qualified Code(s): J06.9 - Acute upper respirat ory infection, unspecified Patient Disposition: Home, Self-Care Condition: Stable Instructions: Antibiotic Form, Upper Respiratory Infection (ED), Postnasal Drip (DC) Additional Instructions: Your rapid strep swab was negative today at [facility]. A throat culture will be sent to the laboratory for further testing. If the test is positive, you will receive a phone call within 48 hours and an appropriate antibiotic will be initiated at that time. Your rapid COVID test were negative Your rapid flu test was negative Your symptoms are likely due to a viral illness, which is not treated with antibiotics. Typically viral infections last 7-10 days, can linger for couple of weeks. It is very important to treat your symptoms. Drink plenty of water, Gatorade, Pedialyte, ice pops or Jell-O. -Alternate Tylenol and Motrin per package directions for fever or pain. You can alternate every 4 hours -Antihistamine medication such as Zyrtec/Claritin/Jeannine during the day can help improve symptoms. -doing daily nasal irrigations can help relieve pressure your sinuses. Things like a Neti pot -Use Flonase twice a day for 5 days then daily to help reduce the inflammation a nd dry up your sinuses. -You can also use Mucinex or Coricidin HBP. Be sure to drink plenty of water with this medication at least 8 ounces with every dose and it is important to drink 8 to 10 glasses of water per day. Water is a natural decongestant -Eat and drink things that are easy to swallow, like tea or soup, or popsicles. -Oral rinses such as: Salt water gargles and/or may use topical anesthetic (eg. Chloraseptic spray) or lozenges to relieve dryness or throat pain). -Frequent hand washing or hand stoneworking belt sander is one of the best ways to prevent spread of infection. -Using a vaporizer or humidifier at night will also help thin secretions and help with coughing up phlegm. -Follow up with primary care provider in 7-10 days if condition is not improving - For new or worsening symptoms go directly to the nearest ER Patient Language: Scottish Prescriptions: No Action aspirin [Adult Low Dose Aspirin] 81 mg tablet,delayed release (DR/EC) 81 mg PO DAILY metoprolol succinate 50 mg tablet extended release 24 hr 50 mg PO DAILY multivitamin [One-A-Day Essential] Tablet 1 tablet PO DAILY Ozempic 1 mg/dose (4 mg/3 mL) pen injector 1 mg subcut WEEKLY mecobalamin (vitamin B12) 1,000 mcg tablet,chewable 1,000 mcg PO DAILY acetaminophen 500 mg tablet 500 mg PO Q8H PRN Zyrtec 10 mg capsule 10 mg PO DAILY PRN Glucosamine Chondroitin 550 mg capsule 2 cap PO DAILY (DME) lancets [CareTouch Safety Lancets] 28 gauge misc See Rx Instructions .Route Qty: 100 5RF Rx Instructions: use to check BG 3 times daily (DME) Contour Next Test Strips Strip See Rx Instructions .ROUTE .MEDSUPPLY Qty: 300 3RF Rx Instructions: use to check BS 3 times daily (DME) pen needle, diabetic [Comfort EZ Pen [place]] 32 gauge x 5/32 needle See Rx Instructions .Route Qty: 100 0RF Rx Instructions: for use once weekly metformin 500 mg tablet extended release 24 hr See Rx Instructions .ROUTE .COMPLEX Qty: 360 1RF Dose Instruction: TAKE TWO (2) TABLETS WITH BREAKFAST AND TWO (2) TABLETS WITH DINNER BY MOUTH Rx Instructions: TAKE TWO (2) TABLETS WITH BREAKFAST AND TWO (2) TABLETS WITH DINNER BY MOUTH meloxicam 15 mg tablet See Rx Instructions .ROUTE .COMPLEX Qty: 90 1RF Dose Instruction: TAKE 1 TABLET BY MOUTH EVERY MORNING Rx Instructions: TAKE 1 TABLET BY MOUTH EVERY MORNING atorvastatin 10 mg tablet See Rx Instructions .ROUTE .COMPLEX Qty: 90 1RF Dose Instruction: TAKE 1 TABLET BY MOUTH EVERY DAY IN THE MORNING Rx Instructions: TAKE 1 TABLET BY MOUTH EVERY DAY IN THE MORNING lisinopril 20 mg tablet 20 mg PO DAILY Qty: 90 1RF Follow-up/Referrals: Shaun Duarte, [Primary Care Provider] - 2 Weeks ([facility] follow-up) Stand Alone Forms: Work/School Release IP Time of Disposition: 13:39
[2024-10-15 14:03] LABS: EDCOVIDSCREEN Negative (Negative); EDINFLUASCREEN Negative (Negative); EDINFLUBSCREEN Negative (Negative); EDSTREPNEGPOS1 Negative (Negative)
== END 2024-10-15 13:43 | disposition home or self-care (01) ==
PROVIDERS: Emergency Provider Nurse Practitioner; PCP Internal Medicine
DX: R09.82 Postnasal drip (principal); J06.9 Acute upper respiratory infection, unspecified; Z20.822 Contact with and (suspected) exposure to COVID-19; Z79.85 Long-term (current) use of injectable non-insulin antidiabetic drugs; Z87.891 Personal history of nicotine dependence; E11.9 Type 2 diabetes mellitus without complications; I10 Essential (primary) hypertension; E78.5 Hyperlipidemia, unspecified; E88.810 Metabolic syndrome; E66.01 Morbid (severe) obesity due to excess calories; Z68.42 Body mass index [BMI] 45.0-49.9, adult; G47.33 Obstructive sleep apnea (adult) (pediatric); Z79.82 Long term (current) use of aspirin
CPT/HCPCS: 87081; 87426; 87804; 87880; 99212; G0463

== ENCOUNTER 2024-12-09 08:41 | Outpatient (CLI) | payer OTHER, SELFPAY ==
--- OUTSIDE RECORDS SUMMARY | 2024-12-09 08:45 | XMS_ITS | Referral Summary ---
Author Organization [facility] [place] [address] [facility] [address] Address [address] [facility] [address] [place] [address] Care Team Providers Care Acquisition Analyst Name Role Phone Td Cortez Primary Care Provider [phone] Encounters Date Type Department Care Team Description 11/05/2024 10:30 AM CDT Office Visit [facility] Cardiology [address] [facility] [address] [place] [address] Isaura Phelan MD PSVT (paroxysmal supraventricular tachycardia) (Primary Dx); Essential hypertension; Hyperlipidemia associated with type 2 diabetes mellitus (HCC) from Last 3 Months Allergies No known active allergies Medications metFORMIN [...] (2 mg/1.5 mL) pen injector injection Inject 0.75 mL (1 mg total) under the skin once a week Take [...] tablet (50 mg total) by mouth daily 90 tablet 3 5 Active Active Problems Problem Noted Date Diagnosed Date SVT (supraventricular tachycardia) 08/02/2023 Morbid (severe) obesity due to excess calories 0 09/11/2022 Body mass index (BMI) 45.0-49.9, adult 3 PSVT (paroxysmal supraventricular tachycardia) 0 08/30/2021 Essential [...] on file Legal Sex Male 12:38 AM GEOPHYSICAL DATA TECHNICIAN Gender Identity Not on file Sexual Orientation Not on file Last Filed Vital Signs Vital Sign Reading Time Taken Comments Blood Pressure 124/64 11/05/2024 10:27 AM CDT Pulse 92 11/05/2024 10:27 AM CDT Temperature 36.1 C (97 F) 08/14/2023 10:20 AM GEOPHYSICAL DATA TECHNICIAN Respiratory Rate 18 09/10/2023 8:41 AM GEOPHYSICAL DATA TECHNICIAN Oxygen Saturation 96% 11/05/2024 10:27 AM CDT Inhaled Oxygen Concentration - - Weight 130.2 kg (287 lb) 11/05/2024 10:27 AM CDT Height 170.2 cm (5' 7) 11/05/2024 10:27 AM CDT Body Mass Index 44.95 11/05/2024 10:27 AM CDT Plan of Treatment Not on file Medical Devices Implanted Type Area It Instructor Device Identifier Shelf Expiration Date Model / Serial / Lot [facility] Vascade Mvp 6-12fr Venous Closure [id number] - [id number] Implanted:Qty: 1 on 08/14/2023 by Tono Morris MD at [facility] 05/15/2025 800-612C-1 0U / / [id number] [facility] Vascade Mvp 6-12fr Venous Closure [id number] - [id number] Implanted:Qty: 1 on 08/14/2023 by Tono Morris MD at [facility] 05/15/2025 800-612C-1 0U / / [id number] [facility] Device Vascular Closure Femoral Artery Bioabsorbable Dual Method Vascade 6-7fr Collagen [id number] - [id number] Implanted:Qty: 1 on 08/14/2023 by Tono Morris MD at [facility] 04/24/2025 700-580I-0 5U / / [id number] Procedures Procedure Name Priority Date/Time Associated Diagnosis Comments POCT LIPID PANEL Routine 11/05/2024 10:4 0 AM CDT Hyperlipidemia associated with type 2 diabetes mellitus (HCC) BASIC METABOLIC PANEL Routine 07/31/2023 2:10 PM GEOPHYSICAL DATA TECHNICIAN PSVT (paroxysmal supraventricular tachycardia) Pre-procedure lab exam from Last 3 Months or Most Recently Relevant to Health Maintenance Results * POCT lipid panel (11/05/2024 10:40 AM CDT) Cholesterol, POC 131 mg/dL Comment:GLU = 145 HDL, POC 37 mg/dL Triglycerides, POC 207 mg/dL LDL Cholesterol POC 52 mg/dL Chol/HDL Ratio, POC 1.4 Non-HDL Cholesterol, POC 93 mg/dL Cholesterol Total, POC 131 mg/dL Capillary blood 11/05/2024 1 0:40 AM CDT Isaura Phelan MD POINT OF CARE TEST ERICKA MELISSAMINI Final Result * (ABNORMAL) Basic metabolic panel (07/31/2023 2:10 PM GEOPHYSICAL DATA TECHNICIAN) Glucose 156(H) 65 - 139 mg/dL [facility] [...] [facility] Blood 07/31/2023 2:10 PM GEOPHYSICAL DATA TECHNICIAN 07/31/2023 2:10 PM GEOPHYSICAL DATA TECHNICIAN Narrative [facility] - 08/01/2023 6:22 AM GEOPHYSICAL DATA TECHNICIAN FASTING:NO FASTING: NO Tono Morris MD LAB BLOOD ORDERABLES F inal Result [facility] [address] [place] [address] from Last 3 Months or Most Recently Relevant to Health Maintenance Insurance [employer] PPO Care Teams Acquisition Analyst Relationship Specialty Start Date End Date Td Cortez DO PCP - General Family Medicine 09/11/22
--- OUTSIDE RECORDS SUMMARY | 2024-12-09 08:45 | XMS_ITS | Clinical Summary ---
Author Organization [facility] [place] [address] [facility] 162 Address [address] [facility] [address] [place] [address] Care Team Providers Care Business Systems Administrator Name Role Phone Td Cortez Primary Care Provider [phone] Allergies No known active allergies Medications metFORMIN [...] diabetes m ellitus 08/30/2021 Tobacco use 08/30/2021 Encounters Date Type Department Care Team Description 11/05/2024 10:30 AM CDT Office Visit [facility] Medical [facility] Cardiology [address] [place] [address] Isaura Phelan MD PSVT (paroxysmal supraventricular tachycardia) (Primary Dx); Essential hypertension; Hyperlipidemia associated with type 2 diabetes mellitus (HCC) from Last 3 Months Surgical History Surgery Date Site/Laterality Comments KIDNEY [...] on file Legal Sex Male 12:38 AM COMMODITY SUPERVISOR Gender Identity Not on file Sexual Orientation Not on file Obstetrics History Last Filed Vital Signs Vital Sign Reading Time Taken Comments Blood Pressure 124/64 11/05/2024 10:27 AM CDT Pulse 92 11/05/2024 10:27 AM CDT Temperature 36.1 C (97 F) 08/14/2023 10:20 AM COMMODITY SUPERVISOR Respiratory Rate 18 09/10/2023 8:41 AM COMMODITY SUPERVISOR Oxygen Saturation 96% 11/05/2024 10:27 AM CDT Inhaled Oxygen Concentration - - Weight 130.2 kg (287 lb) 11/05/2024 10:27 AM CDT Height 170.2 cm (5' 7) 11/05/2024 10:27 AM CDT Body Mass Index 44.95 11/05/2024 10:27 AM CDT Plan of Treatment Health Maintenance Due [...] 2018 Well Visit 65+ 2018 Covid-19 Vaccine (3 - 2023-2 5 season) 2024 09/29/2020, 09/08/2020 eGFR 07/31/2024 07/31/2023 Fall Risk Assessment 08/14/2024 08/14/2023 Influenza Vaccine (Season Ended) 2025 Lipid Panel 11/05/2025 11/05/2024, 04/11/2023, 09/11/2022, Additional history exists Medical Devices Implanted Type Area Brake Coupler Dinkey Device Identifier Shelf Expiration Date Model / Serial / Lot [facility] Vascade Mvp 6-12fr Venous Closure [id number] - [id number] Implanted:Qty: 1 on 08/14/2023 by Tono Morris MD at [facility] 05/15/2025 800-612C-1 0U / / [id number] 6D [facility] Vascade Mvp 6-12fr Venous Closure [id number] - [id number] Implanted:Qty: 1 on 08/14/2023 by Tono Morris MD at [facility] 05/15/2025 800-612C-1 0U / / [id number] [employer] Device Vascular Closure Femoral Artery Bioabsorbable Dual Method Vascade 6-7fr Collagen [id number] - [id number] Implanted:Qty: 1 on 08/14/2023 by Tono Morris MD at [facility] [employer] 04/24/2025 700-580I-0 5U / / [id number] Procedures Procedure Name Priority Date/Time Associated Diagnosis Comments POCT LIPID PANEL Routine 11/05/2024 10:4 0 AM CDT Hyperlipidemia associated with type 2 diabetes mellitus (HCC) BASIC METABOLIC PANEL Routine 07/31/2023 2:10 PM COMMODITY SUPERVISOR PSVT (paroxysmal supraventricular tachycardia) Pre-procedure lab exam [...] Capillary blood 11/05/2024 1 0:40 AM CDT [facility] Cherie Phelan MD POINT OF CARE TEST ERICKA ANGELA Final Result * (ABNORMAL) Basic metabolic panel (07/31/2023 2:10 PM COMMODITY SUPERVISOR) Glucose 156(H) 65 - 139 mg/dL [facility] Comment: Non-fasting reference interval BUN 21 7 - 25 mg/dL [facility] Creatinine 1.07 0.70 - 1.35 mg/dL [facility] eGFR 75 > OR = 60 mL/min/1.7 3m2 [facility] BUN/creat ratio SEE NOTE: 6 - (calc) [facility] Comment: Not Reported: [...] [facility] Blood 07/31/2023 2:10 PM COMMODITY SUPERVISOR 07/31/2023 2:10 PM COMMODITY SUPERVISOR Narrative [facility] - 08/01/2023 6:22 AM COMMODITY SUPERVISOR FASTING:NO FASTING: NO Tono Morris MD LAB BLOOD ORDERABLES F inal Result [facility] [address] [place] [address] from Last 3 Months or Most Recently Relevant to Health Maintenance Insurance Care Teams Business Systems Administrator Relationship Specialty Start Date End Date Td Cortez DO PCP - General Family Medicine 09/11/22
[2024-12-09 20:15] LABS: Creatinine Urine 93.2 mg/dL
[2024-12-09 20:16] LABS: Anion Gap 8 mmol/L (4-12); Blood Urea Nitrogen 25 mg/dL (9-20); Calcium 10.3 mg/dL (8.4-10.2); Carbon Dioxide 26 mmol/L (22-30); Chloride 106 mmol/L (98-107); Cholesterol 143 mg/dL (0-200); Estimated Glomerular Filt Rate > 60; Glucose 113 mg/dL (65-110); HDL Direct 43 mg/dL; Potassium 4.8 mmol/L (3.4-5.0); Sodium 140 mmol/L (137-145); Triglycerides 173 mg/dL (<150)
[2024-12-09 20:30] LABS: LDL Cholesterol Direct 56 mg/dL
[2024-12-09 20:38] LABS: Microalbumin Urine Random 329.9 mg/L (0-16.7)
[2024-12-09 20:39] LABS: Hemoglobin A1C 6.6 % (<5.7)
== END 2024-12-09 08:42 | disposition home or self-care (01) ==
LOC: ANHGOSHLAB 08:42
PROVIDERS: PCP Internal Medicine; Visit Provider Clinical Nurse Specialist
DX: E78.5 Hyperlipidemia, unspecified (principal); E11.9 Type 2 diabetes mellitus without complications; I10 Essential (primary) hypertension
CPT/HCPCS: 36415; 80048; 80061; 82043; 83036

== ENCOUNTER 2025-02-09 10:41 | Outpatient (CLI) | payer OTHER, SELFPAY ==
--- NOTE | ~2025-02-09 | US_ITS ---
EXAM: RENAL ULTRASOUND HISTORY: E11.29 - Type 2 diabetes mellitus with other diabetic kid... Proteinuria and hypertension COMPARISON: Reference is made to a CT examination of the abdomen and pelvis dated 09/24/2022 which dem onstrated multiple bulky stones within the right kidney and a single 8 mm calculus in the upper pole of the left FINDINGS: RIGHT KIDNEY: 18.5 x 8.5 x 6 cm. The parenchyma of the right kidney is increased in echogenicity. No hydronephrosis is present. 7 mm nonobstructing calculus within the upper pole of the right kidney. 13 mm nonobstructing calculus within the interpolar region of the right kidney. A single rounded anechoic focus is detected within the upper pole of the right kidney measuring 27 x 28 x 32 mm. This area was demonstrated the 2022 CT examination. No color flow interrogation was perfo rmed on the submitted ultrasound static images, rendering this examination limited. LEFT KIDNEY: 14.5 x 6.6 x 6.1 cm No hydronephrosis. The parenchyma of the left kidney is increased in echogenicity. A 15 mm nonobstructing calculus is identified within the upper pole of the left kidney IMPRESSION: Bilateral nonobstructing renal calculi. Signs suggesting medical renal disease. Likely a simple cyst within the upper pole of the right kidney, similar in size to the 2022 CT examin ation, however no color flow interrogation was performed on the submitted static images, rendering th is examination limited. Short-term follow-up dedicated renal ultrasound versus contrast-enhanced CT/MRI with renal mass shona col is recommended for confirmation of its benignity. Reviewed, dictated and finalized at location A. IMPRESSION: Bilateral nonobstructing renal calculi. Signs suggesting medical renal disease. Likely a simple cyst within the upper pole of the right kidney, similar in size to the 2022 CT examination, however no color flow interrogation was performed on the submitted static images, rendering this examination limited. Short-term follow-up dedicated renal ultrasound versus contrast-enhanced CT/MRI with renal mass protocol is recommended for confirmation of its benignity.
== END 2025-02-09 10:42 | disposition home or self-care (01) ==
PROVIDERS: PCP Internal Medicine; Visit Provider Internal Medicine Nephrology
DX: E11.29 Type 2 diabetes mellitus with other diabetic kidney complication (principal); N20.0 Calculus of kidney; R80.9 Proteinuria, unspecified; I10 Essential (primary) hypertension
CPT/HCPCS: 76775

== ENCOUNTER 2025-03-11 14:06 | Outpatient (CLI) | payer OTHER, SELFPAY ==
--- NOTE | ~2025-03-11 | XR_ITS ---
XR abdomen/kub 1V 03/11/2025 14:30 Indication: Renal stone Procedure: KUB Comparison: Comparison to multiple prior studies sequentially, with oldest reviewed study dated 09/11/2021. Findings: There are multiple bilateral renal stones with more in the right kidney and renal collecting system. There are also probable stones in the right ureter. Bowel gas pattern nonobstructive. No acute osseous abnormality. Impression: 1: Bilateral nephrolithiasis. Probable right proximal ureteral stones. Reviewed, dictated and finalized at location O. Impression: 1: Bilateral nephrolithiasis. Probable right proximal ureteral stones.
--- OUTSIDE RECORDS SUMMARY | 2025-03-11 14:12 | XMS_ITS | Clinical Summary ---
Author Organization [facility] [address] [place] [address] Care Team Providers Care Painter Apprentice Name Role Phone DanaTd Primary Care Provider [phone] Allergies No known active allergies Medications metFORMIN [...] total) by mouth daily 90 tablet 3 Active Active Problems Problem Noted Date Diagnosed [...] (paroxysmal supraventricular tachycardia) Type 2 diabetes mellitus Family History Medical History Relation Name Comments [...] on file Legal Sex Male 12:38 AM DIGITAL CONTENT MARKETING MANAGER Gender Identity Not on file Sexual Orientation Not on file Obstetrics History Last Filed Vital Signs Vital Sign Reading Time Taken Comments Blood Pressure 124/64 11/05/2024 10:27 AM CDT Pulse 92 11/05/2024 10:27 AM CDT Temperature 36.1 C (97 F) 08/14/2023 10:20 AM DIGITAL CONTENT MARKETING MANAGER Respiratory Rate 18 09/10/2023 8:41 AM DIGITAL CONTENT MARKETING MANAGER Oxygen Saturation 96% 11/05/2024 10:27 AM CDT [...] Fall Risk Assessment 08/14/2024 08/14/2023 Influenza Vaccine (#1) 2025 Lipid Panel 11/05/2025 11/05/2024, 04/0 11/2023, 09/11/2022, Additional history exists Medical Devices Implanted Type Area Shotgun Shell Loading Machine Operator Device Identifier Shelf Expiration Date Model / Serial / Lot [facility] Vascade Mvp 6-12fr Venous Closure [id number] - [id number] Implanted:Qty: 1 on 08/14/2023 by Tono Morris MD at [facility] 05/15/2025 800-612C-1 0U / / [id number] [facility] Vascade Mvp 6-12fr Venous Closure [id number] - [id number] Implanted:Qty: 1 on 08/14/2023 by Tono Morris MD at [facility] 05/15/2025 800-612C-1 0U / / [id number] [facility] Medical [facility] Device Vascular Closure Femoral Artery Bioabsorbable Dual Method Vascade 6-7fr Collagen [id number] - [id number] Implanted:Qty: 1 on 08/14/2023 by Tono Morris MD at [facility] 04/24/2025 700-580I-0 5U / / [id number] Procedures Procedure Name Priority Date/Time Associated Diagnosis Comments POCT LIPID PANEL Routine 11/05/2024 10:4 0 AM CDT Hyperlipidemia associated with type 2 diabetes mellitus (HCC) BASIC METABOLIC PANEL Routine 07/31/2023 2:10 PM DIGITAL CONTENT MARKETING MANAGER PSVT (paroxysmal supraventricular tachycardia) Pre-procedure lab exam [...] Capillary blood 11/05/2024 1 0:40 AM CDT [facility] Cherie Phelan MD POINT OF CARE TEST ERICKA ANGELA Final Result * (ABNORMAL) Basic metabolic panel (07/31/2023 2:10 PM DIGITAL CONTENT MARKETING MANAGER) Glucose 156(H) 65 - 139 mg/dL [facility] [...] [facility] Blood 07/31/2023 2:10 PM DIGITAL CONTENT MARKETING MANAGER 07/31/2023 2:10 PM DIGITAL CONTENT MARKETING MANAGER Narrative [facility] - 08/01/2023 6:22 AM DIGITAL CONTENT MARKETING MANAGER FASTING:NO FASTING: NO Tono Morris MD LAB BLOOD ORDERABLES F inal Result [facility] [address] [place] [address] from Last 3 Months or Most Recently Relevant to Health Maintenance Insurance [employer] PPO Care Teams Painter Apprentice Relationship Specialty Start Date End Date Td Cortez DO PCP - General Family Medicine 09/11/22
== END 2025-03-11 14:07 | disposition home or self-care (01) ==
PROVIDERS: PCP Clinical Nurse Specialist; Visit Provider Nurse Practitioner Family
DX: N20.0 Calculus of kidney (principal)
CPT/HCPCS: 74018

== ENCOUNTER 2025-03-25 10:24 | Outpatient (CLI) | payer OTHER, SELFPAY ==
--- NOTE | 2025-03-25 10:42 | ECG_ITS ---
Test Date: 2025-03-25 10:52:34 Measurements Intervals [place] Rate: 83 P: 42 IL: 174 QRS: -66 QRSD: 121 T: 14 QT: 355 QTc: 419 Interpretive Statements SINUS RHYTHM RIGHT BUNDLE BRANCH BLOCK [120+ ms QRS DURATION, UPRIGHT V1, 40+ ms S IN I/aVL/V4/V5/V6] POSSIBLE ANTERIOR MYOCARDIAL INFARCTION [30 ms Q WAVE IN V3/V4, OR R < 0.2 mV IN V4], OF INDETERMINATE AGE INFERIOR MYOCARDIAL INFARCTION [40+ ms Q WAVE AND/OR ST/T ABNORMALITY IN II/aVF], PROBABLY OLD No previous ECG available for comparison Electronically Signed On 03-25-2025 11:28:27 CDT by Alverto Harmon M.D.
[2025-03-25 11:24] LABS: INR 1.0; Prothrombin Time 13.0 Seconds (11.1-14.7)
[2025-03-25 11:25] LABS: Partial Thromboplastin Time 29.3 Seconds (22.3-36.8)
--- OUTSIDE RECORDS SUMMARY | 2025-03-25 11:46 | XMS_ITS | Clinical Summary ---
Author Organization [facility] [address] [place] [address] Care Team Providers Care Count Room Clerk Name Role Phone Litzy Beckford NP Primary Care Provider [phone] Allergies No known active allergies Medications metFORMIN [...] on file Legal Sex Male 12:38 AM ENLISTED ADVISOR Gender Identity Not on file Sexual Orientation Not on file Obstetrics History Last Filed Vital Signs Vital Sign Reading Time Taken Comments Blood Pressure 124/64 11/05/2024 10:27 AM CDT Pulse 92 11/05/2024 10:27 AM CDT Temperature 36.1 C (97 F) 08/14/2023 10:20 AM ENLISTED ADVISOR Respiratory Rate 18 09/10/2023 8:41 AM ENLISTED ADVISOR Oxygen Saturation 96% 11/05/2024 10:27 AM CDT [...] AA) Screen 2018 Well Visit 65+ 2018 eGFR 07/31/2024 07/31/2023 Fall Risk Assessment 08/14/2024 08/14/2023 Covid-19 Vaccine (3 - 2024-2 6 season) 2025 09/29/2020, 09/08/2020 Influenza Vaccine (#1) 2025 Lipid Panel 11/05/2025 11/05/2024, 04/0 11/2023, 09/11/2022, Additional history exists Medical Devices Implanted Type Area Service Attendant Cafeteria Device Identifier Shelf Expiration Date Model / Serial / Lot [employer] Vascade Mvp 6-12fr Venous Closure [id number] - [id number] Implanted:Qty: 1 on 08/14/2023 by Tono Morris MD at [facility] 05/15/2025 800-612C-1 0U / / [id number] [facility] [employer] Vascade Mvp 6-12fr Venous Closure [id number] - [id number] Implanted:Qty: 1 on 08/14/2023 by Tono Morris MD at [facility] 05/15/2025 800-612C-1 0U / / [id number] [facility] Medical [facility] Device Vascular Closure Femoral Artery Bioabsorbable Dual Method Vascade 6-7fr Collagen [id number] - [id number] Implanted:Qty: 1 on 08/14/2023 by Tono Morris MD at [facility] 04/24/2025 700-580I-0 5U / / [id number] Procedures Procedure Name Priority Date/Time Associated Diagnosis Comments POCT LIPID PANEL Routine 11/05/2024 10:4 0 AM CDT Hyperlipidemia associated with type 2 diabetes mellitus (HCC) BASIC METABOLIC PANEL Routine 07/31/2023 2:10 PM ENLISTED ADVISOR PSVT (paroxysmal supraventricular tachycardia) Pre-procedure lab exam [...] Capillary blood 11/05/2024 1 0:40 AM CDT [facility] Cherie Phelan MD POINT OF CARE TEST ERICKA ANGELA Final Result * (ABNORMAL) Basic metabolic panel (07/31/2023 2:10 PM ENLISTED ADVISOR) Glucose 156(H) 65 - 139 mg/dL [facility] [...] [facility] Blood 07/31/2023 2:10 PM ENLISTED ADVISOR 07/31/2023 2:10 PM ENLISTED ADVISOR Narrative [facility] - 08/01/2023 6:22 AM ENLISTED ADVISOR FASTING:NO FASTING: NO Tono Morris MD LAB BLOOD ORDERABLES F inal Result [facility] [address] [place] [address] from Last 3 Months or Most Recently Relevant to Health Maintenance Insurance Care Teams Count Room Clerk Relationship Specialty Start Date End Date Litzy Beckford NP [address] [place] [address] [place] [id number] PCP - General Cardiovascular Disease 03/11/25
== END 2025-03-25 10:25 | disposition home or self-care (01) ==
PROVIDERS: PCP Clinical Nurse Specialist; Visit Provider Urology
DX: Z01.818 Encounter for other preprocedural examination (principal); I45.10 Unspecified right bundle-branch block; N20.0 Calculus of kidney; E11.29 Type 2 diabetes mellitus with other diabetic kidney complication; I10 Essential (primary) hypertension; I25.10 Atherosclerotic heart disease of native coronary artery without angina pectoris
CPT/HCPCS: 36415; 85610; 85730; 87086; 87147; 87186; 93005

== ENCOUNTER 2025-04-02 05:48 | Day surgery (SDC) | payer OTHER, SELFPAY ==
[2025-03-24 14:43] VITALS: BMI 45.8
--- NOTE | 2025-03-24 14:54 | PC.NURSE ---
Report to the Outpatient Waiting Room, entrance under the green pavilion located off [facility], at time _0630am on date ___04/02/25____. Planned Procedure Time: _0830am .? Time changes happen often and if your time is changed the preop area will call you the afternoon before. - You and your visitor will be asked to self-screen and do not enter if you have any COVID symptoms. Please call surgeon if you need to reschedule. - A mask is optional within the hospital at this time. Patients may have clear liquids (water, carbonated beverages, clear teas, apple juice) until 3 hours prior to surgery with a maximum of 20 ounces. - No food from midnight until time of surgery and no smoking, or chewing tobacco (or any form of nicotine). No chewing gum, candy or mints.( 0530am) Take only the following medications with a SIP of water on the morning of surgery: Metoprolol and Tylenol if needed DO NOT STOP ANY OF YOUR OTHER PRESCRIPTION MEDICATIONS PRIOR TO SURGERY EXCEPT THE FOLLOWING Hold all vitamins and supplements for 3 days per anesthesiologist. Date of last dose is 03/29/25 Medications to discontinue per physician HOLD ASPIRIN and Meloxicam for [address] Room Date to take last dose 03/24/25 Please no make-up, nail romanian, hairspray, perfume, deodorant, or body powder the day of surgery.? No jewelry (including any body piercings) or valuables the day of surgery, leave them at home.? Please take a shower or bath the night before, or the morning of, surgery with an antibacterial soap.? ( GOLD DIAL ) Wear comfortable, loose fitting clothing.? - Jewelry must be removed prior to entering the operating room.? Rings and piercings that are not removed may be cut off. - The hospital will not accept responsibility for valuables.? - Please leave all valuables, including medications, at home the day of surgery. If you are going home after surgery, a licensed mule driver must drive you home.? - NO public transportation without another adult if you receive anesthesia. - We recommend that an adult stay with you for 24 hours following discharge. - We also recommend that you do not drive, make important decision, drink alcoholic beverages, or take any drugs that were not prescribed by your health care provider for at least 24 hours after your discharge time. Follow any additional instructions given to you from your surgeon. Telephone instructions given to __Patient and asked if any additional questions and then verbalized understanding. Patient advised to call surgeon office or pre surgery nurse liaison [phone] if any additional questions.
--- NOTE | 2025-03-26 07:48 | PM.HPGS ---
History of Present Illness History of Present Illness Consent: Risks, benefits, and alternatives have been discussed and questions answered. Patient agrees to proceed with procedure. Chief complaint: renal kidney stone, right hydronephrosis Narrative: Adi Estrella Jr. is a 69 year old male with a history of recurrent urolithiasis. Recent imaging demonstrates significant bilateral renal stones, more so on the right. Additionally there is a possible right proximal ureteral stone. After discussions he has elected for cystoscopy with right ureteral stent placement, right ESWL Review of Systems Review of Systems: All systems reviewed & are unremarkable except as noted in HPI and below PMFSH Past Medical History Medical History Encounter to establish care Mass of skin of left shoulder Right ureteral calculus Bilateral renal stones External hemorrhoids without complication Type 2 diabetes mellitus SVT (supraventricular tachycardia) Type 2 DE (myocardial infarction) Elevated troponin History of paroxysmal supraventricular tachycardia Retained ureteral stent Right renal stone Metabolic syndrome Tobacco use Leukocytosis Right ureteral stone Type 2 diabetes mellitus with hyperglycemia Benign essential hypertension Hyperlipidemia LDL goal <100 Morbid obesity Obstructive sleep apnea CPAP Surgical History Surgical History H/O cardiac radiofrequency ablation 07/2023 Family History Family History Sibling Patient's sister is in good health Patient's brother is in good health Father Family history of cardiovascular disease, Onset Age: 80 Family history of lung disease Hypertension History of stroke Carcinoma of colon Mother Family history of cardiovascular disease, Onset Age: 90 Heart disease unsure of type of heart disease Social History Social History Smoking packs per day: 0.75 Smoking cigarettes per day: 15.0 Years smoked: 50 Smoking pack-years: 37.50 Smoking status: Former smoker Tobacco type: cigarettes Second hand tobacco smoke exposure: Yes Smoking end date: 07/15/22 Alcohol intake: never Alcohol use details: SOCIALLY YEARS AGO Substance use: never Substance use type: does not use Living arrangements: with family Additional living arrangements comments: Gender identity (if verbalized by the patient): Male Sexual Orientation (if Verbalized by the Patient): Straight or Heterosexual Spiritual care concerns: No Agree to blood products: Yes Meds Home Medications and Allergies Home Medications ?Medication ?Instructions ?Recorded ?Confirmed ?Type aspirin 81 mg tablet,delayed 81 mg PO DAILY 07/27/19 03/24/25 History release (Adult Low Dose Aspirin) Held on 07/28/21. Instructions: Resume on 07/30/21. Glucosamine Chondroitin 2 cap PO DAILY 02/07/21 03/24/25 History lancets 28 gauge (CareTouch Safety #100 ea 04/15/23 03/24/25 Rx Lancets) blood sugar diagnostic (Contour #300 ea 09/18/23 03/24/25 Rx Next Test Strips) metoprolol succinate 50 mg 50 mg PO DAILY 11/26/23 03/24/25 History tablet,extended release 24 hr pen needle, diabetic 32 gauge x #100 ea 12/26/23 03/24/25 Rx 5/32 (Comfort EZ Pen [place]) cetirizine 10 mg capsule (Zyrtec) 10 mg PO DAILY PRN allergy symptoms 09/07/24 03/24/25 History mecobalamin (vitamin B12) 1,000 1,000 mcg PO DAILY 09/07/24 03/24/25 History mcg chewable tablet multivitamin (One-A-Day Essential 1 tablet PO DAILY 09/07/24 03/24/25 History tablet) meloxicam 15 mg tablet See Rx Instructions .Route 12/17/24 03/24/25 Rx .COMPLEX #90 tabs metformin 500 mg tablet,extended See Rx Instructions .Route 12/17/24 03/24/25 Rx release 24 hr .COMPLEX #360 tabs atorvastatin 10 mg tablet See Rx Instructions .Route 01/05/25 03/24/25 Rx .COMPLEX #90 tabs semaglutide 2 mg/dose (8 mg/3 mL) 2 mg (0.75 mL) subcut WEEKLY #3 mL 03/08/25 03/24/25 Rx subcutaneous pen injector (Ozempic) lisinopril 20 mg tablet 20 mg PO DAILY #90 tabs 03/11/25 03/24/25 Rx Allergies Allergy/AdvReac Type Severity Reaction Status Date / Time No Known Allergies Allergy Verified 03/24/25 14:36 Exam Const: General: no acute distress Resp: Effort & Inspection: normal respiratory effort GI: Inspection: non-distended GI Palp: No abdominal tenderness and No Guarding due to palpation present (GI) Auscultation: normal bowel sounds Assessment and Plan Assessment and plan (1) Right renal stone: Code(s): N20.0 - Calculus of kidney Status: Acute Assessment and Plan: Cystoscopy, right ureteral stent placement, right ESWL
[2025-04-02] VITALS (7 sets, daily range): BP systolic 121–156; BP diastolic 69–82; PULSE 65–75; RESP 14–19; TEMP 36.4–36.7; O2SAT 94–100
--- NOTE | ~2025-04-02 | XR_ITS ---
EXAMINATION: XR abdomen/kub 1V DATE: 04/02/2025 06:42 INDICATION: Nephrolithiasis for planned extracorporeal shockwave lithotripsy TECHNIQUE: A supine view of the abdomen on 3 radiographs was obtained. COMPARISON: KUB dated 03/11/[address] dated 10/11/2022 FINDINGS: There are numerous, likely at least 50 small right renal stones the largest measuring up to 6 mm which renal pelvises sees in the mid to lower right kidney along with the renal pelvis. There is also a cluster of at least 8 small stones measuring up to 4 mm in the proximal right ureter. Similar sized cluster of stones in an upper pole calyx of the left kidney. Cluster of coarse calcifications at the prostate projecting over the right pubic body. No dilated loops of gas-filled bowel to suggest obstruction. Lung bases are clear. Heart size is normal. Bilateral hypoplastic riblets at a transitional thoracolumbar segment. Severe lower lumbar facet osteoarthritis. IMPRESSION: 1. Bilateral nephrolithiasis. Reviewed, dictated and finalized at location A.
--- OUTSIDE RECORDS SUMMARY | 2025-04-02 05:50 | XMS_ITS | Clinical Summary ---
Author Organization [facility] [address] Address [address] [place] [address] Care Team Providers Care Automatic Serging Machine Operator Name Role Phone Litzy Beckford NP Primary Care Provider [phone] Allergies No known active allergies Medications metFORMIN [...] on file Legal Sex Male 12:38 AM RENEWABLE ENERGY ENGINEER Gender Identity Not on file Sexual Orientation Not on file Obstetrics History Last Filed Vital Signs Vital Sign Reading Time Taken Comments Blood Pressure 124/64 11/05/2024 10:27 AM CDT Pulse 92 11/05/2024 10:27 AM CDT Temperature 36.1 C (97 F) 08/14/2023 10:20 AM RENEWABLE ENERGY ENGINEER Respiratory Rate 18 09/10/2023 8:41 AM RENEWABLE ENERGY ENGINEER Oxygen Saturation 96% 11/05/2024 10:27 AM CDT [...] history exists Medical Devices Implanted Type Area Guide Foreign Tour Device Identifier Shelf Expiration Date Model / Serial / Lot [employer] Vascade Mvp 6-12fr Venous Closure [id number] - [id number] Implanted:Qty: 1 on 08/14/2023 by Tono Morris MD at [facility] 05/15/2025 800-612C-1 [id number] / / [id number] [facility] Medical Inc Vascade Mvp 6-12fr Venous Closure [id number] - [id number] Implanted:Qty: 1 on 08/14/2023 by Tono Morris MD at [facility] 05/15/2025 800-612C-1 0U / / [id number] [facility] Medical [facility] Device Vascular Closure Femoral Artery Bioabsorbable Dual Method Vascade 6-7fr Collagen [id number] - [id number] Implanted:Qty: 1 on 08/14/2023 by Tono Morris MD at [facility] 04/24/2025 700-580I-0 5U / / [id number] Procedures Procedure Name Priority Date/Time Associated Diagnosis Comments POCT LIPID PANEL Routine 11/05/2024 10:4 0 AM CDT Hyperlipidemia associated with type 2 diabetes mellitus (HCC) BASIC METABOLIC PANEL Routine 07/31/2023 2:10 PM RENEWABLE ENERGY ENGINEER PSVT (paroxysmal supraventricular tachycardia) Pre-procedure lab exam [...] Capillary blood 11/05/2024 1 0:40 AM CDT [facility] Cherie Phelan MD POINT OF CARE TEST ERICKA ANGELA Final Result * (ABNORMAL) Basic metabolic panel (07/31/2023 2:10 PM RENEWABLE ENERGY ENGINEER) Glucose 156(H) 65 - 139 mg/dL [facility] [...] [facility] Blood 07/31/2023 2:10 PM RENEWABLE ENERGY ENGINEER 07/31/2023 2:10 PM RENEWABLE ENERGY ENGINEER Narrative [facility] - 08/01/2023 6:22 AM RENEWABLE ENERGY ENGINEER FASTING:NO FASTING: NO Tono Morris MD LAB BLOOD ORDERABLES F inal Result [facility] [address] [place] [address] from Last 3 Months or Most Recently Relevant to Health Maintenance Insurance Care Teams Automatic Serging Machine Operator Relationship Specialty Start Date End Date Litzy Beckford NP [address] [place] [address] [place] [address] PCP - General Cardiovascular Disease 03/11/25
--- NOTE | 2025-04-02 06:18 | WPDHPUPDATE1 ---
History and Physical Update Update Date/Time: 04/02/25 06:18 History and Physical has been reviewed, including an updated exam of the patient. There are NO changes in the patient's condition. Risks, benefits, and alternatives have been discussed and questions answered. Patient agrees to proceed with procedure.
[2025-04-02] MEDS: LACTATED RINGERS 1,000 ML 30 ML IV CONT (07:05)
--- NOTE | 2025-04-02 08:22 | WPDANESEPPF ---
Anes - Initial Pre Proc Eval Procedure: Operation Date: 04/02/25 08:30 Proposed Procedures p Right Extracorporeal Shock Wave Lithotripsy - Timur Romo MD s Cystoscopy Right Stent Insertion - Timur Romo MD Date/Time: 04/02/25 08:22 Surgeon: Timur Romo MD Pre Op Diagnosis: renal kidney stone, right hydronephrosis Patient Data Age: 69 Gender: M Height: 1.68 m Weight: 130 kg Last Vital Signs Temp 98.0 F 04/02/25 06:40 Pulse 65 04/02/25 06:40 Resp 18 04/02/25 06:40 BP 129/69 04/02/25 06:40 Pulse Ox 98 04/02/25 06:40 O2 Del Method Room Air 04/02/25 06:40 Allergies Allergy/AdvReac Type Severity Reaction Status Date / Time No Known Allergies Allergy Verified 04/02/25 06:56 Home Medications ?Medication ?Instructions ?Recorded ?Confirmed ?Type aspirin 81 mg tablet,delayed 81 mg PO DAILY 07/27/19 04/02/25 History release (Adult Low Dose Aspirin) Held on 07/28/21. Instructions: Resume on 07/30/21. Glucosamine Chondroitin 2 cap PO DAILY 02/07/21 04/02/25 History lancets 28 gauge (CareTouch Safety #100 ea 04/15/23 03/24/25 Rx Lancets) blood sugar diagnostic (Contour #300 ea 09/18/23 03/24/25 Rx Next Test Strips) metoprolol succinate 50 mg 50 mg PO DAILY 11/26/23 04/02/25 History tablet,extended release 24 hr pen needle, diabetic 32 gauge x #100 ea 12/26/23 03/24/25 Rx /32 (Comfort EZ Pen [place]) cetirizine 10 mg capsule (Zyrtec) 10 mg PO DAILY PRN allergy symptoms 09/07/24 03/24/25 History mecobalamin (vitamin B12) 1,000 1,000 mcg PO DAILY 09/07/24 04/02/25 History mcg chewable tablet multivitamin (One-A-Day Essential 1 tablet PO DAILY 09/07/24 04/02/25 History tablet) meloxicam 15 mg tablet See Rx Instructions .Route 12/17/24 04/02/25 Rx .COMPLEX #90 tabs metformin 500 mg tablet,extended See Rx Instructions .Route 12/17/24 04/02/25 Rx release 24 hr .COMPLEX #360 tabs atorvastatin 10 mg tablet See Rx Instructions .Route 01/05/25 04/02/25 Rx .COMPLEX #90 tabs semaglutide 2 mg/dose (8 mg/3 mL) 2 mg (0.75 mL) subcut WEEKLY #3 mL 03/08/25 04/02/25 Rx subcutaneous pen injector (Ozempic) lisinopril 20 mg tablet 20 mg PO DAILY #90 tabs 03/11/25 04/02/25 Rx Laboratory Tests 04/02/25 07:04 POC Capillary Glucose 143 H mg/dl (65-105) Patient hx anesthesia problems: none Family hx anesthesia problems: none Results Review: All pre-operative results and documents have been reviewed as part of the pre-operative evaluation. [facility] Past Medical History Medical History Encounter to establish care Mass of skin of left shoulder Right ureteral calculus Bilateral renal stones External hemorrhoids without complication Type 2 diabetes mellitus SVT (supraventricular tachycardia) Type 2 [place] (myocardial infarction) Elevated troponin History of paroxysmal supraventricular tachycardia Retained ureteral stent Right renal stone Metabolic syndrome Tobacco use Leukocytosis Right ureteral stone Type 2 diabetes mellitus with hyperglycemia Benign essential hypertension Hyperlipidemia LDL goal <100 Morbid obesity Obstructive sleep apnea CPAP Surgical History Surgical History H/O cardiac radiofrequency ablation 07/2023 Family History Family History Sibling Patient's sister is in good health Patient's brother is in good health Father Family history of cardiovascular disease, Onset Age: 80 Family history of lung disease Hypertension History of stroke Carcinoma of colon Mother Family history of cardiovascular disease, Onset Age: 90 Heart disease unsure of type of heart disease Social History Social History Smoking packs per day: 0.75 Smoking cigarettes per day: 15.0 Years smoked: 50 Smoking pack-years: 37.50 Smoking status: Former smoker Tobacco type: cigarettes Second hand tobacco smoke exposure: Yes Smoking end date: 07/15/22 Alcohol intake: never Alcohol use details: SOCIALLY YEARS AGO Substance use: never Substance use type: does not use Living arrangements: with family Additional living arrangements comments: Gender identity (if verbalized by the patient): Male Sexual Orientation (if Verbalized by the Patient): Straight or Heterosexual Spiritual care concerns: No Agree to blood products: Yes Anes - Eval Final PreProcedure Day of Procedure 04/02/25 08:22 Patient weight: morbidly obese Lungs: normal air movement Airway: Mallampati scale class III and special considerations (Missing many upper teeth post aspect. ) Neurological: alert and oriented Last oral intake: >/= 8 hours ASA classification: III Emergent: no Anesthetic plan: proceed Anesthesia type and monitoring: general LMA and standard monitoring Results Review: All pre-operative results and documents have been reviewed as part of the pre-operative evaluation. ASIM on CPAP, DM fsbs 143, BMI 46, ex smoker, quit 2022 after 50 pack years, stable resp status currently. Informed Consent: The patient's anesthetic plan and its attendant risks and benefits were discussed with the patient/family/POA. Questions were solicited and answers provided to the satisfaction of the patient/family/POA.
[2025-04-02] MEDS: ceFAZolin 3 GM/D5W 100 ML 100 ML IVPB (08:56)
--- NOTE | 2025-04-02 09:21 | W.PM.PROC2 ---
Procedure Note - Detailed Date of Procedure 04/02/25 Pre-op Diagnosis Right kidney and ureteral stones, right hydronephrosis Post-op Diagnosis Same Procedure Performed Cystosopy, right ureteral stent placement, right ESWL Surgeon Timur Romo MD Anesthesia General Description of Procedure The patient was brought to the operative suite where he was placed in the supine position on the Dornier lithotripter table. Flexible cystoscopy was undertaken with a 16F flexible cystoscopy. There were no urethral strictures. The prostatic urethra estimated length was 2.0cm. There was mild obstruction of the prostatic urethra with no median lobe enlargement. The bladder mucosa was normal and there was a single, orthotopic ureteral orifice bilaterally. A 0.035 glidewire was advanced into the right renal pelvis under fluoroscopy. A 4.8F J-J ureteral stent was positioned with the proximal coil in the renal pelvis and the distal coil in the bladder. The patient was then repositioned in the supine position. this patient has a used stones in his right collecting system and a few in his right proximal ureter. We treated the lower calices 2400 shocks at the present for. We then did an additional 5 mm sized to a stones in his proximal a A total of 2500 shocks were delivered at a power setting of 4. There appeared to be good fragmentation of the stone. The patient tolerated the procedure well and was taken to the recovery room in good condition.
== END 2025-04-02 11:26 | disposition home or self-care (01) ==
PROVIDERS: PCP Clinical Nurse Specialist; Visit Provider Urology
PROC: (CPT 50590; principal; 2025-04-02 08:30)
PROC: (CPT 52352; 2025-04-02 08:30)
DX: N20.0 Calculus of kidney (principal); E78.5 Hyperlipidemia, unspecified; I10 Essential (primary) hypertension; E11.65 Type 2 diabetes mellitus with hyperglycemia; I47.10 Supraventricular tachycardia, unspecified; I25.2 Old myocardial infarction; E88.810 Metabolic syndrome; D72.829 Elevated white blood cell count, unspecified; G47.33 Obstructive sleep apnea (adult) (pediatric); E66.01 Morbid (severe) obesity due to excess calories; Z68.42 Body mass index [BMI] 45.0-49.9, adult; Z79.82 Long term (current) use of aspirin; Z79.84 Long term (current) use of oral hypoglycemic drugs; Z79.85 Long-term (current) use of injectable non-insulin antidiabetic drugs; Z99.89 Dependence on other enabling machines and devices; Z87.891 Personal history of nicotine dependence; Z86.79 Personal history of other diseases of the circulatory system; Z80.0 Family history of malignant neoplasm of digestive organs; Z82.49 Family history of ischemic heart disease and other diseases of the circulatory system
CPT/HCPCS: 52332; 50590; 74018; 82948; C1758; C1769; C2617; J0690; J1100; J2003; J2405; J2704; J3010; J7120

== ENCOUNTER 2025-04-06 12:55 | Outpatient (CLI) | payer OTHER, SELFPAY ==
--- OUTSIDE RECORDS SUMMARY | 2025-04-06 13:03 | XMS_ITS | Clinical Summary ---
Author Organization [facility] [address] Address [address] [place] [address] Care Team Providers Care Foundation Drill Operator Name Role Phone Litzy Beckford NP Primary Care Provider [phone] Allergies No known active allergies Medications metFORMIN [...] on file Legal Sex Male 12:38 AM INTENSIVE CARE AMBULANCE PARAMEDIC Gender Identity Not on file Sexual Orientation Not on file Obstetrics History Last Filed Vital Signs Vital Sign Reading Time Taken Comments Blood Pressure 124/64 11/05/2024 10:27 AM CDT Pulse 92 11/05/2024 10:27 AM CDT Temperature 36.1 C (97 F) 08/14/2023 10:20 AM INTENSIVE CARE AMBULANCE PARAMEDIC Respiratory Rate 18 09/10/2023 8:41 AM INTENSIVE CARE AMBULANCE PARAMEDIC Oxygen Saturation 96% 11/05/2024 10:27 AM CDT [...] history exists Medical Devices Implanted Type Area Computer Security Specialist Device Identifier Shelf Expiration Date Model / Serial / Lot [employer] Vascade Mvp 6-12fr Venous Closure [id number] - [id number] Implanted:Qty: 1 on 08/14/2023 by Tono Morris MD at [facility] 05/15/2025 800-612C-1 0U / / [id number] [facility] Medical Inc Vascade Mvp 6-12fr Venous Closure [id number] - [id number] Implanted:Qty: 1 on 08/14/2023 by Tono Morris MD at [facility] 05/15/2025 800-612C-1 0U / / [id number] [facility] Medical [facility] Device Vascular Closure Femoral Artery Bioabsorbable Dual Method Vascade 6-7fr Collagen [id number] - [id number] Implanted:Qty: 1 on 08/14/2023 by Tono Morris MD at [facility] 04/24/2025 700-580I-0 5U / / [id number] Procedures Procedure Name Priority Date/Time Associated Diagnosis Comments POCT LIPID PANEL Routine 11/05/2024 10:4 0 AM CDT Hyperlipidemia associated with type 2 diabetes mellitus (HCC) BASIC METABOLIC PANEL Routine 07/31/2023 2:10 PM INTENSIVE CARE AMBULANCE PARAMEDIC PSVT (paroxysmal supraventricular tachycardia) Pre-procedure lab exam [...] Capillary blood 11/05/2024 1 0:40 AM CDT [facility] Cherie Phelan MD POINT OF CARE TEST ERICKA ANGELA Final Result * (ABNORMAL) Basic metabolic panel (07/31/2023 2:10 PM INTENSIVE CARE AMBULANCE PARAMEDIC) Glucose 156(H) 65 - 139 mg/dL [facility] [...] [facility] Blood 07/31/2023 2:10 PM INTENSIVE CARE AMBULANCE PARAMEDIC 07/31/2023 2:10 PM INTENSIVE CARE AMBULANCE PARAMEDIC Narrative [facility] - 08/01/2023 6:22 AM INTENSIVE CARE AMBULANCE PARAMEDIC FASTING:NO FASTING: NO Tono Morris MD LAB BLOOD ORDERABLES F inal Result [facility] [address] [place] [address] from Last 3 Months or Most Recently Relevant to Health Maintenance Insurance Care Teams Foundation Drill Operator Relationship Specialty Start Date End Date Litzy Beckford NP [address] [place] [address] [place] [address] PCP - General Cardiovascular Disease 03/11/25
--- NOTE | 2025-04-06 13:15 | ECHO_ITS ---
Patient Info Name: Adi Estrella Age: 69 years : 1955 Gender: Male Ht: 66 in Wt: 293 lbs BSA: 2.56 m2 HR: 80 bpm BP: 136 / 83 mmHg Heart Rhythm: Sinus Rhythm Technical Quality: Fair Exam Date: 04/06/2025 1:25 PM Patient Status: O Admit Date: 04/06/2025 Exam Type: CA echo dop color flow w con Complete two-dimensional, color flow and Doppler transthoracic echocardiogram is performed with contrast to opacify the left ventricle and to improve the deliniation of the left ventricle endocardial borders. Is Manager: Leticia Davis Attending Provider: Litzy Beckford [facility] Contrast/Agitated Saline Contrast/Ag. Saline: Definity Amount: 2.00 ml Administered By: Leticia Davis New IV Access: Left Site Condition: IV removed Summary 1. Left ventricular systolic function is normal, estimated at 50-55. 2. The left ventricular diastolic function is grade I diastolic dysfunction. 3. Technically difficult study. Left Ventricle Left ventricular chamber dimension is normal. Left ventricular systolic function is normal, estimated at 50-55. There is no increased left ventricular wall thickness. Left ventricular septal wall motion is normal. The left ventricular diastolic function is grade I diastolic dysfunction. Right Ventricle Right ventricular chamber dimension is normal. Right ventricular systolic function is normal. Left Atria Left atrial chamber dimension is normal. Right Atria Right atrial chamber dimension is normal. Aortic Valve The aortic valve is trileaflet. There is no aortic valve sclerosis. There is no aortic valve stenosis. There is no aortic valve regurgitation. There is mild aortic valve calcification. Pulmonic Valve The pulmonic valve is normal. There is no pulmonic valve stenosis. There is no pulmonic regurgitation. Mitral Valve The mitral valve has normal leaflets. There is no mitral valve stenosis. There is no mitral valve regurgitation. Tricuspid Valve The tricuspid valve leaflets are normal. There is no significant tricuspid valve stenosis. There is no tricuspid valve regurgitation. Pericardium/Pleural The pericardium appears normal. There is no pericardial effusion. Inferior Vena Cava Normal inferior vena cava with >50% collapse upon inspiration consistent with normal right atrial pressure, 5 mmHg. Aorta The aortic root size at the sinus of Valsalva is normal. The prox ascending aorta size is normal. Left Ventricular Outflow Tract Name Value Normal LVOT 2D LVOT Diameter 2.0 cm LVOT Doppler LVOT Peak Velocity 109 cm/s LVOT Peak Gradient 5 mmHg LVOT Mean Gradient 2 mmHg LVOT VTI 18 cm LVOT VTI/AV VTI Ratio 0.7 LVOT Stroke Volume 53 ml LVOT CO 4.2 l/min LVOT CI 1.7 l/min/m2 Pulmonic Valve Name Value Normal RVOT Doppler RVOT Peak Velocity 81 cm/s RVOT Peak Gradient 3 mmHg PV Doppler PV Peak Velocity 91 cm/s PV Peak Gradient 3 mmHg Mitral Valve Name Value Normal MV Diastolic Function MV E Peak Velocity 66 cm/s MV A Peak Velocity 78 cm/s MV E/A 0.9 MV Decel Time (PW) 223 ms MV Annular TDI MV E/e' (Septal) 10.0 MV E/e' (Lateral) 9.3 MV E/e' (Average) 9.7 Tricuspid Valve Name Value Normal Estimated PAP/RSVP RA Pressure 5 mmHg <=5 TV Annular TDI TV Lateral Luna s' Velocity 11.8 cm/s >=9.5 Aorta Name Value Normal Ascending Aorta Ao Root Diameter (MM) 3.7 cm Ao Root Diam Index (MM) 1.4 cm/m2 Aortic Valve Name Value Normal AV Doppler AV Peak Velocity 131 cm/s AV Peak Gradient 7 mmHg AV Mean Gradient 3 mmHg AV VTI 25 cm AV Area (Cont Eq VTI) 2.1 cm2 >=3.0 AV Area (Cont Eq Brian) 2.5 cm2 AV DI (Brian) 0.83 AV Regurgitation 2D LVOT Area 3.0 cm2 Ventricles Name Value Normal LV Dimensions 2D/MM IVS Diastolic Thickness (2D) 0.9 cm 0.6-1.0 LVID Diastole (2D) 5.6 cm 4.2-5.8 LVIW Diastolic Thickness (2D) 0.9 cm 0.6-1.0 LVID Systole (2D) 3.8 cm 2.5-4.0 LVOT Diameter 2.0 cm LV Mass (2D Cubed) 195.26 g 88.00-224.00 LV Mass Index (2D Cubed) 76 g/m2 49-115 Relative Wall Thickness (2D) 0.34 <=0.42 LV Fractional Shortening/Ejection Fraction 2D/MM LV Fractional Shortening (2D) 31 % 25-43 LV EF (2D Teichnicolez) 58 % LV Diastolic Volume (4C MOD) 66 ml LV EF (4C MOD) 65 % LV Diastolic Volume (2C MOD) 49 ml LV EF (2C MOD) 70 % LV Diastolic Volume (BP MOD) 61 ml 62-150 LV Diastolic Volume Index (BP MOD) 24 ml/m2 34-74 LV Systolic Volume (BP MOD) 19 ml 21-61 LV Systolic Volume Index (BP MOD) 8 ml/m2 11-31 LV EF (BP MOD) 68 % 52-72 LV Diastolic Length (4C) 8.4 cm LV Systolic Length (4C) 6.5 cm LV Stroke Volume (4C MOD) 43 ml Atria Name Value Normal LA Dimensions LA Dimension (MM) 3.8 cm 3.0-4.0 LA Volume (4C A-L) 76 ml LA Volume (BP A-L) 70 ml RA Dimensions RA Area (4C) 11.1 cm2 <=18.0 Report Signatures
[2025-04-06] MEDS: PERFLUTREN LIPID MICROSPHERES 1.5 ML VIAL DILUTED TO 10 ML TOTAL VOLUME IV PUSH (13:50)
--- NOTE | 2025-04-06 14:17 | IVDEFINITY ---
Prior to administration of IV Definity the patient was educated on the risks and benefits of the imaging enhancing agent including potential adverse side effects. The patient verbalized understanding. Allergies were verified. No exclusion criteria were identified and at least one of the following inclusion criteria were met: 1) physician request, 2) patient technically difficult to image (per the [place] Society of Echocardiography guidelines of two or more segments not discernable within the apical view), or 3) questionable left ventricular function. ?
== END 2025-04-06 12:56 | disposition home or self-care (01) ==
PROVIDERS: PCP Clinical Nurse Specialist; Visit Provider Clinical Nurse Specialist
DX: R93.1 Abnormal findings on diagnostic imaging of heart and coronary circulation (principal); R60.0 Localized edema; R06.02 Shortness of breath; G47.33 Obstructive sleep apnea (adult) (pediatric); I25.2 Old myocardial infarction
CPT/HCPCS: C8929; Q9957

== ENCOUNTER 2025-04-12 13:59 | Outpatient (CLI) | payer OTHER, SELFPAY ==
--- NOTE | ~2025-04-12 | XR_ITS ---
Abdominal radiograph(s) INDICATION: Calculus of kidney, N 20.0 COMPARISON: X-ray 10 days prior TECHNIQUE: 2 views supine AP abdomen FINDINGS: Right double-J ureteral stent in place. Multiple small stones right kidney, pelvis, and proximal ureter persists. Less numerous stones left kidney persists. Scattered colonic gas and stool. Small bowel loops not well seen. No acute bony abnormality. IMPRESSION: 1. Right double-J ureteral stent in place. 2. Bilateral nephrolithiasis as before, right side much more numerous. Reviewed, dictated and finalized at location R.
--- OUTSIDE RECORDS SUMMARY | 2025-04-12 14:34 | XMS_ITS | Clinical Summary ---
Author Organization [facility] [address] Address [address] [place] [address] Care Team Providers Care Military Police Officer Name Role Phone Litzy Beckford NP Primary Care Provider [phone] Allergies No known active allergies Medications metFORMIN [...] History Medical History Date Comments Diabetes mellitus Hypertension Sleep apnea Supraventricular tachycardia PSVT (paroxysmal [...] on file Legal Sex Male 12:38 AM SUPERVISOR POLISHING Gender Identity Not on file Sexual Orientation Not on file Obstetrics History Last Filed Vital Signs Vital Sign Reading Time Taken Comments Blood Pressure 124/64 11/05/2024 10:27 AM CDT Pulse 92 11/05/2024 10:27 AM CDT Temperature 36.1 C (97 F) 08/14/2023 10:20 AM SUPERVISOR POLISHING Respiratory Rate 18 09/10/2023 8:41 AM SUPERVISOR POLISHING Oxygen Saturation 96% 11/05/2024 10:27 AM CDT [...] history exists Medical Devices Implanted Type Area Chemistry Account Manager Device Identifier Shelf Expiration Date Model / Serial / Lot [facility] Vascade Mvp 6-12fr Venous Closure [id number] - [id number] Implanted:Qty: 1 on 08/14/2023 by Tono Morris MD at [facility] 05/15/2025 800-612C-1 0U / / [id number] [facility] [employer] Inc Vascade Mvp 6-12fr Venous Closure [id number] - [id number] Implanted:Qty: 1 on 08/14/2023 by Tono Morris MD at [facility] 05/15/2025 800-612C-1 0U / / [id number] [facility] Medical [facility] Device Vascular Closure Femoral Artery Bioabsorbable Dual Method Vascade 6-7fr Collagen [id number] - [id number] Implanted:Qty: 1 on 08/14/2023 by Tono Morris MD at [facility] 04/24/2025 [id number]-0 [id number] / / [id number] Procedures Procedure Name Priority Date/Time Associated Diagnosis Comments POCT LIPID PANEL Routine 11/05/2024 10:4 0 AM CDT Hyperlipidemia associated with type 2 diabetes mellitus (HCC) BASIC METABOLIC PANEL Routine 07/31/2023 2:10 PM SUPERVISOR POLISHING PSVT (paroxysmal supraventricular tachycardia) Pre-procedure lab exam [...] Capillary blood 11/05/2024 1 0:40 AM CDT [facility] Cherie Phelan MD POINT OF CARE TEST ERICKA ANGELA Final Result * (ABNORMAL) Basic metabolic panel (07/31/2023 2:10 PM SUPERVISOR POLISHING) Glucose 156(H) 65 - 139 mg/dL [facility] [...] [facility] Blood 07/31/2023 2:10 PM SUPERVISOR POLISHING 07/31/2023 2:10 PM SUPERVISOR POLISHING Narrative [facility] - 08/01/2023 6:22 AM SUPERVISOR POLISHING FASTING:NO FASTING: NO Tono Morris MD LAB BLOOD ORDERABLES F inal Result [facility] [address] [address], [place] [id number] from Last 3 Months or Most Recently Relevant to Health Maintenance Insurance [address] [place] Care Teams Military Police Officer Relationship Specialty Start Date End Date Litzy Beckford NP [facility] [place] [address] PCP - General Cardiovascular Disease 03/11/25
== END 2025-04-12 14:00 | disposition home or self-care (01) ==
PROVIDERS: PCP Clinical Nurse Specialist; Visit Provider Urology
DX: N20.0 Calculus of kidney (principal)
CPT/HCPCS: 74018

== ENCOUNTER 2025-04-27 10:36 | Outpatient (CLI) | payer OTHER, SELFPAY ==
--- NOTE | ~2025-04-27 | XR_ITS ---
EXAMINATION: XR abdomen/kub 1V, 04/27/2025 10:49 CDT HISTORY: Calculus of kidney RIGHT SIDE, STENT RT SIDE COMPARISON: No comparisons available. Technique: 3 view. Findings: Bowel gas pattern unremarkable. No obstruction. There are innumerable right-sided renal calculi within the collecting system and renal pelvis extending into the proximal ureter the largest 3 mm. There are multiple left-sided renal calculi the largest in the superior pole 4 mm. No acute osseous abnormality. There is a right-sided ureteral stent in appropriate location. Impression: 1. Renal calculi detailed above with stent placement Reviewed, dictated and finalized at location P. Impression: 1. Renal calculi detailed above with stent placement
--- OUTSIDE RECORDS SUMMARY | 2025-04-27 12:24 | XMS_ITS | Clinical Summary ---
Author Organization [facility] [address] Address [address] [place] [address] Care Team Providers Care Podiatric Technician Name Role Phone Litzy Beckford NP Primary Care Provider [phone] Allergies No known active allergies Medications metFORMIN [...] on file Legal Sex Male 12:38 AM QUALITY IMPROVEMENT MANAGER Gender Identity Not on file Sexual Orientation Not on file Obstetrics History Last Filed Vital Signs Vital Sign Reading Time Taken Comments Blood Pressure 124/64 11/05/2024 10:27 AM CDT Pulse 92 11/05/2024 10:27 AM CDT Temperature 36.1 C (97 F) 08/14/2023 10:20 AM QUALITY IMPROVEMENT MANAGER Respiratory Rate 18 09/10/2023 8:41 AM QUALITY IMPROVEMENT MANAGER Oxygen Saturation 96% 11/05/2024 10:27 AM [...] history exists Medical Devices Implanted Type Area Experimental Welder Device Identifier Shelf Expiration Date Model / Serial / Lot [facility] Vascade Mvp 6-12fr Venous Closure [id number] - [id number] Implanted:Qty: 1 on 08/14/2023 by Tono Morris MD at [facility] 05/15/2025 800-612C-1 0U / / [id number] [facility] Medical Inc Vascade Mvp 6-12fr Venous Closure [id number] - [id number] Implanted:Qty: 1 on 08/14/2023 by Tono Morris MD at [facility] 05/15/2025 800-612C-1 0U / / [id number] [facility] Medical [facility] Device Vascular Closure Femoral Artery Bioabsorbable Dual Method Vascade 6-7fr Collagen [id number] - [id number] Implanted:Qty: 1 on 08/14/2023 by Tono Morris MD at [facility] 04/24/2025 700-580I-0 5U / / [id number] Procedures Procedure Name Priority Date/Time Associated Diagnosis Comments POCT LIPID PANEL Routine 11/05/2024 10:4 0 AM CDT Hyperlipidemia associated with type 2 diabetes mellitus (HCC) BASIC METABOLIC PANEL Routine 07/31/2023 2:10 PM QUALITY IMPROVEMENT MANAGER PSVT (paroxysmal supraventricular tachycardia) Pre-procedure lab [...] Capillary blood 11/05/2024 1 0:40 AM CDT [facility] Cherie Phelan MD POINT OF CARE TEST ERICKA ANGELA Final Result * (ABNORMAL) Basic metabolic panel (07/31/2023 2:10 PM QUALITY IMPROVEMENT MANAGER) Glucose 156(H) 65 - 139 mg/dL [...] [facility] Blood 07/31/2023 2:10 PM QUALITY IMPROVEMENT MANAGER 07/31/2023 2:10 PM QUALITY IMPROVEMENT MANAGER Narrative [facility] - 08/01/2023 6:22 AM QUALITY IMPROVEMENT MANAGER FASTING:NO FASTING: NO Tono Morris MD LAB BLOOD ORDERABLES F inal Result [facility] [address] [address], [place] [phone] from Last 3 Months or Most Recently Relevant to Health Maintenance Insurance [address] [place] Care Teams Podiatric Technician Relationship Specialty Start Date End Date Litzy Beckford NP [facility] [place] [address] PCP - General Cardiovascular Disease 03/11/25
== END 2025-04-27 10:37 | disposition home or self-care (01) ==
PROVIDERS: PCP Clinical Nurse Specialist; Visit Provider Urology
DX: N20.0 Calculus of kidney (principal); Z96.0 Presence of urogenital implants
CPT/HCPCS: 74018

== ENCOUNTER 2025-05-18 12:51 | Outpatient (CLI) | payer OTHER, SELFPAY ==
[2025-05-18 14:02] LABS: Anion Gap 7 mmol/L (4-12); Blood Urea Nitrogen 21 mg/dL (9-20); Calcium 10.0 mg/dL (8.4-10.2); Carbon Dioxide 28 mmol/L (22-30); Chloride 105 mmol/L (98-107); Estimated Glomerular Filt Rate > 60; Glucose 178 mg/dL (65-110); Potassium 4.7 mmol/L (3.4-5.0); Sodium 140 mmol/L (137-145)
--- OUTSIDE RECORDS SUMMARY | 2025-05-18 14:33 | XMS_ITS | Clinical Summary ---
Author Organization [facility] [address] Address [address] [place] [address] Care Team Providers Care Dowel Inserting Machine Operator Name Role Phone Litzy Beckford NP Primary Care Provider [phone] Allergies No known active allergies Medications metFORMIN [...] on file Legal Sex Male 12:38 AM GLASS VIAL FILLER Gender Identity Not on file Sexual Orientation Not on file Last Filed Vital Signs Vital Sign Reading Time Taken Comments Blood Pressure 124/64 11/05/2024 10:27 AM CDT Pulse 92 11/05/2024 10:27 AM CDT Temperature 36.1 C (97 F) 08/14/2023 10:20 AM GLASS VIAL FILLER Respiratory Rate 18 09/10/2023 8:41 AM GLASS VIAL FILLER Oxygen Saturation 96% 11/05/2024 10:27 AM CDT [...] history exists Medical Devices Implanted Type Area Senior Clinical Study Manager Device Identifier Shelf Expiration Date Model / Serial / Lot [facility] Medical Inc Vascade Mvp 6-12fr Venous Closure [id number] - [id number] Implanted:Qty: 1 on 08/14/2023 by Tono Morris MD at [facility] 05/15/2025 800-612C-1 0U / / [id number] [facility] Medical Inc Vascade Mvp 6-12fr Venous Closure [id number] - [id number] Implanted:Qty: 1 on 08/14/2023 by Tono Morris MD at [facility] 05/15/2025 800-612C-1 0U / / [id number] [facility] Medical [facility] Device Vascular Closure Femoral Artery Bioabsorbable Dual Method Vascade 6-7fr Collagen [id number] - [id number] Implanted:Qty: 1 on 08/14/2023 by Tono Morris MD at [facility] 04/24/2025 700-580I-0 5U / / [id number] Procedures Procedure Name Priority Date/Time Associated Diagnosis Comments POCT LIPID PANEL Routine 11/05/2024 10:4 0 AM CDT Hyperlipidemia associated with type 2 diabetes mellitus (HCC) BASIC METABOLIC PANEL Routine 07/31/2023 2:10 PM GLASS VIAL FILLER PSVT (paroxysmal supraventricular tachycardia) Pre-procedure lab exam [...] Capillary blood 11/05/2024 1 0:40 AM CDT [facility] Cherie Phelan MD POINT OF CARE TEST ERICKA ANGELA Final Result * (ABNORMAL) Basic metabolic panel (07/31/2023 2:10 PM GLASS VIAL FILLER) Glucose 156(H) 65 - 139 mg/dL [facility] [...] [facility] Blood 07/31/2023 2:10 PM GLASS VIAL FILLER 07/31/2023 2:10 PM GLASS VIAL FILLER Narrative [facility] - 08/01/2023 6:22 AM GLASS VIAL FILLER FASTING:NO FASTING: NO Tono Morris MD LAB BLOOD ORDERABLES F inal Result [facility] [address] [address], [place] [phone] from Last 3 Months or Most Recently Relevant to Health Maintenance Insurance [address] [place] Care Teams Dowel Inserting Machine Operator Relationship Specialty Start Date End Date Litzy Beckford NP [address] [place] [address] [place] [address] PCP - General Cardiovascular Disease 03/11/25
== END 2025-05-18 12:52 | disposition home or self-care (01) ==
LOC: ANHSURGERY 12:55
PROVIDERS: Anesthesiology; PCP Clinical Nurse Specialist; Visit Provider Urology
DX: Z01.818 Encounter for other preprocedural examination (principal); E11.65 Type 2 diabetes mellitus with hyperglycemia
CPT/HCPCS: 36415; 80048

== ENCOUNTER 2025-05-27 00:54 | Day surgery (SDC) | payer OTHER, SELFPAY ==
--- NOTE | 2025-05-17 09:18 | PC.NURSE ---
[facility] has started construction of its new state of the art ER which will open Spring 2026. With this, we anticipate parking may be a challenge for some our surgical patients and families. Parking spaces are limited but are available for all Surgical, obstetrics, and ER patients sharing this lot. If you arrive and find you are having a hard time finding a parking space, please note that we understand the challenges, please drive around the hospital and park near Hospital Entrance 1. When you enter this entrance, you can ask a volunteer to direct or take you back to the surgical waiting area to check in. We appreciate everyone?s understanding of these expected challenges while we build for your future. Report to the Outpatient Waiting Room, entrance under the green pavilion located off [address], at time __10:30 AM on date _05/27/25 . Planned Procedure Time: __12:30 PM .? Time changes happen often and if your time is changed the preop area will call you the afternoon before. - You and your visitor will be asked to self-screen and do not enter if you have any COVID symptoms. Please call surgeon if you need to reschedule. - A mask is optional within the hospital at this time. Patients may have clear liquids (water, carbonated beverages, clear teas, apple juice) until 3 hours prior to surgery( 9:30 AM) with a maximum of 20 ounces. - No food from midnight until time of surgery and no smoking, or chewing tobacco (or any form of nicotine). No chewing gum, candy or mints. Take only the following medications with a SIP of water on the morning of surgery: ___METOPROLOL DO NOT STOP ANY OF YOUR OTHER PRESCRIPTION MEDICATIONS PRIOR TO SURGERY EXCEPT THE FOLLOWING Hold all vitamins and supplements for 3 days per anesthesiologist.LAST DOSE 05/23/25 Medications to discontinue per physician __PATIENT STATES HOLD ASPIRIN AND MELOXICAM 7 DAYS PRE OP PER DR RYAN Date to take last dose 05/19/25 Please no make-up, nail bulgarian, hairspray, perfume, deodorant, or body powder the day of surgery.? No jewelry (including any body piercings) or valuables the day of surgery, leave them at home.? Please take a shower or bath the night before, or the morning of, surgery with an antibacterial soap.? Wear comfortable, loose fitting clothing.? Children are encouraged to wear pajamas. - Jewelry must be removed prior to entering the operating room.? Rings and piercings that are not removed may be cut off. - The hospital will not accept responsibility for valuables.? - Please leave all valuables, including medications, at home the day of surgery. If you are going home after surgery, a licensed taxicab driver must drive you home.? - NO public transportation without another adult if you receive anesthesia. - We recommend that an adult stay with you for 24 hours following discharge. - We also recommend that you do not drive, make important decision, drink alcoholic beverages, or take any drugs that were not prescribed by your health care provider for at least 24 hours after your discharge time. For Pediatric surgeries, we recommend two adults accompany the child home. Follow any additional instructions given to you from your surgeon. Telephone instructions given to _PATIENT and asked if any additional questions and then verbalized understanding. Patient advised to call surgeon office or pre surgery nurse liaison [phone] if any additional questions.
[2025-05-17 09:29] VITALS: BMI 47.2
--- NOTE | 2025-05-19 06:43 | PM.HPGS ---
History of Present Illness History of Present Illness Consent: Risks, benefits, and alternatives have been discussed and questions answered. Patient agrees to proceed with procedure. Chief complaint: right ureteral stones Narrative: Adi Estrella Jr. is a 69 year old male s/p right ESWL 03/23/25 with discouraging results. ?There seems to have been no fracture of his countless small stones, ?including no appreciable change to the stone in his proximal right ureter. ?He is going to repeat a KUB in 10 days. ?I had a very lengthy discussion with him and indicated he likely will need percutaneous nephrolithotomy to clear his unusual stone burden in his right kidney. Addendum Note?(Timur Romo MD; 04/28/2025 4:32 PM) KUB: no appreciable change Addendum Note?(Timur Romo MD; 04/28/2025 4:57 PM) Long discussion with patient regarding multiple stones in our options including staged ureteroscopy with laser lithotripsy and stent replacement versus percutaneous nephrolithotomy. ?We decided to 1st give ureteroscopy a chance Review of Systems Review of Systems: All systems reviewed & are unremarkable except as noted in HPI and below [facility] Past Medical History Medical History Encounter to establish care Mass of skin of left shoulder Right ureteral calculus Bilateral renal stones External hemorrhoids without complication Type 2 diabetes mellitus SVT (supraventricular tachycardia) Type 2 MN (myocardial infarction) Elevated troponin History of paroxysmal supraventricular tachycardia Retained ureteral stent Right renal stone Metabolic syndrome Tobacco use Leukocytosis Right ureteral stone Type 2 diabetes mellitus with hyperglycemia Benign essential hypertension Hyperlipidemia LDL goal <100 Morbid obesity Obstructive sleep apnea CPAP Surgical History Surgical History H/O cardiac radiofrequency ablation 07/2023 Family History Family History Sibling Patient's sister is in good health Patient's brother is in good health Father Family history of cardiovascular disease, Onset Age: 80 Family history of lung disease Hypertension History of stroke Carcinoma of colon Mother Family history of cardiovascular disease, Onset Age: 90 Heart disease unsure of type of heart disease Social History Social History Smoking packs per day: 0.75 Smoking cigarettes per day: 15.0 Years smoked: 50 Smoking pack-years: 37.50 Smoking status: Former smoker Tobacco type: cigarettes Second hand tobacco smoke exposure: Yes Smoking end date: 07/15/22 Alcohol intake: never Alcohol use details: SOCIALLY YEARS AGO Substance use: never Substance use type: does not use Living arrangements: with family Additional living arrangements comments: Gender identity (if verbalized by the patient): Male Sexual Orientation (if Verbalized by the Patient): Straight or Heterosexual Spiritual care concerns: No Agree to blood products: Yes Meds Home Medications and Allergies Home Medications ?Medication ?Instructions ?Recorded ?Confirmed ?Type aspirin 81 mg tablet,delayed 81 mg PO DAILY 07/27/19 05/17/25 History release (Adult Low Dose Aspirin) Held on 04/02/25. Instructions: Resume on 04/04/25. Glucosamine Chondroitin 2 cap PO DAILY 02/07/21 05/17/25 History lancets 28 gauge (CareTouch Safety #100 ea 04/15/23 04/12/25 Rx Lancets) blood sugar diagnostic (Contour #300 ea 09/18/23 04/12/25 Rx Next Test Strips) metoprolol succinate 50 mg 50 mg PO DAILY 11/26/23 05/17/25 History tablet,extended release 24 hr pen needle, diabetic 32 gauge x #100 ea 12/26/23 04/12/25 Rx 5/32 (Comfort EZ Pen [place]) cetirizine 10 mg capsule (Zyrtec) 10 mg PO DAILY PRN allergy symptoms 09/07/24 05/17/25 History mecobalamin (vitamin B12) 1,000 1,000 mcg PO DAILY 09/07/24 05/17/25 History mcg chewable tablet multivitamin (One-A-Day Essential 1 tablet PO DAILY 09/07/24 05/17/25 History tablet) meloxicam 15 mg tablet See Rx Instructions .Route 12/17/24 05/17/25 Rx .COMPLEX #90 tabs metformin 500 mg tablet,extended See Rx Instructions .Route 12/17/24 05/17/25 Rx release 24 hr .COMPLEX #360 tabs atorvastatin 10 mg tablet See Rx Instructions .Route 01/05/25 05/17/25 Rx .COMPLEX #90 tabs semaglutide 2 mg/dose (8 mg/3 mL) 2 mg (0.75 mL) subcut WEEKLY #3 mL 03/08/25 05/17/25 Rx subcutaneous pen injector (Ozempic) lisinopril 20 mg tablet 20 mg PO DAILY #90 tabs 03/11/25 05/17/25 Rx hydrocodone 5 mg-acetaminophen 325 1 - 2 tablet PO Q6H PRN pain #12 04/02/25 05/17/25 Rx mg tablet tabs Allergies Allergy/AdvReac Type Severity Reaction Status Date / Time No Known Allergies Allergy Verified 05/17/25 09:18 Exam Const: General: no acute distress Resp: Effort & Inspection: normal respiratory effort GI: Inspection: non-distended GI Palp: No abdominal tenderness and No Guarding due to palpation present (GI) Auscultation: normal bowel sounds Assessment and Plan Assessment and plan (1) Right renal stone: Code(s): N20.0 - Calculus of kidney Status: Acute Assessment and Plan: Cystoscopy, right ureteroscopy with laser lithotripsy and stone extraction, possible retrograde pyelogram and stent replacement
[2025-05-27] VITALS (8 sets, daily range): BP systolic 129–155; BP diastolic 71–89; PULSE 74–91; RESP 14–20; TEMP 36.2–36.6; O2SAT 95–100
--- NOTE | ~2025-05-27 | XR_ITS ---
EXAM/PROCEDURE: XR stent kub - surgery HISTORY: RIGHT STENT PLACEMENT COMPARISON: None available. TECHNIQUE: Fluoroscopic stent placement guidance Fluoroscopy time: 56.2 seconds Dose: 43.69 mg FINDINGS: Right-sided ureteral stent placed. IMPRESSION: Placement of right-sided ureteral stent. See also operative/procedure notes for complete evaluation. Reviewed, dictated and finalized at location A. R [employer] IMPRESSION: Placement of right-sided ureteral stent. See also operative/procedu re notes for complete evaluation.
--- NOTE | 2025-05-27 06:04 | WPDHPUPDATE1 ---
History and Physical Update Update Date/Time: 05/27/25 06:04 History and Physical has been reviewed, including an updated exam of the patient. There are NO changes in the patient's condition. Risks, benefits, and alternatives have been discussed and questions answered. Patient agrees to proceed with procedure.
[2025-05-27] MEDS: LACTATED RINGERS 1,000 ML 30 ML IV CONT ×2 (11:00→13:35)
--- NOTE | 2025-05-27 12:03 | WPDANESEPPF ---
Anes - Initial Pre Proc Eval Procedure: Operation Date: 05/27/25 12:30 Proposed Procedures p Cystoscopy, Right Ureteroscopy, Possible Right Retrograde Pyelogram, Laser Lithotripsy, Right Stone Extraction, Possible Right Stent Placement - Timur Romo MD Date/Time: 05/27/25 12:03 Surgeon: Timur Romo MD Pre Op Diagnosis: right ureteral stones Patient Data Age: 69 Gender: M Height: 1.68 m Weight: 129.8 kg Last Vital Signs Temp 36.6 C 05/27/25 11:00 Pulse 91 05/27/25 11:00 Resp 16 05/27/25 11:00 BP 129/75 05/27/25 11:00 Pulse Ox 96 05/27/25 11:00 O2 Del Method Room Air 05/27/25 11:00 Allergies Allergy/AdvReac Type Severity Reaction Status Date / Time No Known Allergies Allergy Verified 05/27/25 11:11 Home Medications ?Medication ?Instructions ?Recorded ?Confirmed ?Type aspirin 81 mg tablet,delayed 81 mg PO DAILY 07/27/19 05/27/25 History release (Adult Low Dose Aspirin) Held on 04/02/25. Instructions: Resume on 04/04/25. Glucosamine Chondroitin 2 cap PO DAILY 02/07/21 05/27/25 History lancets 28 gauge (CareTouch Safety #100 ea 04/15/23 04/12/25 Rx Lancets) blood sugar diagnostic (Contour #300 ea 09/18/23 04/12/25 Rx Next Test Strips) metoprolol succinate 50 mg 50 mg PO DAILY 11/26/23 05/27/25 History tablet,extended release 24 hr pen needle, diabetic 32 gauge x #100 ea 12/26/23 04/12/25 Rx /32 (Comfort EZ Pen [place]) cetirizine 10 mg capsule (Zyrtec) 10 mg PO DAILY PRN allergy symptoms 09/07/24 05/17/25 History mecobalamin (vitamin B12) 1,000 1,000 mcg PO DAILY 09/07/24 05/27/25 History mcg chewable tablet multivitamin (One-A-Day Essential 1 tablet PO DAILY 09/07/24 05/27/25 History tablet) meloxicam 15 mg tablet See Rx Instructions .Route 12/17/24 05/27/25 Rx .COMPLEX #90 tabs metformin 500 mg tablet,extended See Rx Instructions .Route 12/17/24 05/27/25 Rx release 24 hr .COMPLEX #360 tabs atorvastatin 10 mg tablet See Rx Instructions .Route 01/05/25 05/27/25 Rx .COMPLEX #90 tabs semaglutide 2 mg/dose (8 mg/3 mL) 2 mg (0.75 mL) subcut WEEKLY #3 mL 03/08/25 05/27/25 Rx subcutaneous pen injector (Ozempic) lisinopril 20 mg tablet 20 mg PO DAILY #90 tabs 03/11/25 05/27/25 Rx hydrocodone 5 mg-acetaminophen 325 1 - 2 tablet PO Q6H PRN pain #12 04/02/25 05/17/25 Rx mg tablet tabs Laboratory Tests 05/27/25 11:18 POC Capillary Glucose 188 H mg/dl (65-105) Patient hx anesthesia problems: none Family hx anesthesia problems: none Results Review: All pre-operative results and documents have been reviewed as part of the pre-operative evaluation. [facility] Past Medical History Medical History Encounter to establish care Mass of skin of left shoulder Right ureteral calculus Bilateral renal stones External hemorrhoids without complication Type 2 diabetes mellitus SVT (supraventricular tachycardia) Type 2 [place] (myocardial infarction) Elevated troponin History of paroxysmal supraventricular tachycardia Retained ureteral stent Right renal stone Metabolic syndrome Tobacco use Leukocytosis Right ureteral stone Type 2 diabetes mellitus with hyperglycemia Benign essential hypertension Hyperlipidemia LDL goal <100 Morbid obesity Obstructive sleep apnea CPAP Surgical History Surgical History H/O cardiac radiofrequency ablation 07/2023 Family History Family History Sibling Patient's sister is in good health Patient's brother is in good health Father Family history of cardiovascular disease, Onset Age: 80 Family history of lung disease Hypertension History of stroke Carcinoma of colon Mother Family history of cardiovascular disease, Onset Age: 90 Heart disease unsure of type of heart disease Social History Social History Smoking packs per day: 0.75 Smoking cigarettes per day: 15.0 Years smoked: 50 Smoking pack-years: 37.50 Smoking status: Former smoker Tobacco type: cigarettes Second hand tobacco smoke exposure: Yes Smoking end date: 07/15/22 Alcohol intake: never Alcohol use details: SOCIALLY YEARS AGO Substance use: never Substance use type: does not use Living arrangements: with family Additional living arrangements comments: Gender identity (if verbalized by the patient): Male Sexual Orientation (if Verbalized by the Patient): Straight or Heterosexual Spiritual care concerns: No Agree to blood products: Yes Anes - Eval Final PreProcedure Day of Procedure 05/27/25 12:03 Patient weight: morbidly obese Heart: regular rate and rhythm Lungs: decreased breath sounds Airway: Mallampati scale class III Neurological: alert and oriented Last oral intake: >/= 8 hours ASA classification: IV Emergent: no Anesthetic plan: proceed Anesthesia type and monitoring: general LMA and standard monitoring Results Review: All pre-operative results and documents have been reviewed as part of the pre-operative evaluation. Informed Consent: The patient's anesthetic plan and its attendant risks and benefits were discussed with the patient/family/POA. Questions were solicited and answers provided to the satisfaction of the patient/family/POA.
[2025-05-27] MEDS: ceFAZolin 3 GM/D5W 100 ML 100 ML IVPB (12:14)
[2025-05-27] MEDS: LIDOCAINE 2% GEL UROJET 10 ML PKG MUCOUS MEM (12:33)
--- NOTE | 2025-05-27 13:10 | W.PM.PROC2 ---
Procedure Note - Detailed Date of Procedure 05/27/25 Pre-op Diagnosis Rght ureteral stones Post-op Diagnosis Same Procedure Performed Cystoscopy, right ureteroscopy with laser lithotripsy renal calculi, right ureteral stent replacement Surgeon Timur Romo MD Anesthesia General Description of Procedure Patient is brought to the operative suite was prepped draped in routine sterile fashion while in dorsal lithotomy position after the uneventful induction of a general LMA anesthetic. Cystoscopy was undertaken with a 21 F rigid cystoscope. Bladder mucosa is normal with the exception of some edema around the right ureteral orifice is a result of his indwelling stent. The stent is grasped and a 0.035 in guidewire was advanced in the right renal pelvis. Distal ureter was dilated with an 8 F 10 F dilator and safety wire was placed. A 12 F/14 F ureteral access sheath was placed in the renal pelvis. All proximal ureteral stones were washed back into the renal pelvis with the 7.5 F flexible ureteral scope. This back washing of stones was undertaken before advancing the access sheath into the renal pelvis. In the renal pelvis he has callus small stones. I tried grabbing a couple ease in extracting them intact through the 12 F/14 F access sheath without success. Using a 200 micron Moose laser I attempted both stone fragmentation and dusting at 20 w and 40 w respectively. The stones are very very hard and I was only able to break up a few of the small stones after about 30 minutes. In light of that and the total number of stones out that not to persist to minimize risk of [place]. [place] sheath and wires removed in a 6 F variable length stent was appropriately positioned. Scopes wires removed. Will have discussion with patient about percutaneous nephrolithotomy Drains No Packing No Pathology None sent Complications No immediate complications
== END 2025-05-27 14:45 | disposition home or self-care (01) ==
PROVIDERS: PCP Clinical Nurse Specialist; Visit Provider Urology
PROC: (CPT 52352; principal; 2025-05-27 12:30)
DX: N20.1 Calculus of ureter (principal); E11.9 Type 2 diabetes mellitus without complications; Z87.891 Personal history of nicotine dependence; E66.01 Morbid (severe) obesity due to excess calories; Z68.42 Body mass index [BMI] 45.0-49.9, adult
CPT/HCPCS: 52356; 82948; C1769; C1894; C2617; J0690; J1100; J2405; J2704; J7120; Q9966